=== PATIENT | male | born 1945 | race Caucasian/White ===

== ENCOUNTER 2018-07-14 16:07 | Inpatient (IN) | payer OTHER, BC ==
--- NOTE | 2018-07-14 16:34 | PDOC ---
History of Present Illness - General Chief Complaint: Weakness Stated Complaint: WEAKNESS Time Seen by Provider: 07/14/18 16:19 - History of Present Illness Initial Comments: 07/14/18 17:38 The patient is a 72 year old male with a history of HTN, HLD, DM, afib, bladder cancer who presents for evaluation of weakness. The patient reports that he was sitting in a chair when he experienced dizziness and tinnitus with generalized weakness and 1 episode of non-bilious, non-bloody vomiting. He reported that he was unsteady on his feet prompting his presentation to the ED for further evaluation. He reports that his symptoms have been intermittent since arriving to the ED and otherwise denies fevers, chills, SOB, chest pain, abdominal pain, numbness, tingling, focal weakness, or changes with urination or bowel movements. NIH Stroke Scale - Last Known Well Date/Time & Onset Date Last Known Well: 07/14/18 Time Last Known Well: 15:00 - Initial Evaluation Level of consciousness: Alert Ask patient the month and their age: Answers both correctly Ask patient to open & close eyes; make fist and let go: Obeys both correctly Best gaze (horizontal eye movement): Normal Visual field testing: No visual field loss Facial paresis (Show teeth/raise eyebrows/close eyes tight): Normal symmetrical movement Motor Function: Left Arm: Normal Motor Function: Right Arm: Normal (extends arm 90 (or 45) degrees for 10 seconds without drift Motor Function: Left Leg: Normal (extends leg 30 degrees for 5 seconds without drift) Motor Function: Right Leg: Normal (extends leg 30 degrees for 5 seconds without drift) Limb Ataxia: No ataxia Sensory(Use pinprick test arms,legs,trunk,face/side to side): Normal Best language (Describe picture, name items, read sentences): No Aphasia Dysarthria (read several words): Normal articulation Extinction and Inattention: No abnormality - Total Score NIH Stroke Scale Score: 0 Past History - Past Medical History Allergies/Adverse Reactions: Allergies Allergy/AdvReac Type Severity Reaction Status Date / Time No Known Drug Allergies Allergy Verified 07/14/18 16:28 ADHESIVE TAPE AdvReac Intermediate Uncoded 07/14/18 16:28 Home Medications: Ambulatory Orders Unobtainable 07/14/18 Anemia: No Asthma: No Cancer: Yes (BLADDER) Cardiac Disorders: Yes (HISTORY OF PALPITATIONS HAD CARDIAC ABLATION) CVA: No COPD: No CHF: No Dementia: No Diabetes: Yes (NIDDM) GI Disorders: No Disorders: Yes (KIDNEY STONES) HTN: Yes Hypercholesterolemia: Yes Liver Disease: No Seizures: No Thyroid Disease: No - Surgical History Abdominal Surgery: No Appendectomy: Yes Cardiac Surgery: Yes (QUADRUPLE BYPASS,CARDIAC ABLATION 1999) Cholecystectomy: No Lung Surgery: No Neurologic Surgery: No Orthopedic Surgery: No - Immunization History Immunization Up to Date: Yes - Suicide/Smoking/Psychosocial Hx Smoking History: Never smoked Have you smoked in the past 12 months: No Number of Cigarettes Smoked Daily: 30 If you are a former smoker, when did you quit?: 03/26/12 Information on smoking cessation initiated: No 'Breaking Loose' booklet given: 04/14/12 Hx Alcohol Use: No Drug/Substance Use Hx: No Substance Use Type: None Hx Substance Use Treatment: No Review of Systems - Review of Systems Comments:: 07/14/18 17:44 Constitutional: Weakness. No fevers, chills, fatigue, malaise HEENT: Tinnitus. No Rhinorrhea, nasal congestion, visual changes Cardiovascular: Lightheadedness. No chest pain, syncope, palpitations, Respiratory: No Cough, SOB, Hemoptysis, Gastrointestinal: Nausea, vomiting. No Abdominal pain, Constipation, Diarrhea, Melena Genitourinary: No Dysuria, Frequency, Urgency, Hesitancy, Hematuria, Flank pain Musculoskeletal: No Myalgia, arthralgia Skin: No rashes, itching, bruising, pallor Neurologic: Dizziness. No Headache, Numbness, Weakness, or Tingling Psychiatric: No Hallucinations. No SI or HI *Physical Exam - Vital Signs Last Vital Signs Temp Pulse Resp BP Pulse Ox 62 16 189/90 H 98 07/14/18 16:10 07/14/18 16:10 07/14/18 16:10 07/14/18 16:10 - Physical Exam Comments: 07/14/18 17:46 General Appearance: Nourished. No Apparent Distress HEENT: EOMI, DENNIS. Mild right gaze nystagmus on exam. Normal TMs. No Pharyngeal Erythema, Tonsillar Exudate, Tonsillar Erythema Neck: No Cervical Lymphadenopathy Respiratory/Chest: Lungs Clear, Normal Breath Sounds. No Crackles, Rales, Rhonchi, Wheezing Cardiovascular: Regular Rhythm, Regular Rate. No Murmur, Gallops, Rubs Gastrointestinal/Abdominal: Normal Bowel Sounds, Soft. No Guarding, Rebound, Tenderness Musculoskeletal: No CVA Tenderness Extremity: Normal Capillary Refill Integumentary: Normal Color, Dry, Warm Neurologic: radio communication coordinator II-XII NML intact, Fully Oriented, Alert, Normal Mood/Affect, Normal Response, Motor Strength 5/5. Normal Finger to Nose and Heel to Bern[place] ED Treatment Course - LABORATORY CBC & Chemistry Diagram: 07/14/18 18:00 07/14/18 18:00 Medical Decision Making - Medical Decision Making 07/14/18 17:48 The patient is a 72 year old male with a history of HTN, HLD, DM, afib, bladder cancer who presents for evaluation of weakness. Differential includes but is not limited to: Vertigo, Intracranial process, Dehydration, Infectious, Metabolic Derangement. Given the patient's history and physical exam, we will obtain a cbc, cmp, troponin, ekg, ua, head ct to evaluate further. We will treat with iv fluids and continue to monitor and reassess while here in the ED. 07/14/18 20:40 CBC, cmp, troponin is unremarkable. Head CT is unremarkable as read by our radiologist. UA demonstrates positive nitrites, positive leuk esterase, and elevated wbc to 400s consistent with a UTI. Given the patient's pre-syncopal episode and uti, we believe he requires observation admission for further management and monitoring. We will treat the patient with ceftriaxone. We discussed the case with the admitting team who accepted the patient for admission. *DC/Admit/Observation/Transfer Diagnosis at time of Disposition: Pre-syncope UTI (urinary tract infection) Qualifiers: Urinary tract infection type: site unspecified Hematuria presence: without hematuria Qualified Code(s): N39.0 - Urinary tract infection, site not specified - Discharge Dispostion Condition at time of disposition: Stable Decision to Admit order: Yes - Referrals Referrals: Bharat Saldaña MD [Primary Care Provider] - - Patient Instructions - Post Discharge Activity
--- NOTE | 2018-07-14 17:14 | PDOC ---
Attending Attestation - HPI HPI: 07/14/18 17:55 The patient is a 72 year old male, with a significant past medical history of HTN, HLD, DM, afib, bladder cancer, who presents to the ED complaining of weakness onset today. He notes that he was sitting in a chair when his symptoms started. He also reports dizziness, tinnitus and 1 episode of emesis, nonbloody and nonbilious. He notes that he got up on his feet and felt "unsteady", which is the main reason why he came to the ED for evaluation. He denies any urinary or bowel incontinence. The patient denies chest pain, shortness of breath, headache, fever, chills, diarrhea or constipation. Denies dysuria, frequency, urgency and hematuria. Allergies: Past surgical history: QUADRUPLE BYPASS,CARDIAC ABLATION 1999, Appendectomy Social History: No alcohol, tobacco or drug use reported - Physicial Exam PE: 07/14/18 17:55 General Appearance: Nourished. No Apparent Distress HEENT: EOMI, DENNIS. Mild right gaze nystagmus on exam. Normal TMs. No Pharyngeal Erythema, Tonsillar Exudate, Tonsillar Erythema Neck: No Cervical Lymphadenopathy Respiratory/Chest: Lungs Clear, Normal Breath Sounds. No Crackles, Rales, Rhonchi, Wheezing Cardiovascular: Regular Rhythm, Regular Rate. No Murmur, Gallops, Rubs Gastrointestinal/Abdominal: Normal Bowel Sounds, Soft. 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 Normal Finger to Nose and Heel to Bern[place] <David Phan - Last Filed: 07/14/18 18:00> - Resident Resident Name: Tucker Power - ED Attending Attestation I have performed the following: I have examined & evaluated the patient, The case was reviewed & discussed with the resident, I agree w/resident's findings & plan, Exceptions are as noted - Medical Decision Making 07/14/18 21:16 pt has UTI and antibiotics started pt admitted <Sharonda Cherry - Last Filed: 07/14/18 21:16>
[2018-07-14] MEDS ORDERED: SODIUM CHLORIDE 1,000 ML IV STA (17:49)
[2018-07-14] MEDS ORDERED: ONDANSETRON 4 MG/2 ML VIAL IVPUSH ONE (17:49)
[2018-07-14] MEDS ORDERED: MECLIZINE HCL 25 MG TABLET (FP) PO ONE (17:50)
[2018-07-14 18:11] LABS: BASO % 0.5 % (0-2.0); EOS % 0.4 % (0-4.5); HEMATOCRIT 49.6 % (35.4-49); HEMOGLOBIN 16.5 GM/dL (11.7-16.9); LYMPH % 9.8 % (8-40); MCH 28.8 pg (25.7-33.7); MCHC 33.3 g/dl (32.0-35.9); MEAN CELL VOLUME 86.3 fl (80-96); MEAN PLT VOLUME 8.4 fl (7.5-11.1); MONO % 3.2 % (3.8-10.2); NEUT % 86.1 % (42.8-82.8); PLATELET COUNT 200 K/MM3 (134-434); RBC 5.74 M/mm3 (4.00-5.60); RDW 14.5 % (11.9-15.9); WHITE BLOOD COUNT 8.5 K/mm3 (4.0-10.0)
[2018-07-14] MEDS ORDERED: ONDANSETRON 4 MG/2 ML VIAL ONE (18:34)
[2018-07-14] MEDS ORDERED: MECLIZINE HCL 12.5 MG TABLET ONE (18:34)
[2018-07-14 18:37] LABS: INR 1.13 (0.83-1.09); PROTHROMBIN TIME (PATIENT) 13.4 SEC (9.7-13.0)
[2018-07-14 18:40] LABS: ACTIVATED PTT 34.2 SECONDS (25.2-36.5)
[2018-07-14 18:41] LABS: ALBUMIN 3.6 g/dl (3.4-5.0); ALK PHOS 91 U/L (45-117); ANION GAP 6 MMOL/L (8-16); BILIRUBIN,TOTAL 0.3 mg/dL (0.2-1); BLOOD UREA NITROGEN 22 mg/dL (7-18); CALCIUM 9.1 mg/dL (8.5-10.1); CHLORIDE 106 mmol/L (98-107); CO2 28 mmol/L (21-32); CREATININE 1.1 mg/dL (0.55-1.3); GLUCOSE,RANDOM 157 mg/dL (74-106); N-TERMINAL BNP 372.7 pg/ml (5-125); POTASSIUM 4.4 mmol/L (3.5-5.1); SGOT/AST 29 U/L (15-37); SGPT/ALT 34 U/L (13-61); SODIUM 140 mmol/L (136-145); TOT PROT 7.6 g/dl (6.4-8.2)
[2018-07-14 19:21] LABS: URINE APPEARANCE CLOUDY; URINE BILIRUBIN NEGATIVE (<2.0 mg/dL); URINE COLOR YELLOW; URINE GLUCOSE (UA) NEGATIVE (NEGATIVE); URINE KETONE NEGATIVE (NEGATIVE); URINE LEUK ESTERASE 3+ (NEGATIVE); URINE NITRITE POSITIVE (NEGATIVE); URINE PROTEIN 2+ (NEGATIVE); URINE UROBILINOGEN NEGATIVE mg/dL (0.2-1.0)
[2018-07-14 19:26] LABS: EPI CELLS RARE /HPF (FEW); URINE BACTERIA FEW /hpf (NONE SEEN); URINE MUCUS RARE
[2018-07-14] MEDS ORDERED: CEFTRIAXONE 1 GM in DEXTROSE 5%-WATER - 100 ML IVPB ONE (19:34)
--- NOTE | 2018-07-14 20:41 | HP ---
Admitting History and Physical - Primary Care Physician PCP: Izaiah Cartwright - Admission History of Present Illness: 72 year old male with a history of HTN, HLD, DM, afib, bladder cancer who presents for evaluation of weakness. The patient reports that he was sitting in a chair when he experienced dizziness and tinnitus with generalized weakness and 1 episode of non-bilious, non-bloody vomiting. He reported that he was unsteady on his feet prompting his presentation to the ED for further evaluation. He reports that his symptoms have been intermittent since arriving to the ED and otherwise denies fevers, chills, SOB, chest pain, abdominal pain, numbness, tingling, focal weakness, or changes with urination or bowel movements. - Past Medical History Cardiovascular: Yes: AFIB, HTN, Hyperlipdemia Heme/Onc: Yes: Cancer (bladder) Endocrine: Yes: Diabetes Mellitus - Smoking History Smoking history: Never smoked Have you smoked in the past 12 months: No Aproximately how many cigarettes per day: 30 If you are a former smoker, when did you quit?: 03/26/12 - Alcohol/Substance Use Hx Alcohol Use: No Home Medications - Allergies Allergies/Adverse Reactions: Allergies Allergy/AdvReac Type Severity Reaction Status Date / Time No Known Drug Allergies Allergy Verified 07/14/18 16:28 ADHESIVE TAPE AdvReac Intermediate Uncoded 07/14/18 16:28 - Home Medications Home Medications: Ambulatory Orders Aspirin [ASA -] 81 mg PO DAILY 07/15/18 Physical Examination Vital Signs: Vital Signs Temperature Pulse Rate 62 07/14/18 16:10 Respiratory Rate 16 07/14/18 16:10 Blood Pressure 189/90 H 07/14/18 16:10 O2 Sat by Pulse Oximetry (%) 98 07/14/18 16:10 Constitutional: Yes: No Distress HENT: Yes: Atraumatic Neck: Yes: Supple Cardiovascular: Yes: Regular Rate and Rhythm Respiratory: Yes: CTA Bilaterally Gastrointestinal: Yes: Normal Bowel Sounds Extremities: Yes: WNL Neurological: Yes: Alert, Oriented Labs: CBC, BMP 07/14/18 18:00 07/14/18 18:00 Imaging - Results X-ray: Report Reviewed Cat Scan: Report Reviewed Problem List - Problems (1) Pre-syncope Assessment/Plan: tele monitoring fu cardiac enzyme echo cardiology consult Code(s): R55 - SYNCOPE AND COLLAPSE (2) UTI (urinary tract infection) Assessment/Plan: send ucx id consult to determine the need for abx Code(s): N39.0 - URINARY TRACT INFECTION, SITE NOT SPECIFIED Qualifiers: Urinary tract infection type: site unspecified Hematuria presence: without hematuria Qualified Code(s): N39.0 - Urinary tract infection, site not specified Assessment/Plan Laboratory Tests 07/14/18 07/14/18 07/14/18 18:00 18:00 18:00 WBC 8.5 RBC 5.74 H Hgb 16.5 Hct 49.6 H D MCV 86.3 MCH 28.8 MCHC 33.3 RDW 14.5 Plt Count 200 MPV 8.4 Absolute Neuts (auto) 7.3 Neutrophils % 86.1 H Lymphocytes % 9.8 D Monocytes % 3.2 L Eosinophils % 0.4 Basophils % 0.5 Nucleated RBC % 0 PT with INR 13.40 H INR 1.13 H PTT (Actin FS) 34.2 Sodium 140 Potassium 4.4 Chloride 106 Carbon Dioxide 28 Anion Gap 6 L BUN 22 H Creatinine 1.1 Creat Clearance w eGFR > 60 Random Glucose 157 H Calcium 9.1 Total Bilirubin 0.3 AST 29 ALT 34 Alkaline Phosphatase 91 Creatine Kinase 70 Creatine Kinase Index CK-MB (CK-2) Troponin I < 0.02 B-Natriuretic Peptide 372.7 H Total Protein 7.6 Albumin 3.6 Urine Color Urine Appearance Urine pH Ur Specific Axis Urine Protein Urine Glucose (UA) Urine Ketones Urine Blood Urine Nitrite Urine Bilirubin Urine Urobilinogen Ur Leukocyte Esterase Urine WBC (Auto) Urine RBC (Auto) Ur Epithelial Cells Urine Bacteria Urine Mucus 07/14/18 07/14/18 07/15/18 18:46 22:25 07:10 WBC 7.3 RBC 5.25 Hgb 14.6 Hct 45.0 MCV 85.8 MCH 27.9 MCHC 32.5 RDW 14.8 Plt Count 192 MPV 8.5 Absolute Neuts (auto) 5.0 Neutrophils % 68.5 D Lymphocytes % 23.3 D Monocytes % 6.4 D Eosinophils % 1.5 D Basophils % 0.3 Nucleated RBC % 0 PT with INR INR PTT (Actin FS) Sodium Potassium Chloride Carbon Dioxide Anion Gap BUN Creatinine Creat Clearance w eGFR Random Glucose Calcium Total Bilirubin AST ALT Alkaline Phosphatase Creatine Kinase 109 Creatine Kinase Index CK-MB (CK-2) Troponin I < 0.02 B-Natriuretic Peptide Total Protein Albumin Urine Color Yellow Urine Appearance Cloudy Urine pH 5.0 Ur Specific Axis 1.015 Urine Protein 2+ H Urine Glucose (UA) Negative Urine Ketones Negative Urine Blood 2+ H Urine Nitrite Positive Urine Bilirubin Negative Urine Urobilinogen Negative Ur Leukocyte Esterase 3+ H Urine WBC (Auto) 458 Urine RBC (Auto) 10 Ur Epithelial Cells Rare Urine Bacteria Few Urine Mucus Rare 07/15/18 07:10 WBC RBC Hgb Hct MCV MCH MCHC RDW Plt Count MPV Absolute Neuts (auto) Neutrophils % Lymphocytes % Monocytes % Eosinophils % Basophils % Nucleated RBC % PT with INR INR PTT (Actin FS) Sodium 140 Potassium 4.0 Chloride 106 Carbon Dioxide 26 Anion Gap 8 BUN 22 H Creatinine 1.1 Creat Clearance w eGFR > 60 Random Glucose 89 Calcium 8.9 Total Bilirubin 0.6 AST 37 ALT 33 Alkaline Phosphatase 80 Creatine Kinase 199 Creatine Kinase Index 1.5 CK-MB (CK-2) 3.0 Troponin I 0.02 B-Natriuretic Peptide Total Protein 7.0 Albumin 3.4 Urine Color Urine Appearance Urine pH Ur Specific Axis Urine Protein Urine Glucose (UA) Urine Ketones Urine Blood Urine Nitrite Urine Bilirubin Urine Urobilinogen Ur Leukocyte Esterase Urine WBC (Auto) Urine RBC (Auto) Ur Epithelial Cells Urine Bacteria Urine Mucus Active Medications Generic Name Dose Route Start Last Admin Trade Name Freq PRN Reason Stop Dose Admin Acetaminophen 650 mg 07/14/18 20:49 Tylenol - PO Q6H PRN FEVER
[2018-07-14] MEDS ORDERED: ACETAMINOPHEN 325 MG TABLET (FP) PO PRN (20:49)
[2018-07-14] MEDS ORDERED: CEFTRIAXONE 1 GM/50 ML BAG ONE ×2 (21:05→23:07)
[2018-07-15 07:29] LABS: BASO % 0.3 % (0-2.0); EOS % 1.5 % (0-4.5); HEMOGLOBIN 14.6 GM/dL (11.7-16.9); LYMPH % 23.3 % (8-40); MCH 27.9 pg (25.7-33.7); MCHC 32.5 g/dl (32.0-35.9); MEAN CELL VOLUME 85.8 fl (80-96); MEAN PLT VOLUME 8.5 fl (7.5-11.1); MONO % 6.4 % (3.8-10.2); NEUT % 68.5 % (42.8-82.8); PLATELET COUNT 192 K/MM3 (134-434); RBC 5.25 M/mm3 (4.00-5.60); RDW 14.8 % (11.9-15.9); WHITE BLOOD COUNT 7.3 K/mm3 (4.0-10.0)
[2018-07-15 08:54] LABS: ALBUMIN 3.4 g/dl (3.4-5.0); ALK PHOS 80 U/L (45-117); ANION GAP 8 MMOL/L (8-16); BILIRUBIN,TOTAL 0.6 mg/dL (0.2-1); BLOOD UREA NITROGEN 22 mg/dL (7-18); CALCIUM 8.9 mg/dL (8.5-10.1); CHLORIDE 106 mmol/L (98-107); CO2 26 mmol/L (21-32); CREATININE 1.1 mg/dL (0.55-1.3); GLUCOSE,RANDOM 89 mg/dL (74-106); SGOT/AST 37 U/L (15-37); SGPT/ALT 33 U/L (13-61); SODIUM 140 mmol/L (136-145)
--- NOTE | 2018-07-15 12:25 | CON.CARD ---
Consult Consult Specialty:: Cardiology Referred by:: Dr. Cartwright Reason for Consultation:: Dizziness - History of Present Illness Chief Complaint: dizziness, unsteady gait History of Present Illness: 72-year-old man with the history of hypertension, hyperlipidemia, diabetes type II, coronary artery disease with four-vessel CABG in 1999, arrhythmia at that time which I believe was atrial flutter versus atrial fibrillation. He underwent two ablations in 2000, has not been on anticoagulation for some time due to hematuria from Bladder cancer, has been treated at [facility] for his bladder cancer with remission, is still being treated, also peripheral artery disease with right lower extremity stents, Bradycardia when on bisoprolol with improvement after stopping it with no evidence of high degree heart block or symptomatic bradycardia on prior Holter monitors, now admitted with dizziness and unsteady gait. Pt has a history of vertigo and states these symptoms were similar but much worse. states that he developed sudden onset loud ringing in his ear and when he stood up felt fullness in his head and severe dizziness, he walked down to his buildings lobby but was very unsteady and leaning to the side. he then had the doorman call EMS. currently dizziness has resolved. still hears mild ringing in the left ear. denies syncope. no chest pain or sob or palpitations. EKG 09/11/2016 Sinus bradycardia, 47 beats per minute, intermittent junctional rhythm, APCs, septal infarct, possible lateral infract. Stress 09/11/2016 Exercise treadmill stress test, the patient performed 3 minutes 46 seconds of standard Glenn protocol, target heart rate was not achieved, test was terminated due to leg pain, no chest pain with exercise, heart rate increased from 50 to 82 beats per minute, stress ECG was nondiagnostic as target heart rate was not achieved. Stress 09/14/2016 Pharmacologic nuclear stress test likely diaphragmatic attenuation artifact, there is no evidence of vasodilator induced ischemia, LVEF 57%. Holter monitor 09/11/2016 to 09/12/2016 Sinus bradycardia, intermittent junctional bradycardia, occasional PVCs, no episodes of high degree heart block. Carotid Doppler 09/14/2016 Bilateral plaque with no evidence of significant stenosis. Echo 09/14/2016 Normal left ventricular size and function, normal right ventricular size and function, no pericardial effusion, mildly dilated ascending aorta 3.8 cm, mild mitral regurgitation, insufficient TR to measure pulmonary artery pressure. EC03/11/18 sinus bradycardia 58bpm, apcs, septal infarct. 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 Cardio/Vascular: Yes: AFIB, CAD, HTN, Hyperlipdemia Renal/: Yes: Cancer Endocrine: Yes: Diabetes Mellitus - Past Surgical History Past Surgical History: Yes: CABG - Alcohol/Substance Use Hx Alcohol Use: No - Smoking History Smoking history: Never smoked Have you smoked in the past 12 months: No Aproximately how many cigarettes per day: 30 If you are a former smoker, when did you quit?: 03/26/12 - Social History ADL: Independent History of Recent Travel: No Home Medications - Allergies Allergies/Adverse Reactions: Allergies Allergy/AdvReac Type Severity Reaction Status Date / Time No Known Drug Allergies Allergy Verified 07/14/18 16:28 ADHESIVE TAPE AdvReac Intermediate Uncoded 07/14/18 16:28 - Home Medications Home Medications: Ambulatory Orders Aspirin [ASA -] 81 mg PO DAILY 07/15/18 Family Disease History - Family Disease History Family History: Denies Review of Systems - Review of Systems Constitutional: reports: Weakness. denies: No Symptoms, Chills, Diaphoresis, Fever, Lethargy, Loss of Appetite, Malaise, Night Sweats, Unintentional Wgt. Loss, Other Eyes: denies: No Symptoms, Blind Spots, Blurred Vision, Double Vision, Eye Pain , Floaters, Photophobia, Recent Change in Vision, Other HENT: reports: Ringing in Ears. denies: No Symptoms, Difficult Swallowing, Ear Discharge, Ear Pain, Epistaxis, Gingival Bleeding, Hearing Loss, Mouth Swelling , Nasal Congestion, Ocular Prosthesis, Throat Pain, Toothache, Other Neck: denies: No Symptoms, Decreased ROM, Lumps, Pain on Movement, Stiffness, Swollen Glands, Tenderness, Other Cardiovascular: denies: No Symptoms, Chest Pain, Edema, Palpitations, Shortness of Breath, Other Respiratory: denies: No Symptoms, Cough, Exercise Intolerance, Hemoptysis, Orthopnea, PND, Snoring, SOB, SOB on Exertion, Wheezing, Other Gastrointestinal: denies: No Symptoms, Abdominal Pain, Bloating, Constipation, Diarrhea, Dysphagia, Indigestion, Melena, Nausea, Rectal Bleeding, Vomiting, Vomiting Blood, Other Genitourinary: denies: No Symptoms, Burning, Discharge, Dysuria, Flank Pain, Frequency, Hematuria, Incontinence, Lesions, Menses, Pain, Testicular Mass, Testicular Pain, Testicular Swelling, Urgency, Vaginal Bleeding, Other Breasts: denies: No Symptoms Reported, See HPI, Breast Implants, Discharge from Nipple, Lumps, Pain, Skin Changes, Other Musculoskeletal: denies: No Symptoms, Back Pain, Crepitus, Decreased ROM, Extremity Pain, Joint Pain, Joint Swelling, Muscle Pain, Muscle Cramps, Muscle Weakness, Other Integumentary: denies: No Symptoms, Blister, Bruising, Change in Color, Eczema, Erythema, Incision, Lesions, Lump, Pallor, Pruritis, Rash, Wound, Other Neurological: reports: Dizziness, Unsteady Gait. denies: No Symptoms, Change in LOC, Change in Speech, Confusion, Headache, Incoordination, Numbness, Parasthesia, Pre-Existing Deficit, Seizure, Syncope, Tremors, Weakness, Other Endocrine: denies: No Symptoms, Excessive Sweating, Flushing, Increased Hunger, Increased Thirst, Intolerance to Cold, Intolerance to Heat, Unexplained Weight Gain, Unexplained Weight Loss, Other Hematology/Lymphatic: denies: No Symptoms, Easily Bruised, Excessive Bleeding, Swollen Glands, Other Psychiatric: denies: No Symptoms, Altered Sleep Pattern, Anxiety, Depression, Hallucinations, Panic, Paranoia, Suicidal, Other - Risk Factors Known Risk Factors: Yes: Age, Diabetes Mellitus, Hypercholesterolemia, Hypertension Vital Signs: Vital Signs Temperature Pulse Rate 62 07/15/18 09:22 Respiratory Rate 16 07/15/18 09:22 Blood Pressure 125/67 07/15/18 09:22 O2 Sat by Pulse Oximetry (%) 98 07/15/18 09:22 Constitutional: Yes: Well Nourished, No Distress, Calm Eyes: Yes: WNL, Conjunctiva Clear, EOM Intact HENT: Yes: WNL, Atraumatic, Normocephalic Neck: Yes: WNL, Supple, Trachea Midline Respiratory: Yes: WNL, Regular, CTA Bilaterally. No: Rales, Rhonchi, Wheezes Gastrointestinal: Yes: WNL, Normal Bowel Sounds, Soft. No: Distention, Tenderness Renal/: Yes: WNL Cardiovascular: Yes: WNL, Regular Rate and Rhythm. No: Bradycardia, Tachycardia , Pulse Irregular, Gallop, Rub, Varicosities JVD: No Carotid Bruit: No PMI: Non-Displaced Heart Sounds: Yes: S1, S2. No: Split S2, S3, S4, Clicks, Gallop, Rub, Bruit Murmur: No: Systolic Murmur, Diastolic Murmur Musculoskeletal: Yes: WNL Extremities: Yes: WNL Edema: No Peripheral Pulses WNL: Yes Neurological: Yes: Alert, Oriented Psychiatric: Yes: Alert, Oriented - Other Data Labs, Other Data: CBC, BMP 07/15/18 07:10 07/15/18 07:10 INR, PTT INR 1.13 (0.83-1.09) H 07/14/18 18:00 Troponin, BNP 07/14/18 07/14/18 07/15/18 18:00 22:25 07:10 Troponin I < 0.02 < 0.02 0.02 B-Natriuretic Peptide 372.7 H Troponin, BNP 07/14/18 07/14/18 07/15/18 18:00 22:25 07:10 Troponin I < 0.02 < 0.02 0.02 B-Natriuretic Peptide 372.7 H ekg-sinus rebecca 57bpm, apcs, anteroseptal infarct age undetermined Echo: Report Reviewed Prior Cardiac Procedures: CABG Imaging - Results Chest X-ray: Report Reviewed, Image Reviewed EKG: Report Reviewed, Image Reviewed Other: Report Reviewed, Image Reviewed (tele-currently nsr 60-70s) Assessment/Plan 72-year-old man with the history of hypertension, hyperlipidemia, diabetes type II, coronary artery disease with four-vessel CABG in 1999, arrhythmia at that time which I believe was atrial flutter versus atrial fibrillation. He underwent two ablations in 2000, has not been on anticoagulation for some time due to hematuria from Bladder cancer, has been treated at [facility] for his bladder cancer with remission, is still being treated, also peripheral artery disease with right lower extremity stents, Bradycardia when on bisoprolol with improvement after stopping it with no evidence of high degree heart block or symptomatic bradycardia on prior Holter monitors, now admitted with dizziness and unsteady gait. Pt has a history of vertigo and states these symptoms were similar but much worse. states that he developed sudden onset loud ringing in his ear and when he stood up felt fullness in his head and severe dizziness, he walked down to his buildings lobby but was very unsteady and leaning to the side. he then had the doorman call EMS. currently dizziness has resolved. still hears mild ringing in the left ear. denies syncope. no chest pain or sob or palpitations. EKG 09/11/2016 Sinus bradycardia, 47 beats per minute, intermittent junctional rhythm, APCs, septal infarct, possible lateral infract. Stress 09/11/2016 Exercise treadmill stress test, the patient performed 3 minutes 46 seconds of standard Glenn protocol, target heart rate was not achieved, test was terminated due to leg pain, no chest pain with exercise, heart rate increased from 50 to 82 beats per minute, stress ECG was nondiagnostic as target heart rate was not achieved. Stress 09/14/2016 Pharmacologic nuclear stress test likely diaphragmatic attenuation artifact, there is no evidence of vasodilator induced ischemia, LVEF 57%. Holter monitor 09/11/2016 to 09/12/2016 Sinus bradycardia, intermittent junctional bradycardia, occasional PVCs, no episodes of high degree heart block. Carotid Doppler 09/14/2016 Bilateral plaque with no evidence of significant stenosis. Echo 09/14/2016 Normal left ventricular size and function, normal right ventricular size and function, no pericardial effusion, mildly dilated ascending aorta 3.8 cm, mild mitral regurgitation, insufficient TR to measure pulmonary artery pressure. EC03/11/18 sinus bradycardia 58bpm, apcs, septal infarct. Dizziness-uncertain etiology -possible vertigo possible TIA -[facility] Neurology evaluation -pt has known bradyarrhythmia for years that has been asymptomatic, currently no evidence of high degree heart block, HR is wnl - Holter monitor 09/2016 showed only sinus bradycardia, occasional junctional rhythm, narrow complex, no other evidence of high degree block. - Currently no absolute indication for permanent pacemaker placement, but is monitored closely as outpatient as he may need in the future -if pt remains inpatient would monitor on tele, if discharged will arrange another outpatient event monitor to evaluate further for higher degree heart block -avoid all AV lizett blockers Coronary artery disease status post CABG in 1999. - No ischemia on nuclear stress test 09/14/2016 with normal EF. - The patient should be taking aspirin 81 mg daily if no bleeding from his procedures -statin if needed for goal LDL less than 100. - Beta-cecilio was stopped as above. - Normal LV function on most recent echocardiogram. -no concerning symptoms at this time, will cont to monitor Arrhythmia History of an arrhythmia which I presumed was atrial fibrillation or atrial flutter and underwent two oblations in 2000. - Very rare palpitations 1-2x per year making holter monitor difficult to time. - Taken off of beta-cecilio as above due to bradycardia. - He has not been on full anticoagulation due to hematuria from his bladder cancer and procedures. -If indeed it was afib he had in the past he has palpitations only 1-2x per year and thus the Risk is likely greater than the Benefit of full AC at this time given his ongoing bladder treatments. Once he completes his bladder treatments if it is felt that full AC is safe would reconsider at that time. -if it was aflutter he had in the past and not afib and now s/p ablation likely risk of thromboembolism is less and would be less inclined to restart full AC - Would continue aspirin 81 mg daily for now -outpatient fup
--- NOTE | 2018-07-15 12:30 | CON.ID ---
Consult Consult Specialty:: infetious diseases Reason for Consultation:: ams ,uti - History of Present Illness Chief Complaint: confusion History of Present Illness: 72-year-old man with the history of hypertension, hyperlipidemia, diabetes type II, coronary artery disease with four-vessel CABG in 1999, arrhythmia at that time which I believe was atrial flutter versus atrial fibrillation. He underwent two ablations in 2000, has not been on anticoagulation for some time due to hematuria from Bladder cancer, has been treated at [facility] [place] his bladder cancer with remission, is still being treated, also peripheral artery disease with right lower extremity stents, Bradycardia when on bisoprolol with improvement after stopping it with no evidence of high degree heart block or symptomatic bradycardia on prior Holter monitors, now admitted with dizziness and unsteady gait. Pt has a history of vertigo and states these symptoms were similar but much worse. states that he developed sudden onset loud ringing in his ear and when he stood up felt fullness in his head and severe dizziness, he walked down to his buildings lobby but was very unsteady and leaning to the side. he then had the doorman call EMS. currently dizziness has resolved. still hears mild ringing in the left ear. denies syncope. no chest pain or sob or palpitations. - History Source History Provided By: Patient, Medical Record Limitations to Obtaining History: Clinical Condition - Past Medical History Cardio/Vascular: Yes: AFIB, HTN, Hyperlipdemia Endocrine: Yes: Diabetes Mellitus - Alcohol/Substance Use Hx Alcohol Use: No - Smoking History Smoking history: Never smoked Have you smoked in the past 12 months: No Aproximately how many cigarettes per day: 30 If you are a former smoker, when did you quit?: 03/26/12 Home Medications - Allergies Allergies/Adverse Reactions: Allergies Allergy/AdvReac Type Severity Reaction Status Date / Time No Known Drug Allergies Allergy Verified 07/14/18 16:28 ADHESIVE TAPE AdvReac Intermediate Uncoded 07/14/18 16:28 - Home Medications Home Medications: Ambulatory Orders Aspirin [ASA -] 81 mg PO DAILY 07/15/18 Review of Systems Unable to obtain ROS, reason: unable to obtain Physical Exam Vital Signs: Vital Signs Temperature Pulse Rate 62 07/15/18 09:22 Respiratory Rate 16 07/15/18 09:22 Blood Pressure 125/67 07/15/18 09:22 O2 Sat by Pulse Oximetry (%) 98 11/13/18 09:22 Constitutional: Yes: Well Nourished, Calm, Other Eyes: Yes: Conjunctiva Clear Neck: Yes: Supple, Trachea Midline Cardiovascular: Yes: Pulse Irregular Respiratory: Yes: Regular, CTA Bilaterally Gastrointestinal: Yes: Normal Bowel Sounds, Soft Renal/: Yes: Other (patient leaking urine) Musculoskeletal: Yes: WNL Extremities: Yes: WNL Neurological: Yes: Alert, Confusion Psychiatric: Yes: Other Labs: CBC, BMP 07/15/18 07:10 07/15/18 07:10 Imaging - Results Chest X-ray: Report Reviewed, Image Reviewed Cat Scan: Report Reviewed, Image Reviewed Assessment/Plan Problem List - Problems (1) Pre-syncope Code(s): R55 - SYNCOPE AND COLLAPSE (2) UTI (urinary tract infection) Code(s): N39.0 - URINARY TRACT INFECTION, SITE NOT SPECIFIED Qualifiers: Urinary tract infection type: site unspecified Hematuria presence: without hematuria Qualified Code(s): N39.0 - Urinary tract infection, site not specified r/o urinary retention patient extremely confused,talking well plan await for cx report will start patient on abx will adjust according to cx report psych evaluation rest as per the team
--- NOTE | 2018-07-15 14:42 | ECHO ---
Name: CORNELIO LAMBERT Exam:Adult Echocardiogram Study Date: 07/15/2018 09:36 AM Age: 72 yrs Reason For Study: SYNCOPE Height: 69 in Weight: 200 lb BSA: 2.1 m2 MMode/2D Measurements & Calculations IVSd: 1.1 cm Ao root diam: 3.7 cm LVIDd: 4.8 cm LA dimension: 3.8 cm LVIDs: 3.1 cm LVPWd: 0.95 cm EDV(Teich): 107.3 ml ESV(Teich): 36.6 ml Doppler Measurements & Calculations MV E max norman: 43.9 cm/sec Ao V2 max: 130.3 cm/sec MV A max norman: 59.7 cm/sec Ao max P.8 mmHg MV E/A: 0.74 LV V1 max P.1 mmHg PI end-d norman: 117.4 cm/sec LV V1 max: 73.3 cm/sec Med Peak E' Norman: 4.3 cm/sec Med E/e': 10.2 Lat Peak E' Norman: 10.1 cm/sec Lat E/e': 4.3 Procedure A two-dimensional transthoracic echocardiogram with color flow and Doppler was performed. Left Ventricle The left ventricular size, thickness and function are normal. Ejection Fraction = 55. Grade I diastol ic dysfunction, (abnormal relaxation pattern). Right Ventricle The right ventricle is normal in size and function. Atria Normal left and right atrial size and function. Mitral Valve The mitral valve is grossly normal. There is trace mitral regurgitation. Tricuspid Valve The tricuspid valve is not well visualized, but is grossly normal. There was insufficient TR detected to calculate RV systolic pressure. Aortic Valve The aortic valve is normal in structure and function. There is mild aortic valve thickening. No hemodynamically significant valvular aortic stenosis. Pulmonic Valve The pulmonic valve is not well seen, but is grossly normal. Trace to mild pulmonic valvular regurgita tion. Great Vessels Mild aortic root dilatation. Pericardium/Pleura There is no pericardial effusion. Interpretation Summary The left ventricular size, thickness and function are normal Normal left and right atrial size and function. Grade I diastolic dysfunction, (abnormal relaxation pattern). There is trace mitral regurgitation. There was insufficient TR detected to calculate RV systolic pressure. No hemodynamically significant valvular aortic stenosis. Trace to mild pulmonic valvular regurgitation. Mild aortic root dilatation. There is no pericardial effusion. MD Austin Garcia 07/15/2018 02:41 PM
--- NOTE | 2018-07-15 16:30 | EKG ---
Test Reason : Blood Pressure : / mmHG Vent. Rate : 069 BPM Atrial Rate : 069 BPM P-R Int : 000 ms QRS Dur : 124 ms QT Int : 490 ms P-R-T Axes : 000 031 074 degrees QTc Int : 525 ms SINUS RHYTHM WITH PREMATURE ATRIAL COMPLEXES ANTEROSEPTAL INFARCT (CITED ON OR BEFORE 09-APR-2012) ABNORMAL ECG WHEN COMPARED WITH ECG OF 14-JUL-2018 16:38, NO SIGNIFICANT CHANGE WAS FOUND Confirmed by MD Radha, Austin ([id number]) on 07/15/2018 4:29:35 PM Referred By: Confirmed By:Austin Garcia MD
--- NOTE | 2018-07-15 17:30 | PN ---
Progress Note, Physician - Current Medication List Current Medications: Active Medications Acetaminophen (Tylenol -) 650 mg PO Q6H PRN PRN Reason: FEVER - Objective Vital Signs: Vital Signs Temperature 98.0 F 07/15/18 16:30 Pulse Rate 56 L 07/15/18 16:30 Respiratory Rate 16 07/15/18 16:30 Blood Pressure 124/54 L 07/15/18 16:30 O2 Sat by Pulse Oximetry (%) 98 07/15/18 16:30 Constitutional: Yes: No Distress HENT: Yes: Atraumatic Neck: Yes: Supple Cardiovascular: Yes: Regular Rate and Rhythm Respiratory: Yes: CTA Bilaterally Gastrointestinal: Yes: Normal Bowel Sounds Extremities: Yes: WNL Edema: No Peripheral Pulses WNL: Yes Neurological: Yes: Alert, Oriented Labs: CBC, BMP 07/15/18 07:10 07/15/18 07:10 INR, PTT INR 1.13 (0.83-1.09) H 07/14/18 18:00 Problem List - Problems (1) Pre-syncope Assessment/Plan: tele monitoring cardiac enzyme...negative echo cardiology consult Code(s): R55 - SYNCOPE AND COLLAPSE (2) UTI (urinary tract infection) Assessment/Plan: send ucx id consult to determine the need for abx Code(s): N39.0 - URINARY TRACT INFECTION, SITE NOT SPECIFIED Qualifiers: Urinary tract infection type: site unspecified Hematuria presence: without hematuria Qualified Code(s): N39.0 - Urinary tract infection, site not specified
[2018-07-15 18:41] VITALS: BMI 34.7
[2018-07-15] MEDS ORDERED: PNEUMOC 13-VAL CONJ-DIP CRM/PF 0.5 ML DISP.SYRIN IM ONE (19:00)
--- NOTE | 2018-07-15 20:53 | HOSP ---
Subjective - Review of Symptoms Events since last encounter: Called to see patient at 9 pm. Upon arrival patient on the ground and being held down by security. Per nurse patient was trying to leve AMA. Nurse called PCP who stated patient is not competent to leave. Ordered 2 mg Ativan, 25 IV benadryl, jovanni vest restraint and 1:1 watch. Physical Examination Vital Signs: Vital Signs Temperature 98.2 F 07/15/18 18:00 Pulse Rate 59 L 07/15/18 18:00 Respiratory Rate 20 07/15/18 18:00 Blood Pressure 140/74 07/15/18 18:00 O2 Sat by Pulse Oximetry (%) 98 07/15/18 19:00 Labs: CBC, BMP 07/15/18 07:10 07/15/18 07:10 Visit type - Emergency Visit Emergency Visit: No - New Patient This patient is new to me today: Yes Date on this admission: 07/20/18 - Critical Care Critical Care patient: No
[2018-07-15] MEDS ORDERED: LORazepam 2 MG/ML SDV VIAL IVPUSH ONE (21:00)
[2018-07-15] MEDS ORDERED: LORazepam 2 MG/ML SDV VIAL ONE (21:00)
[2018-07-15] MEDS ORDERED: cefTRIAXone SODIUM 1 GM VIAL ONE (23:13)
[2018-07-15] MEDS ORDERED: DEXTROSE 5%-WATER - 50 ML IVPB ONE (23:14)
[2018-07-15] MEDS: CEFTRIAXONE 1 GM in DEXTROSE 5%-WATER - 50 ML IVPB SCH (23:23)
[2018-07-16] MEDS ORDERED: CEFTRIAXONE 1 GM in DEXTROSE 5%-WATER - 50 ML IVPB SCH (10:00)
[2018-07-16] MEDS ORDERED: DEXTROSE 5%-WATER - 50 ML IVPB ONE (10:28)
[2018-07-16] MEDS ORDERED: cefTRIAXone SODIUM 1 GM VIAL ONE (10:28)
[2018-07-16] MEDS: CEFTRIAXONE 1 GM in DEXTROSE 5%-WATER - 50 ML IVPB SCH (10:37)
--- NOTE | 2018-07-16 12:48 | EKG ---
Test Reason : Blood Pressure : / mmHG Vent. Rate : 057 BPM Atrial Rate : 057 BPM P-R Int : 172 ms QRS Dur : 124 ms QT Int : 516 ms P-R-T Axes : 010 016 076 degrees QTc Int : 502 ms SINUS BRADYCARDIA WITH PREMATURE ATRIAL COMPLEXES ANTEROSEPTAL INFARCT (CITED ON OR BEFORE 09-APR-2012) ABNORMAL ECG WHEN COMPARED WITH ECG OF 09-APR-2012 10:23, PREMATURE ATRIAL COMPLEXES ARE NOW PRESENT QRS DURATION HAS INCREASED Confirmed by REECE CLAUDIO, SELINA ([id number]) on 07/16/2018 12:47:51 PM Referred By: Confirmed By:SELINA NEWELL MD
--- NOTE | 2018-07-16 13:15 | PN ---
Progress Note, Physician History of Present Illness: patient continues to be confused events noted from this morning according tot he staff patient is dribbling urine also smelling of urine - Current Medication List Current Medications: Active Medications Acetaminophen (Tylenol -) 650 mg PO Q6H PRN PRN Reason: FEVER Ceftriaxone Sodium 1 gm/ (Dextrose) 50 mls @ 100 mls/hr IVPB DAILY NAN; Protocol Last Admin: 07/16/18 10:37 Dose: 100 mls/hr - Objective Vital Signs: Vital Signs Temperature 98.4 F 07/16/18 10:00 Pulse Rate 57 L 07/16/18 10:00 Respiratory Rate 20 07/16/18 10:00 Blood Pressure 138/76 07/16/18 10:00 O2 Sat by Pulse Oximetry (%) 96 07/15/18 21:00 Constitutional: Yes: No Distress, Calm Cardiovascular: Yes: Regular Rate and Rhythm Respiratory: Yes: Regular, CTA Bilaterally Gastrointestinal: Yes: Normal Bowel Sounds, Soft Musculoskeletal: Yes: WNL Extremities: Yes: WNL Neurological: Yes: Confusion Psychiatric: Yes: Other Labs: CBC, BMP 07/15/18 07:10 07/15/18 07:10 INR, PTT INR 1.13 (0.83-1.09) H 07/14/18 18:00 Assessment/Plan Problem List - Problems (1) Pre-syncope Code(s): R55 - SYNCOPE AND COLLAPSE (2) UTI (urinary tract infection) Code(s): N39.0 - URINARY TRACT INFECTION, SITE NOT SPECIFIED Qualifiers: Urinary tract infection type: site unspecified Hematuria presence: without hematuria Qualified Code(s): N39.0 - Urinary tract infection, site not specified r/o urinary retention plan check for urinary retention might need urology to see the patient await for identification of the bacteria rest as per the team
--- NOTE | 2018-07-16 14:46 | PN ---
Progress Note, Physician - Current Medication List Current Medications: Active Medications Acetaminophen (Tylenol -) 650 mg PO Q6H PRN PRN Reason: FEVER Ceftriaxone Sodium 1 gm/ (Dextrose) 50 mls @ 100 mls/hr IVPB DAILY NAN; Protocol Last Admin: 07/16/18 10:37 Dose: 100 mls/hr - Objective Vital Signs: Vital Signs Temperature 98.4 F 07/16/18 10:00 Pulse Rate 57 L 07/16/18 10:00 Respiratory Rate 20 07/16/18 10:00 Blood Pressure 138/76 07/16/18 10:00 O2 Sat by Pulse Oximetry (%) 96 07/15/18 21:00 Constitutional: Yes: No Distress HENT: Yes: Atraumatic Neck: Yes: Supple Cardiovascular: Yes: Regular Rate and Rhythm Respiratory: Yes: CTA Bilaterally Gastrointestinal: Yes: Normal Bowel Sounds Extremities: Yes: WNL Edema: No Peripheral Pulses WNL: Yes Neurological: Yes: Alert, Oriented Labs: CBC, BMP 07/15/18 07:10 07/15/18 07:10 INR, PTT INR 1.13 (0.83-1.09) H 07/14/18 18:00 Problem List - Problems (1) Pre-syncope Assessment/Plan: tele monitoring cardiac enzyme...negative echo cardiology consult Code(s): R55 - SYNCOPE AND COLLAPSE (2) UTI (urinary tract infection) Assessment/Plan: send ucx id consult to determine the need for abx Code(s): N39.0 - URINARY TRACT INFECTION, SITE NOT SPECIFIED Qualifiers: Urinary tract infection type: site unspecified Hematuria presence: without hematuria Qualified Code(s): N39.0 - Urinary tract infection, site not specified
--- NOTE | 2018-07-16 16:11 | PN ---
Progress Note, Physician History of Present Illness: seen and examined today. events overnight noted, pt was reportedly agitated and had to be restrained. pt remembers the event denies being confused. no further dizziness, no chest pain, sob, palpitations. - Current Medication List Current Medications: Active Medications Acetaminophen (Tylenol -) 650 mg PO Q6H PRN PRN Reason: FEVER Ceftriaxone Sodium 1 gm/ (Dextrose) 50 mls @ 100 mls/hr IVPB DAILY NAN; Protocol Last Admin: 07/16/18 10:37 Dose: 100 mls/hr - Objective Vital Signs: Vital Signs Temperature 98.2 F 07/16/18 14:15 Pulse Rate 72 07/16/18 14:15 Respiratory Rate 20 07/16/18 14:15 Blood Pressure 147/63 07/16/18 14:15 O2 Sat by Pulse Oximetry (%) 96 07/15/18 21:00 Constitutional: Yes: No Distress, Calm Eyes: Yes: Conjunctiva Clear, EOM Intact HENT: Yes: Atraumatic, Normocephalic Neck: Yes: Supple, Trachea Midline Cardiovascular: Yes: Regular Rate and Rhythm, S1, S2. No: Bradycardia, Tachycardia, Pulse Irregular, Bruit, JVD, Gallop, Murmur, Rub, S3, S4, Varicosities Respiratory: Yes: Regular, CTA Bilaterally. No: Rales, Rhonchi, SOB, Wheezes Gastrointestinal: Yes: Normal Bowel Sounds, Soft. No: Distention, Tenderness Musculoskeletal: Yes: WNL Edema: No Peripheral Pulses WNL: Yes Neurological: Yes: Alert, Oriented Psychiatric: Yes: Alert, Oriented Labs: CBC, BMP 07/15/18 07:10 07/15/18 07:10 INR, PTT INR 1.13 (0.83-1.09) H 07/14/18 18:00 - ....Imaging Chest X-ray: Report Reviewed, Image Reviewed EKG: Report Reviewed, Image Reviewed Other: Report Reviewed, Image Reviewed (tele-nsr, mild sinus rebecca 55-60bpm, occasional junctional rhythm) Assessment/Plan Dizziness-uncertain etiology -possible vertigo possible TIA, possible confusion and agitation -[facility] Neurology evaluation -no significant arrhythmias overnight -avoid all AV lizett blockers -can dc tele -outpatient fup with fl -no additional inpatient cardiac work up needed at this time Please call with any additional questions.
--- NOTE | 2018-07-16 19:23 | CON.PSY ---
Psychiatry Consult Chief Complaint: 78n yearvold male admitted with AMS probably secondary to underlying medical conditions> patient apparantly became agitated last night and attempted to leave the Hospital.Appears some what angry that nothing is being done to help him. Claims he has been here since Saturday, appears somewhat confused. Symptoms: reports: Inability to Control Temper, Aggressivity, Impulsivity, Oppositionalism - Previous Psychiatric Treatment Outpatient: None Inpatient: None - Previous Substance Abuse Treatment Outpatient: None Inpatient: None - Current Medications Current Medications: Active Medications Acetaminophen (Tylenol -) 650 mg PO Q6H PRN PRN Reason: FEVER Ceftriaxone Sodium 1 gm/ (Dextrose) 50 mls @ 100 mls/hr IVPB DAILY NAN; Protocol Last Admin: 07/16/18 10:37 Dose: 100 mls/hr Olanzapine (Zyprexa -) 2.5 mg PO HS NAN - Allergies Allergies: Allergies Allergy/AdvReac Type Severity Reaction Status Date / Time No Known Drug Allergies Allergy Verified 07/14/18 16:28 ADHESIVE TAPE AdvReac Intermediate Uncoded 07/14/18 16:28 - Current Living Status Usual Living Arrangement: Alone - Current Mental Status Evaluation Appearance: Disheveled Attitude: Guarded - Affect Affect: Expansive Appropriateness: Not Appropriate - Mood Mood: Angry - Speech/Language Expressive: Coherent - Psychomotor Activity Psychomotor Activity: Slowed - Thought Process Thought Process: Circumstantial - Thought Content Hallucinations: Absent Delusions: Absent - Self Perception Self Perception: No Impairment - Cognition Attention: Alert Orientation: Time Memory, Immediate Recall: Intact Memory, Short Term: 2/3 Memory, Remote with Promptin/3 - Concentration Serial Sevens Intact: No Simple Calculations Intact: Yes - Abstraction Proverb Interpretation: Intact Judgement: Moderately Impaired - Insight Insight: Impaired - Impulse Control Impulse Control: Moderately Impaired - Suicidal Ideation Suicidal Ideation: No - Homicidal Ideation Homicidal Ideation: No Assessment/Plan 1) Zyprexa 2.5mg po hs for aggressive behaviour.
--- NOTE | 2018-07-16 20:44 | CON.NEURO ---
Consult Consult Specialty:: NEUROLOGY-MARIA A CLAUDIO - History of Present Illness History of Present Illness: 72-year-old man with the history of hypertension, hyperlipidemia, diabetes type II, coronary artery disease with four-vessel CABG in 1999, arrhythmia at that time which I believe was atrial flutter versus atrial fibrillation. He underwent two ablations in 2000, has not been on anticoagulation for some time due to hematuria from Bladder cancer, has been treated at [facility] [place] for his bladder cancer with remission, is still being treated, also peripheral artery disease with right lower extremity stents, Bradycardia when on bisoprolol with improvement after stopping it with no evidence of high degree heart block or symptomatic bradycardia on prior Holter monitors, now admitted with dizziness and unsteady gait. Pt has a history of vertigo and states these symptoms were similar but much worse. states that he developed sudden onset loud ringing in his left ear and when he stood up felt fullness in his head and severe dizziness , with "pressurte behind left eye, he walked down to his buildings lobby but was very unsteady and leaning to first the lkeft than right side- these neurologic symptoms lasted for 5 mns.. he then had the doorman call EMS. currently dizziness has resolved. .He reports that his symptoms have been intermittent since arriving to the ED and otherwise denies fevers, chills, SOB, chest pain, abdominal pain, numbness, tingling, focal weakness, or changes with urination or bowel movements.Last nightbecame agitated and somewhat aggressive- placed on Olanzapine prn. Being rx. for UTI. denies syncope. no chest pain or sob or palpitations. 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: Vertigo Cardio/Vascular: Yes: AFIB, HTN, Hyperlipdemia Renal/: Yes: Cancer Endocrine: Yes: Diabetes Mellitus - Past Surgical History Past Surgical History: Yes: CABG - Alcohol/Substance Use Hx Alcohol Use: No - Smoking History Smoking history: Never smoked Have you smoked in the past 12 months: No Aproximately how many cigarettes per day: 30 If you are a former smoker, when did you quit?: 03/26/12 - Social History Usual Living Arrangement: Alone ADL: Independent History of Recent Travel: No Home Medications - Allergies Allergies/Adverse Reactions: Allergies Allergy/AdvReac Type Severity Reaction Status Date / Time No Known Drug Allergies Allergy Verified 07/14/18 16:28 ADHESIVE TAPE AdvReac Intermediate Uncoded 07/14/18 16:28 - Home Medications Home Medications: Ambulatory Orders Aspirin [ASA -] 81 mg PO DAILY 07/15/18 Physical Exam-Neuro Vital Signs: Vital Signs Temperature 98.0 F 07/16/18 17:00 Pulse Rate 94 H 07/16/18 17:00 Respiratory Rate 18 07/16/18 17:00 Blood Pressure 129/62 07/16/18 17:00 O2 Sat by Pulse Oximetry (%) 97 07/16/18 09:00 Labs: CBC, BMP 07/15/18 07:10 07/15/18 07:10 INR, PTT INR 1.13 (0.83-1.09) H 07/14/18 18:00 - Neuro Exam Mini Mental Exam: Long winded, tangential and overinclusive speech. Concentration is mildly impaired as is attention. He is somewhat coarse in his conversation, appears to be impatient and has qualities of someone with a coarse , frontal lobe effected personality. 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 episode of sudden loud tinnitus, vertigo, unsteadiness of gait and o/e has mild l;eft dysmetriua. He has had subcortical cerebral ischemic events in the past. He is also encephalopathic likely due to infection Need to r/o vertebrobasilar territory ischemic event, less likely possibility GCA given left retroorbital pressure type pain. Plan: MRI/MRA brain ESR/CRP Further management after above Thank you, Dionna Rodriguez MD
[2018-07-16] MEDS ORDERED: OLANZapine 5 MG TABLET PO SCH (22:00)
--- NOTE | 2018-07-17 06:55 | RAPID ---
Physical Examination Vital Signs: Vital Signs Temperature 97.9 F 07/16/18 20:30 Pulse Rate 63 07/16/18 20:30 Respiratory Rate 20 07/16/18 20:30 Blood Pressure 148/71 07/16/18 20:30 O2 Sat by Pulse Oximetry (%) 96 07/16/18 21:00 Findings/Remarks: Rapid Response called for patient because he wanted to leave AMA. Patient answered questions appropriately to be A & O x 3, but continued to say some nonsensical sentences. Discussed with nursing staff to continue discussion with Dr. Cartwright and contact psych to determine if patient is competent to leave AMA. Awaiting callback from psychiatry. He was speaking in nonsensical manner occasionally, talking in circles and telling me that he gets confused at night. He thinks he saw people selling drugs upstairs and informs staff that he noted people filming a pornographic film, specifically, and he cannot elaborate on the circumstances. Due to this he has questionable competency, especially after being started on zyprexa and seeing psych, will keep here until cleared by psych as there is underlying concern for risk of harm to self at home. Labs: CBC, BMP 07/15/18 07:10 07/15/18 07:10
[2018-07-17] MEDS ORDERED: cefTRIAXone SODIUM 1 GM VIAL ONE (09:53)
[2018-07-17] MEDS ORDERED: DEXTROSE 5%-WATER - 50 ML IVPB ONE (09:53)
[2018-07-17] MEDS ORDERED: OLANZapine 5 MG TABLET PO SCH (10:00)
[2018-07-17] MEDS: CEFTRIAXONE 1 GM in DEXTROSE 5%-WATER - 50 ML IVPB SCH (10:05)
--- NOTE | 2018-07-17 10:39 | PN ---
Progress Note (short form) - Note Progress Note: Psych follow up; Patient became angry and belligerent and attempted to leave the Hospital. Told staff that there were 2 kids in the Room and appeared very confused. Alert, oriented to name only at this time, Very angry and Hostile, does not remember where he lives or refusing to tell me. easily angered and Paranoid and thretening.. Patient is an elopement risk. Poor impulse control;. Not allowing us to speak with any one. Plan: 1:1 2) increase Zyprexa 10mg po bid. 3) Patient lacks capacity to make any decisions at this time.
--- NOTE | 2018-07-17 13:22 | PN ---
Progress Note, Physician History of Present Illness: very confused wants to walk out 1 to 1 cx now showing esbl - Current Medication List Current Medications: Active Medications Acetaminophen (Tylenol -) 650 mg PO Q6H PRN PRN Reason: FEVER Meropenem 1 gm/ Dextrose 100 mls @ 200 mls/hr IVPB Q8H-IV NAN Lorazepam (Ativan Injection -) 2 mg IM Q8H PRN PRN Reason: ACUTE AGITATION Olanzapine (Zyprexa -) 10 mg PO BID NAN - Objective Vital Signs: Vital Signs Temperature 98.4 F 07/17/18 08:47 Pulse Rate 63 07/17/18 08:47 Respiratory Rate 20 07/17/18 08:47 Blood Pressure 143/76 07/17/18 08:47 O2 Sat by Pulse Oximetry (%) 96 07/16/18 21:00 Constitutional: Yes: No Distress, Calm Cardiovascular: Yes: Regular Rate and Rhythm Respiratory: Yes: Regular, CTA Bilaterally Gastrointestinal: Yes: Normal Bowel Sounds, Soft Extremities: Yes: WNL Neurological: Yes: Alert, Confusion Psychiatric: Yes: Other Labs: CBC, BMP 07/15/18 07:10 07/15/18 07:10 INR, PTT INR 1.13 (0.83-1.09) H 07/14/18 18:00 Assessment/Plan Problem List - Problems (1) Pre-syncope Code(s): R55 - SYNCOPE AND COLLAPSE (2) UTI (urinary tract infection) Code(s): N39.0 - URINARY TRACT INFECTION, SITE NOT SPECIFIED Qualifiers: Urinary tract infection type: site unspecified Hematuria presence: without hematuria Qualified Code(s): N39.0 - Urinary tract infection, site not specified r/o urinary retention plan will change abx to meropenam esbl will need it for 2 weeks monitor confusion rest as per the team
--- NOTE | 2018-07-17 14:33 | PN ---
Progress Note, Physician History of Present Illness: previous noted - Current Medication List Current Medications: Active Medications Acetaminophen (Tylenol -) 650 mg PO Q6H PRN PRN Reason: FEVER Meropenem 1 gm/ Dextrose 100 mls @ 200 mls/hr IVPB Q8H-IV NAN Lorazepam (Ativan Injection -) 2 mg IM Q8H PRN PRN Reason: ACUTE AGITATION Olanzapine (Zyprexa -) 10 mg PO BID NAN - Objective Vital Signs: Vital Signs Temperature 98.4 F 07/17/18 08:47 Pulse Rate 63 07/17/18 08:47 Respiratory Rate 20 07/17/18 08:47 Blood Pressure 143/76 07/17/18 08:47 O2 Sat by Pulse Oximetry (%) 96 07/16/18 21:00 Constitutional: Yes: Anxious HENT: Yes: Atraumatic Neck: Yes: Supple Cardiovascular: Yes: Regular Rate and Rhythm Respiratory: Yes: CTA Bilaterally Gastrointestinal: Yes: Normal Bowel Sounds Extremities: Yes: WNL Neurological: Yes: Alert, Oriented Labs: CBC, BMP 07/15/18 07:10 07/15/18 07:10 INR, PTT INR 1.13 (0.83-1.09) H 07/14/18 18:00 Problem List - Problems (1) Pre-syncope Assessment/Plan: tele monitoring cardiac enzyme...negative echo cardiology consult Code(s): R55 - SYNCOPE AND COLLAPSE (2) UTI (urinary tract infection) Assessment/Plan: on iv abx Code(s): N39.0 - URINARY TRACT INFECTION, SITE NOT SPECIFIED Qualifiers: Urinary tract infection type: site unspecified Hematuria presence: without hematuria Qualified Code(s): N39.0 - Urinary tract infection, site not specified
[2018-07-17] MEDS ORDERED: PT OWN MED DRAWER 7, Y5N ONE ×2 (14:59→21:24)
[2018-07-17] MEDS: MEROPENEM 1 GM in DEXTROSE 5%-WATER 100 ML IVPB SCH ×2 (15:02→17:25)
--- NOTE | 2018-07-17 16:16 | PN ---
Progress Note (short form) - Note Progress Note: Events of last night noted. Awaits MRI brain, and while calm now, confused, and MRI may be difficult. UTI may be contributing to confusion. MRI to r/o brainstem ischemia. Will f/u withyou
[2018-07-17] MEDS: LORazepam 2 MG/ML SDV VIAL IM PRN (21:43)
[2018-07-17] MEDS: OLANZapine 10 MG TABLET PO SCH (21:43)
[2018-07-18] MEDS ORDERED: PT OWN MED DRAWER 7, Y5N ONE ×2 (03:03→21:16)
[2018-07-18] MEDS: MEROPENEM 1 GM in DEXTROSE 5%-WATER 100 ML IVPB SCH ×3 (03:15→17:58)
--- NOTE | 2018-07-18 09:45 | PN ---
Progress Note (short form) - Note Progress Note: stinori becomes angry aggressive and attempting to leave [address]. Many attempts usually at night. Still very disorganized. Plan;Continue with 1:1. 2) continue with [facility] psych Meds.
--- NOTE | 2018-07-18 11:37 | PN ---
Progress Note, Physician History of Present Illness: clinically stable confusion and uncooperative - Current Medication List Current Medications: Active Medications Acetaminophen (Tylenol -) 650 mg PO Q6H PRN PRN Reason: FEVER Meropenem 1 gm/ Dextrose 100 mls @ 200 mls/hr IVPB Q8H-IV NAN Last Admin: 07/18/18 03:15 Dose: 200 mls/hr Lorazepam (Ativan Injection -) 2 mg IM Q8H PRN PRN Reason: ACUTE AGITATION Last Admin: 07/17/18 21:43 Dose: 2 mg Olanzapine (Zyprexa -) 10 mg PO BID NAN Last Admin: 07/17/18 21:43 Dose: 10 mg - Objective Vital Signs: Vital Signs Temperature 97.5 F L 07/18/18 06:41 Pulse Rate 62 07/18/18 06:41 Respiratory Rate 20 07/18/18 06:41 Blood Pressure 166/89 07/18/18 06:41 O2 Sat by Pulse Oximetry (%) 94 L 07/17/18 21:00 Constitutional: Yes: No Distress, Anxious Cardiovascular: Yes: S1, S2 Respiratory: Yes: Regular, CTA Bilaterally Gastrointestinal: Yes: Normal Bowel Sounds, Soft Musculoskeletal: Yes: WNL Extremities: Yes: WNL Neurological: Yes: Alert, Other Psychiatric: Yes: Other Labs: CBC, BMP 07/15/18 07:10 07/15/18 07:10 INR, PTT INR 1.13 (0.83-1.09) H 07/14/18 18:00 Assessment/Plan Problem List - Problems (1) Pre-syncope Code(s): R55 - SYNCOPE AND COLLAPSE (2) UTI (urinary tract infection) Code(s): N39.0 - URINARY TRACT INFECTION, SITE NOT SPECIFIED Qualifiers: Urinary tract infection type: site unspecified Hematuria presence: without hematuria Qualified Code(s): N39.0 - Urinary tract infection, site not specified r/o urinary retention plan continue abx will need it for 2 weeks rest as per the team psych
[2018-07-18] MEDS: OLANZapine 10 MG TABLET PO SCH ×2 (12:40→21:27)
--- NOTE | 2018-07-18 14:40 | PN ---
Progress Note (short form) - Note Progress Note: Much calmer today and is calm and pleasant now. Little insight. He denies current dizziness. No nystagmus. Awaits MRI. Apparently held up by Questionnaire not being filled out but now is complete.
--- NOTE | 2018-07-18 18:34 | PN ---
Progress Note, Physician - Current Medication List Current Medications: Active Medications Acetaminophen (Tylenol -) 650 mg PO Q6H PRN PRN Reason: FEVER Meropenem 1 gm/ Dextrose 100 mls @ 200 mls/hr IVPB Q8H-IV NAN Last Admin: 07/18/18 17:58 Dose: 200 mls/hr Lorazepam (Ativan Injection -) 2 mg IM Q8H PRN PRN Reason: ACUTE AGITATION Last Admin: 07/17/18 21:43 Dose: 2 mg Olanzapine (Zyprexa -) 10 mg PO BID NAN Last Admin: 07/18/18 12:40 Dose: 10 mg - Objective Vital Signs: Vital Signs Temperature 97.3 F L 07/18/18 15:23 Pulse Rate 62 07/18/18 06:41 Respiratory Rate 20 07/18/18 15:23 Blood Pressure 136/69 07/18/18 15:23 O2 Sat by Pulse Oximetry (%) 94 L 07/18/18 09:00 Constitutional: Yes: No Distress HENT: Yes: Atraumatic Neck: Yes: Supple Cardiovascular: Yes: Regular Rate and Rhythm Respiratory: Yes: CTA Bilaterally Gastrointestinal: Yes: Normal Bowel Sounds Extremities: Yes: WNL Edema: No Peripheral Pulses WNL: Yes Neurological: Yes: Alert, Oriented Labs: CBC, BMP 07/15/18 07:10 07/15/18 07:10 INR, PTT INR 1.13 (0.83-1.09) H 07/14/18 18:00 Problem List - Problems (1) Pre-syncope Assessment/Plan: doing well Code(s): R55 - SYNCOPE AND COLLAPSE (2) UTI (urinary tract infection) Assessment/Plan: ucx...noted on iv abx Code(s): N39.0 - URINARY TRACT INFECTION, SITE NOT SPECIFIED Qualifiers: Urinary tract infection type: site unspecified Hematuria presence: without hematuria Qualified Code(s): N39.0 - Urinary tract infection, site not specified
[2018-07-19] MEDS: MEROPENEM 1 GM in DEXTROSE 5%-WATER 100 ML IVPB SCH ×3 (01:03→17:38)
[2018-07-19] MEDS: LORazepam 2 MG/ML SDV VIAL IM PRN ×2 (06:04→15:49)
[2018-07-19] MEDS: OLANZapine 10 MG TABLET PO SCH ×2 (10:01→22:48)
--- NOTE | 2018-07-19 11:40 | PN ---
Progress Note (short form) - Note Progress Note: Calm and pleasant now. Little insight. He denies current dizziness. No nystagmus. Awaits MRI. Will continue to f/u with you.
--- NOTE | 2018-07-19 11:59 | PN ---
Progress Note, Physician History of Present Illness: stable on 1 to 1 - Current Medication List Current Medications: Active Medications Acetaminophen (Tylenol -) 650 mg PO Q6H PRN PRN Reason: FEVER Meropenem 1 gm/ Dextrose 100 mls @ 200 mls/hr IVPB Q8H-IV NAN Last Admin: 07/19/18 10:00 Dose: 200 mls/hr Lorazepam (Ativan Injection -) 2 mg IM Q8H PRN PRN Reason: ACUTE AGITATION Last Admin: 07/19/18 06:04 Dose: 2 mg Olanzapine (Zyprexa -) 10 mg PO BID NAN Last Admin: 07/19/18 10:01 Dose: 10 mg - Objective Vital Signs: Vital Signs Temperature 97.5 F L 07/19/18 10:00 Pulse Rate 56 L 07/19/18 10:00 Respiratory Rate 20 07/19/18 10:00 Blood Pressure 128/81 07/19/18 10:00 O2 Sat by Pulse Oximetry (%) 98 07/19/18 09:00 Constitutional: Yes: Calm HENT: Yes: Atraumatic Neck: Yes: Supple Cardiovascular: Yes: Regular Rate and Rhythm Respiratory: Yes: CTA Bilaterally Gastrointestinal: Yes: Normal Bowel Sounds Extremities: Yes: WNL Edema: No Peripheral Pulses WNL: Yes Neurological: Yes: Alert, Oriented Labs: CBC, BMP 07/15/18 07:10 07/15/18 07:10 INR, PTT INR 1.13 (0.83-1.09) H 07/14/18 18:00 Problem List - Problems (1) Pre-syncope Assessment/Plan: doing well Code(s): R55 - SYNCOPE AND COLLAPSE (2) UTI (urinary tract infection) Assessment/Plan: ucx...noted on iv abx still confused but sometimes is clear in thinking Code(s): N39.0 - URINARY TRACT INFECTION, SITE NOT SPECIFIED Qualifiers: Urinary tract infection type: site unspecified Hematuria presence: without hematuria Qualified Code(s): N39.0 - Urinary tract infection, site not specified
--- NOTE | 2018-07-19 14:28 | PN ---
Progress Note, Physician History of Present Illness: continues to be confused no other issues - Current Medication List Current Medications: Active Medications Acetaminophen (Tylenol -) 650 mg PO Q6H PRN PRN Reason: FEVER Meropenem 1 gm/ Dextrose 100 mls @ 200 mls/hr IVPB Q8H-IV NAN Last Admin: 07/19/18 10:00 Dose: 200 mls/hr Lorazepam (Ativan Injection -) 2 mg IM Q8H PRN PRN Reason: ACUTE AGITATION Last Admin: 07/19/18 06:04 Dose: 2 mg Olanzapine (Zyprexa -) 10 mg PO BID NAN Last Admin: 07/19/18 10:01 Dose: 10 mg - Objective Vital Signs: Vital Signs Temperature 97.5 F L 07/19/18 10:00 Pulse Rate 56 L 07/19/18 10:00 Respiratory Rate 20 07/19/18 10:00 Blood Pressure 128/81 07/19/18 10:00 O2 Sat by Pulse Oximetry (%) 98 07/19/18 09:00 Constitutional: Yes: No Distress, Calm, Other Cardiovascular: Yes: Regular Rate and Rhythm Respiratory: Yes: Regular, CTA Bilaterally Gastrointestinal: Yes: Normal Bowel Sounds, Soft Musculoskeletal: Yes: WNL Extremities: Yes: WNL Neurological: Yes: Confusion Psychiatric: Yes: Alert, Other Labs: CBC, BMP 07/15/18 07:10 07/15/18 07:10 INR, PTT INR 1.13 (0.83-1.09) H 07/14/18 18:00 Assessment/Plan Problem List - Problems (1) Pre-syncope Code(s): R55 - SYNCOPE AND COLLAPSE (2) UTI (urinary tract infection) Code(s): N39.0 - URINARY TRACT INFECTION, SITE NOT SPECIFIED Qualifiers: Urinary tract infection type: site unspecified Hematuria presence: without hematuria Qualified Code(s): N39.0 - Urinary tract infection, site not specified r/o urinary retention plan continue current mgmt ct abx rest as per the team
[2018-07-19] MEDS ORDERED: PT OWN MED DRAWER 7, Y5N ONE ×2 (17:22→21:37)
[2018-07-20] MEDS ORDERED: PT OWN MED DRAWER 7, Y5N ONE ×5 (02:33→20:52)
[2018-07-20] MEDS: MEROPENEM 1 GM in DEXTROSE 5%-WATER 100 ML IVPB SCH ×3 (02:35→17:14)
[2018-07-20] MEDS: OLANZapine 10 MG TABLET PO SCH ×3 (10:00→21:05)
--- NOTE | 2018-07-20 11:01 | PN ---
Progress Note (short form) - Note Progress Note: Calm and pleasant but confused. Little insight. He denies current dizziness. No nystagmus. Awaits MRI. Will continue to f/u with you. Dr. Rodriguez to assume consult service tomorrow.
--- NOTE | 2018-07-20 11:45 | PN ---
Progress Note, Physician History of Present Illness: stable on 1 to 1 - Current Medication List Current Medications: Active Medications Acetaminophen (Tylenol -) 650 mg PO Q6H PRN PRN Reason: FEVER Meropenem 1 gm/ Dextrose 100 mls @ 200 mls/hr IVPB Q8H-IV NAN Last Admin: 07/20/18 10:06 Dose: 200 mls/hr Olanzapine (Zyprexa -) 10 mg PO BID NAN Last Admin: 07/20/18 10:06 Dose: 10 mg - Objective Vital Signs: Vital Signs Temperature 97.4 F L 07/19/18 14:00 Pulse Rate 73 07/20/18 06:00 Respiratory Rate 18 07/20/18 06:00 Blood Pressure 155/83 07/20/18 06:00 O2 Sat by Pulse Oximetry (%) 96 07/19/18 21:00 Constitutional: Yes: Calm HENT: Yes: Atraumatic Neck: Yes: Supple Cardiovascular: Yes: Regular Rate and Rhythm Respiratory: Yes: CTA Bilaterally Gastrointestinal: Yes: Normal Bowel Sounds Extremities: Yes: WNL Edema: No Peripheral Pulses WNL: Yes Neurological: Yes: Alert, Oriented Labs: CBC, BMP 07/15/18 07:10 07/15/18 07:10 INR, PTT INR 1.13 (0.83-1.09) H 07/14/18 18:00 Problem List - Problems (1) Pre-syncope Assessment/Plan: doing well neurology on board Code(s): R55 - SYNCOPE AND COLLAPSE (2) UTI (urinary tract infection) Assessment/Plan: ucx...noted on iv abx confused on and off Code(s): N39.0 - URINARY TRACT INFECTION, SITE NOT SPECIFIED Qualifiers: Urinary tract infection type: site unspecified Hematuria presence: without hematuria Qualified Code(s): N39.0 - Urinary tract infection, site not specified
--- NOTE | 2018-07-20 13:50 | PN ---
Progress Note, Physician History of Present Illness: continues to be confused aggressive clinically otherwise stable - Current Medication List Current Medications: Active Medications Acetaminophen (Tylenol -) 650 mg PO Q6H PRN PRN Reason: FEVER Meropenem 1 gm/ Dextrose 100 mls @ 200 mls/hr IVPB Q8H-IV NAN Last Admin: 07/20/18 10:06 Dose: 200 mls/hr Olanzapine (Zyprexa -) 10 mg PO BID NAN Last Admin: 07/20/18 10:06 Dose: 10 mg - Objective Vital Signs: Vital Signs Temperature 97.5 F L 07/20/18 10:00 Pulse Rate 64 07/20/18 10:00 Respiratory Rate 20 07/20/18 10:00 Blood Pressure 144/62 07/20/18 10:00 O2 Sat by Pulse Oximetry (%) 96 07/20/18 09:00 Constitutional: Yes: Anxious, Other Cardiovascular: Yes: Regular Rate and Rhythm Respiratory: Yes: Regular, CTA Bilaterally Gastrointestinal: Yes: Normal Bowel Sounds, Soft Extremities: Yes: WNL Neurological: Yes: Alert, Confusion, Other Labs: CBC, BMP 07/15/18 07:10 07/15/18 07:10 INR, PTT INR 1.13 (0.83-1.09) H 07/14/18 18:00 Assessment/Plan Problem List - Problems (1) Pre-syncope Code(s): R55 - SYNCOPE AND COLLAPSE (2) UTI (urinary tract infection) Code(s): N39.0 - URINARY TRACT INFECTION, SITE NOT SPECIFIED Qualifiers: Urinary tract infection type: site unspecified Hematuria presence: without hematuria Qualified Code(s): N39.0 - Urinary tract infection, site not specified r/o urinary retention plan continue abx will have to make a decision on further mgmt from psych point patient to complete abx nutrition rest as per the team
[2018-07-20] MEDS ORDERED: LORazepam 2 MG/ML SDV VIAL ONE (23:57)
[2018-07-21] MEDS: LORazepam 2 MG/ML SDV VIAL IM PRN ×2 (00:03→00:12)
[2018-07-21] MEDS: MEROPENEM 1 GM in DEXTROSE 5%-WATER 100 ML IVPB SCH ×3 (01:01→17:22)
[2018-07-21] MEDS ORDERED: PT OWN MED DRAWER 7, Y5N ONE ×7 (09:28→23:06)
[2018-07-21] MEDS: OLANZapine 10 MG TABLET PO SCH ×2 (09:38→22:47)
--- NOTE | 2018-07-21 12:21 | PN ---
Progress Note, Physician History of Present Illness: continues to be confused no other problems anxious wants to get out - Current Medication List Current Medications: Active Medications Acetaminophen (Tylenol -) 650 mg PO Q6H PRN PRN Reason: FEVER Meropenem 1 gm/ Dextrose 100 mls @ 200 mls/hr IVPB Q8H-IV NAN Last Admin: 07/21/18 09:38 Dose: 200 mls/hr Lorazepam (Ativan Injection -) 1 mg IVPUSH Q8H PRN PRN Reason: AGITATION Olanzapine (Zyprexa -) 10 mg PO BID NAN Last Admin: 07/21/18 09:38 Dose: 10 mg - Objective Vital Signs: Vital Signs Temperature 97.6 F 07/21/18 09:50 Pulse Rate 65 07/21/18 09:50 Respiratory Rate 20 07/21/18 09:50 Blood Pressure 145/84 07/21/18 09:50 O2 Sat by Pulse Oximetry (%) 96 07/21/18 09:00 Constitutional: Yes: Anxious Cardiovascular: Yes: S1, S2 Respiratory: Yes: Regular, CTA Bilaterally Gastrointestinal: Yes: Normal Bowel Sounds, Soft Neurological: Yes: Alert, Confusion, Other Psychiatric: Yes: Other Labs: CBC, BMP 07/15/18 07:10 07/15/18 07:10 INR, PTT INR 1.13 (0.83-1.09) H 07/14/18 18:00 Assessment/Plan Problem List - Problems (1) Pre-syncope Code(s): R55 - SYNCOPE AND COLLAPSE (2) UTI (urinary tract infection) Code(s): N39.0 - URINARY TRACT INFECTION, SITE NOT SPECIFIED Qualifiers: Urinary tract infection type: site unspecified Hematuria presence: without hematuria Qualified Code(s): N39.0 - Urinary tract infection, site not specified r/o urinary retention plan continue abx will have to make a decision on further mgmt from psych point patient to complete abx nutrition rest as per the team
--- NOTE | 2018-07-21 13:28 | PN ---
Progress Note (short form) - Note Progress Note: Patient has been rewsoponding to meds. No major brhavioral problems. 1) D/C 1;1 2) Constant supervision for safety.
--- NOTE | 2018-07-21 17:32 | PN ---
Progress Note, Physician History of Present Illness: stable on 1 to 1 - Current Medication List Current Medications: Active Medications Acetaminophen (Tylenol -) 650 mg PO Q6H PRN PRN Reason: FEVER Meropenem 1 gm/ Dextrose 100 mls @ 200 mls/hr IVPB Q8H-IV NAN Last Admin: 07/21/18 17:22 Dose: 200 mls/hr Lorazepam (Ativan Injection -) 1 mg IVPUSH Q8H PRN PRN Reason: AGITATION Olanzapine (Zyprexa -) 10 mg PO BID NAN Last Admin: 07/21/18 09:38 Dose: 10 mg - Objective Vital Signs: Vital Signs Temperature 98.3 F 07/21/18 17:12 Pulse Rate 59 L 07/21/18 17:12 Respiratory Rate 20 07/21/18 17:12 Blood Pressure 146/69 07/21/18 17:12 O2 Sat by Pulse Oximetry (%) 96 07/21/18 09:00 Constitutional: Yes: No Distress HENT: Yes: Atraumatic Neck: Yes: Supple Cardiovascular: Yes: Regular Rate and Rhythm Respiratory: Yes: CTA Bilaterally Gastrointestinal: Yes: Normal Bowel Sounds Extremities: Yes: WNL Neurological: Yes: Alert Labs: CBC, BMP 07/15/18 07:10 07/15/18 07:10 INR, PTT INR 1.13 (0.83-1.09) H 07/14/18 18:00 Problem List - Problems (1) Pre-syncope Code(s): R55 - SYNCOPE AND COLLAPSE (2) UTI (urinary tract infection) Assessment/Plan: on abx Code(s): N39.0 - URINARY TRACT INFECTION, SITE NOT SPECIFIED Qualifiers: Urinary tract infection type: site unspecified Hematuria presence: without hematuria Qualified Code(s): N39.0 - Urinary tract infection, site not specified Assessment/Plan spoke to his sister who came to visit her she said this is a chenge in him he was never this confuse he lives alone she talks to him twice a week and see him once a month he has no or kids he is the only brother
--- NOTE | 2018-07-21 22:08 | PN ---
Progress Note (short form) - Note Progress Note: NEUROLOGY-F/U-MARIA A CLAUDIO Pt. remains agitated at times, is confused, disoriented, inattentive, appears internally preoccupied.Being rx. for infection but encephalopathy should have been improving by now. Would obtain MRI brain-to r/o structural causes of current mental state.
[2018-07-22] MEDS ORDERED: PT OWN MED DRAWER 7, Y5N ONE ×5 (00:49→22:24)
[2018-07-22] MEDS: MEROPENEM 1 GM in DEXTROSE 5%-WATER 100 ML IVPB SCH ×3 (01:13→17:19)
[2018-07-22] MEDS: LORazepam 2 MG/ML SDV VIAL IVPUSH PRN (01:14)
[2018-07-22] MEDS: OLANZapine 10 MG TABLET PO SCH ×2 (09:58→22:19)
--- NOTE | 2018-07-22 12:00 | PN ---
Progress Note, Physician History of Present Illness: continues to be confused awake calm has 1 to 1 - Current Medication List Current Medications: Active Medications Acetaminophen (Tylenol -) 650 mg PO Q6H PRN PRN Reason: FEVER Meropenem 1 gm/ Dextrose 100 mls @ 200 mls/hr IVPB Q8H-IV NAN Last Admin: 07/22/18 09:58 Dose: 200 mls/hr Lorazepam (Ativan Injection -) 1 mg IVPUSH Q8H PRN PRN Reason: AGITATION Last Admin: 07/22/18 01:14 Dose: 1 mg Olanzapine (Zyprexa -) 10 mg PO BID NAN Last Admin: 07/22/18 09:58 Dose: 10 mg - Objective Vital Signs: Vital Signs Temperature 99.3 F 07/22/18 05:00 Pulse Rate 66 07/22/18 05:00 Respiratory Rate 20 07/22/18 05:00 Blood Pressure 145/79 07/22/18 05:00 O2 Sat by Pulse Oximetry (%) 96 07/21/18 21:00 Constitutional: Yes: No Distress, Calm Cardiovascular: Yes: S1, S2 Respiratory: Yes: Regular, CTA Bilaterally Gastrointestinal: Yes: Normal Bowel Sounds, Soft Musculoskeletal: Yes: WNL Extremities: Yes: WNL Neurological: Yes: Alert, Confusion Psychiatric: Yes: Other Labs: CBC, BMP 07/15/18 07:10 07/15/18 07:10 INR, PTT INR 1.13 (0.83-1.09) H 07/14/18 18:00 Assessment/Plan Problem List - Problems (1) Pre-syncope Code(s): R55 - SYNCOPE AND COLLAPSE (2) UTI (urinary tract infection) Code(s): N39.0 - URINARY TRACT INFECTION, SITE NOT SPECIFIED Qualifiers: Urinary tract infection type: site unspecified Hematuria presence: without hematuria Qualified Code(s): N39.0 - Urinary tract infection, site not specified r/o urinary retention plan continue current mgmt ct abx rest as per the team patient to complete 2 weeks of abx
--- NOTE | 2018-07-22 16:21 | PN ---
Progress Note, Physician - Current Medication List Current Medications: Active Medications Acetaminophen (Tylenol -) 650 mg PO Q6H PRN PRN Reason: FEVER Meropenem 1 gm/ Dextrose 100 mls @ 200 mls/hr IVPB Q8H-IV NAN Last Admin: 07/22/18 09:58 Dose: 200 mls/hr Lorazepam (Ativan Injection -) 1 mg IVPUSH Q8H PRN PRN Reason: AGITATION Last Admin: 07/22/18 01:14 Dose: 1 mg Olanzapine (Zyprexa -) 10 mg PO BID NAN Last Admin: 07/22/18 09:58 Dose: 10 mg - Objective Vital Signs: Vital Signs Temperature 98.0 F 07/22/18 15:19 Pulse Rate 84 07/22/18 15:19 Respiratory Rate 16 07/22/18 15:19 Blood Pressure 130/70 07/22/18 15:19 O2 Sat by Pulse Oximetry (%) 96 07/21/18 21:00 Constitutional: Yes: No Distress HENT: Yes: Atraumatic Neck: Yes: Supple Cardiovascular: Yes: Regular Rate and Rhythm Respiratory: Yes: CTA Bilaterally Gastrointestinal: Yes: Normal Bowel Sounds Extremities: Yes: WNL Edema: No Peripheral Pulses WNL: Yes Neurological: Yes: Alert Labs: CBC, BMP 07/15/18 07:10 07/15/18 07:10 INR, PTT INR 1.13 (0.83-1.09) H 07/14/18 18:00 Problem List - Problems (1) Pre-syncope Assessment/Plan: resolved Code(s): R55 - SYNCOPE AND COLLAPSE (2) UTI (urinary tract infection) Assessment/Plan: on abx Code(s): N39.0 - URINARY TRACT INFECTION, SITE NOT SPECIFIED Qualifiers: Urinary tract infection type: site unspecified Hematuria presence: without hematuria Qualified Code(s): N39.0 - Urinary tract infection, site not specified
[2018-07-23] MEDS: LORazepam 2 MG/ML SDV VIAL IVPUSH PRN ×2 (00:14→16:53)
[2018-07-23] MEDS: MEROPENEM 1 GM in DEXTROSE 5%-WATER 100 ML IVPB SCH ×3 (01:09→18:06)
[2018-07-23] MEDS ORDERED: PT OWN MED DRAWER 7, Y5N ONE ×3 (01:27→20:23)
[2018-07-23] MEDS: OLANZapine 10 MG TABLET PO SCH ×2 (10:03→21:08)
--- NOTE | 2018-07-23 10:30 | PN ---
Progress Note, Physician History of Present Illness: patient stable no new issues - Current Medication List Current Medications: Active Medications Acetaminophen (Tylenol -) 650 mg PO Q6H PRN PRN Reason: FEVER Meropenem 1 gm/ Dextrose 100 mls @ 200 mls/hr IVPB Q8H-IV NAN Last Admin: 07/23/18 10:03 Dose: 200 mls/hr Lorazepam (Ativan Injection -) 1 mg IVPUSH Q8H PRN PRN Reason: AGITATION Last Admin: 07/23/18 00:14 Dose: 1 mg Olanzapine (Zyprexa -) 10 mg PO BID NAN Last Admin: 07/23/18 10:03 Dose: 10 mg - Objective Vital Signs: Vital Signs Temperature 97.5 F L 07/23/18 06:00 Pulse Rate 69 07/23/18 06:00 Respiratory Rate 20 07/23/18 06:00 Blood Pressure 129/72 07/23/18 06:00 O2 Sat by Pulse Oximetry (%) 96 07/22/18 20:49 Constitutional: Yes: No Distress, Calm Neck: Yes: Supple, Trachea Midline Respiratory: Yes: Regular, CTA Bilaterally Gastrointestinal: Yes: Normal Bowel Sounds, Soft Musculoskeletal: Yes: WNL Extremities: Yes: WNL Neurological: Yes: Alert, Confusion Psychiatric: Yes: Other Labs: CBC, BMP 07/15/18 07:10 07/15/18 07:10 INR, PTT INR 1.13 (0.83-1.09) H 07/14/18 18:00 Assessment/Plan Problem List - Problems (1) Pre-syncope Code(s): R55 - SYNCOPE AND COLLAPSE (2) UTI (urinary tract infection) Code(s): N39.0 - URINARY TRACT INFECTION, SITE NOT SPECIFIED Qualifiers: Urinary tract infection type: site unspecified Hematuria presence: without hematuria Qualified Code(s): N39.0 - Urinary tract infection, site not specified r/o urinary retention plan continue current mgmt ct abx rest as per the team patient to complete 2 weeks of abx
--- NOTE | 2018-07-23 16:57 | PN ---
Progress Note, Physician - Current Medication List Current Medications: Active Medications Acetaminophen (Tylenol -) 650 mg PO Q6H PRN PRN Reason: FEVER Meropenem 1 gm/ Dextrose 100 mls @ 200 mls/hr IVPB Q8H-IV NAN Last Admin: 07/23/18 10:03 Dose: 200 mls/hr Lorazepam (Ativan Injection -) 1 mg IVPUSH Q8H PRN PRN Reason: AGITATION Last Admin: 07/23/18 16:53 Dose: 1 mg Olanzapine (Zyprexa -) 10 mg PO BID NAN Last Admin: 07/23/18 10:03 Dose: 10 mg - Objective Vital Signs: Vital Signs Temperature 98.0 F 07/23/18 15:49 Pulse Rate 80 07/23/18 15:49 Respiratory Rate 16 07/23/18 15:49 Blood Pressure 138/80 07/23/18 15:49 O2 Sat by Pulse Oximetry (%) 96 07/22/18 20:49 Constitutional: Yes: No Distress HENT: Yes: Atraumatic Neck: Yes: Supple Cardiovascular: Yes: Regular Rate and Rhythm Respiratory: Yes: CTA Bilaterally Gastrointestinal: Yes: Normal Bowel Sounds Edema: Yes Peripheral Pulses WNL: No Neurological: Yes: Alert, Oriented Labs: CBC, BMP 07/15/18 07:10 07/15/18 07:10 INR, PTT INR 1.13 (0.83-1.09) H 07/14/18 18:00 Problem List - Problems (1) Pre-syncope Code(s): R55 - SYNCOPE AND COLLAPSE (2) UTI (urinary tract infection) Assessment/Plan: send ucx id consult to determine the need for abx Code(s): N39.0 - URINARY TRACT INFECTION, SITE NOT SPECIFIED Qualifiers: Urinary tract infection type: site unspecified Hematuria presence: without hematuria Qualified Code(s): N39.0 - Urinary tract infection, site not specified
--- NOTE | 2018-07-23 17:19 | PN ---
Progress Note (short form) - Note Progress Note: Psych follow up; Patient seen for Psych , spoke to Patients sister who trerports no previous sych Illness. No nsubstance abuse erither. 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 MS: Still angry, impulsive , confused and aggressive. Very poor impulse4 control. Insightv and judgement Impaired. Plan 1) Continue with 1:1 supervision for safety. @) Continue with Zyprexa 10m g po bid for Psychosis.
[2018-07-24] MEDS: MEROPENEM 1 GM in DEXTROSE 5%-WATER 100 ML IVPB SCH ×3 (01:35→17:56)
[2018-07-24] MEDS ORDERED: PT OWN MED DRAWER 7, Y5N ONE ×2 (11:01→17:44)
[2018-07-24] MEDS: OLANZapine 10 MG TABLET PO SCH ×2 (13:26→21:13)
--- NOTE | 2018-07-24 14:03 | PN ---
Progress Note, Physician History of Present Illness: confused stable - Current Medication List Current Medications: Active Medications Acetaminophen (Tylenol -) 650 mg PO Q6H PRN PRN Reason: FEVER Meropenem 1 gm/ Dextrose 100 mls @ 200 mls/hr IVPB Q8H-IV NAN Last Admin: 07/24/18 11:13 Dose: 200 mls/hr Olanzapine (Zyprexa -) 10 mg PO BID NAN Last Admin: 07/24/18 13:26 Dose: 10 mg - Objective Vital Signs: Vital Signs Temperature 98.6 F 07/24/18 11:14 Pulse Rate 80 07/24/18 11:14 Respiratory Rate 18 07/24/18 11:14 Blood Pressure 144/70 07/24/18 11:14 O2 Sat by Pulse Oximetry (%) 96 07/23/18 21:00 Constitutional: Yes: No Distress, Calm Cardiovascular: Yes: S1, S2 Respiratory: Yes: Regular, CTA Bilaterally Gastrointestinal: Yes: Normal Bowel Sounds, Soft Musculoskeletal: Yes: WNL Extremities: Yes: WNL Labs: CBC, BMP 07/15/18 07:10 07/15/18 07:10 INR, PTT INR 1.13 (0.83-1.09) H 07/14/18 18:00 Assessment/Plan Problem List - Problems (1) Pre-syncope Code(s): R55 - SYNCOPE AND COLLAPSE (2) UTI (urinary tract infection) Code(s): N39.0 - URINARY TRACT INFECTION, SITE NOT SPECIFIED Qualifiers: Urinary tract infection type: site unspecified Hematuria presence: without hematuria Qualified Code(s): N39.0 - Urinary tract infection, site not specified r/o urinary retention plan continue current mgmt ct abx rest as per the team patient to complete another 6 days of abx
--- NOTE | 2018-07-24 16:01 | PN ---
Progress Note, Physician History of Present Illness: continued to be confuse stable - Current Medication List Current Medications: Active Medications Acetaminophen (Tylenol -) 650 mg PO Q6H PRN PRN Reason: FEVER Meropenem 1 gm/ Dextrose 100 mls @ 200 mls/hr IVPB Q8H-IV NAN Last Admin: 07/24/18 11:13 Dose: 200 mls/hr Olanzapine (Zyprexa -) 10 mg PO BID NAN Last Admin: 07/24/18 13:26 Dose: 10 mg - Objective Vital Signs: Vital Signs Temperature 98.6 F 07/24/18 15:36 Pulse Rate 78 07/24/18 15:36 Respiratory Rate 19 07/24/18 15:36 Blood Pressure 141/67 07/24/18 15:36 O2 Sat by Pulse Oximetry (%) 96 07/23/18 21:00 Constitutional: Yes: Calm HENT: Yes: Atraumatic Neck: Yes: Supple Cardiovascular: Yes: Regular Rate and Rhythm Respiratory: Yes: CTA Bilaterally Gastrointestinal: Yes: Normal Bowel Sounds Extremities: Yes: WNL Neurological: Yes: Alert Labs: CBC, BMP 07/15/18 07:10 07/15/18 07:10 INR, PTT INR 1.13 (0.83-1.09) H 07/14/18 18:00 Problem List - Problems (1) Pre-syncope Assessment/Plan: resolved Code(s): R55 - SYNCOPE AND COLLAPSE (2) UTI (urinary tract infection) Assessment/Plan: on abx cxs noted id on board Code(s): N39.0 - URINARY TRACT INFECTION, SITE NOT SPECIFIED Qualifiers: Urinary tract infection type: site unspecified Hematuria presence: without hematuria Qualified Code(s): N39.0 - Urinary tract infection, site not specified (3) Mental confusion Assessment/Plan: neuro on board all notes and reports reviewed Code(s): R41.0 - DISORIENTATION, UNSPECIFIED
[2018-07-25] MEDS: MEROPENEM 1 GM in DEXTROSE 5%-WATER 100 ML IVPB SCH ×3 (01:58→17:37)
[2018-07-25] MEDS ORDERED: PT OWN MED DRAWER 7, Y5N ONE ×4 (08:54→20:54)
[2018-07-25] MEDS: OLANZapine 10 MG TABLET PO SCH ×2 (09:10→21:21)
--- NOTE | 2018-07-25 09:16 | PN ---
Progress Note, Physician History of Present Illness: continues to be confused stable - Current Medication List Current Medications: Active Medications Acetaminophen (Tylenol -) 650 mg PO Q6H PRN PRN Reason: FEVER Meropenem 1 gm/ Dextrose 100 mls @ 200 mls/hr IVPB Q8H-IV NAN Last Admin: 07/25/18 09:09 Dose: 200 mls/hr Olanzapine (Zyprexa -) 10 mg PO BID NAN Last Admin: 07/25/18 09:10 Dose: 10 mg - Objective Vital Signs: Vital Signs Temperature 98.2 F 07/25/18 07:15 Pulse Rate 66 07/25/18 07:15 Respiratory Rate 20 07/25/18 07:15 Blood Pressure 105/58 L 07/25/18 07:15 O2 Sat by Pulse Oximetry (%) 96 07/24/18 20:30 Constitutional: Yes: Calm, Other Cardiovascular: Yes: S1, S2 Respiratory: Yes: Regular, CTA Bilaterally Gastrointestinal: Yes: Normal Bowel Sounds, Soft Musculoskeletal: Yes: WNL Extremities: Yes: WNL Neurological: Yes: Confusion Labs: CBC, BMP 07/15/18 07:10 07/15/18 07:10 INR, PTT INR 1.13 (0.83-1.09) H 07/14/18 18:00 Assessment/Plan Problem List - Problems (1) Pre-syncope Code(s): R55 - SYNCOPE AND COLLAPSE (2) UTI (urinary tract infection) Code(s): N39.0 - URINARY TRACT INFECTION, SITE NOT SPECIFIED Qualifiers: Urinary tract infection type: site unspecified Hematuria presence: without hematuria Qualified Code(s): N39.0 - Urinary tract infection, site not specified r/o urinary retention plan continue current mgmt ct abx rest as per the team complete the course
--- NOTE | 2018-07-25 19:11 | PN ---
Progress Note, Physician History of Present Illness: continued to be confuse - Current Medication List Current Medications: Active Medications Acetaminophen (Tylenol -) 650 mg PO Q6H PRN PRN Reason: FEVER Meropenem 1 gm/ Dextrose 100 mls @ 200 mls/hr IVPB Q8H-IV NAN Last Admin: 07/25/18 17:37 Dose: 200 mls/hr Olanzapine (Zyprexa -) 10 mg PO BID NAN Last Admin: 07/25/18 09:10 Dose: 10 mg - Objective Vital Signs: Vital Signs Temperature 97.2 F L 07/25/18 17:03 Pulse Rate 80 07/25/18 17:03 Respiratory Rate 18 07/25/18 17:03 Blood Pressure 161/94 07/25/18 17:03 O2 Sat by Pulse Oximetry (%) 96 07/24/18 20:30 Constitutional: Yes: No Distress HENT: Yes: Atraumatic Neck: Yes: Supple Cardiovascular: Yes: Regular Rate and Rhythm Respiratory: Yes: CTA Bilaterally Gastrointestinal: Yes: Normal Bowel Sounds Extremities: Yes: WNL Edema: No Neurological: Yes: Alert, Oriented Labs: CBC, BMP 07/15/18 07:10 07/15/18 07:10 INR, PTT INR 1.13 (0.83-1.09) H 07/14/18 18:00 Problem List - Problems (1) Pre-syncope Assessment/Plan: resolved Code(s): R55 - SYNCOPE AND COLLAPSE (2) UTI (urinary tract infection) Assessment/Plan: on abx cxs noted Code(s): N39.0 - URINARY TRACT INFECTION, SITE NOT SPECIFIED Qualifiers: Urinary tract infection type: site unspecified Hematuria presence: without hematuria Qualified Code(s): N39.0 - Urinary tract infection, site not specified (3) Mental confusion Code(s): R41.0 - DISORIENTATION, UNSPECIFIED
[2018-07-26] MEDS: MEROPENEM 1 GM in DEXTROSE 5%-WATER 100 ML IVPB SCH ×3 (02:00→18:10)
--- NOTE | 2018-07-26 07:57 | PN ---
Progress Note, Physician History of Present Illness: this AM, confused, though follows commands, MRI BRAIN REVIEWED IMPRESSION: A 0.4 cm acute periventricular white matter infarct is seen abutting the lateral border of the occipital/temporal segment of the left lateral ventricle. Chronic left basal ganglia infarct. Chronic right posterior frontal subcortical white matter infarct. Mild to moderate periventricular and subcortical chronic microvascular ischemic changes. - Current Medication List Current Medications: Active Medications Acetaminophen (Tylenol -) 650 mg PO Q6H PRN PRN Reason: FEVER Meropenem 1 gm/ Dextrose 100 mls @ 200 mls/hr IVPB Q8H-IV NAN Last Admin: 07/26/18 02:00 Dose: 200 mls/hr Olanzapine (Zyprexa -) 10 mg PO BID NAN Last Admin: 07/25/18 21:21 Dose: 10 mg - Objective Vital Signs: Vital Signs Temperature 99.7 F H 07/26/18 05:31 Pulse Rate 76 07/26/18 05:31 Respiratory Rate 20 07/26/18 05:31 Blood Pressure 154/86 07/26/18 05:31 O2 Sat by Pulse Oximetry (%) 94 L 07/25/18 21:00 Labs: CBC, BMP 07/15/18 07:10 07/15/18 07:10 INR, PTT INR 1.13 (0.83-1.09) H 07/14/18 18:00 Problem List - Problems (1) Encephalopathy Code(s): G93.40 - ENCEPHALOPATHY, UNSPECIFIED (2) CVA (cerebral vascular accident) Code(s): I63.9 - CEREBRAL INFARCTION, UNSPECIFIED (3) UTI (urinary tract infection) Code(s): N39.0 - URINARY TRACT INFECTION, SITE NOT SPECIFIED Qualifiers: Urinary tract infection type: site unspecified Hematuria presence: without hematuria Qualified Code(s): N39.0 - Urinary tract infection, site not specified Assessment/Plan confused delirium --this is likely form UTI, very tiny infract on MRI-would not explain MS ASA, statin, holter and ECHO ( ensure not septic emboli) ABX for UTI/ID FU check TSH, B12 DR PAEZ
[2018-07-26 08:22] LABS: BASO % 0.4 % (0-2.0); EOS % 0.2 % (0-4.5); HEMATOCRIT 51.3 % (35.4-49); HEMOGLOBIN 16.6 GM/dL (11.7-16.9); LYMPH % 12.4 % (8-40); MCH 28.1 pg (25.7-33.7); MCHC 32.4 g/dl (32.0-35.9); MEAN CELL VOLUME 86.5 fl (80-96); MEAN PLT VOLUME 9.7 fl (7.5-11.1); MONO % 9.4 % (3.8-10.2); NEUT % 77.6 % (42.8-82.8); PLATELET COUNT 159 K/MM3 (134-434); RBC 5.93 M/mm3 (4.00-5.60); RDW 14.3 % (11.9-15.9); WHITE BLOOD COUNT 8.4 K/mm3 (4.0-10.0)
[2018-07-26] MEDS ORDERED: PT OWN MED DRAWER 7, Y5N ONE ×2 (08:54→10:25)
[2018-07-26 09:11] LABS: ALBUMIN 3.4 g/dl (3.4-5.0); ALK PHOS 84 U/L (45-117); ANION GAP 11 MMOL/L (8-16); BILIRUBIN,TOTAL 0.7 mg/dL (0.2-1); BLOOD UREA NITROGEN 46 mg/dL (7-18); CALCIUM 9.2 mg/dL (8.5-10.1); CHLORIDE 108 mmol/L (98-107); CO2 24 mmol/L (21-32); CREATININE 1.2 mg/dL (0.55-1.3); GLUCOSE,RANDOM 107 mg/dL (74-106); SGOT/AST 32 U/L (15-37); SGPT/ALT 32 U/L (13-61); SODIUM 143 mmol/L (136-145); TOT PROT 7.5 g/dl (6.4-8.2)
[2018-07-26] MEDS: OLANZapine 10 MG TABLET PO SCH ×2 (10:26→22:04)
--- NOTE | 2018-07-26 15:40 | PN ---
Progress Note, Physician History of Present Illness: Pt is alert, responding appropriately. Denies having urinary complaints. Has no other specific complaints. Tmax 100.2F, currently afebrile. - Current Medication List Current Medications: Active Medications Acetaminophen (Tylenol -) 650 mg PO Q6H PRN PRN Reason: FEVER Meropenem 1 gm/ Dextrose 100 mls @ 200 mls/hr IVPB Q8H-IV NAN Last Admin: 07/26/18 10:23 Dose: 200 mls/hr Olanzapine (Zyprexa -) 10 mg PO BID NAN Last Admin: 07/26/18 10:26 Dose: 10 mg - Objective Vital Signs: Vital Signs Temperature 98.3 F 07/26/18 15:29 Pulse Rate 81 07/26/18 15:29 Respiratory Rate 18 07/26/18 15:29 Blood Pressure 141/77 07/26/18 15:29 O2 Sat by Pulse Oximetry (%) 94 L 07/25/18 21:00 Constitutional: Yes: No Distress, Calm Cardiovascular: Yes: Regular Rate and Rhythm Respiratory: Yes: CTA Bilaterally Gastrointestinal: Yes: Normal Bowel Sounds, Soft, Abdomen, Obese Genitourinary: Yes: WNL Neurological: Yes: Alert Labs: CBC, BMP 07/26/18 06:15 07/26/18 06:15 INR, PTT INR 1.13 (0.83-1.09) H 07/14/18 18:00 Problem List - Problems (1) Pre-syncope Code(s): R55 - SYNCOPE AND COLLAPSE (2) UTI (urinary tract infection) Code(s): N39.0 - URINARY TRACT INFECTION, SITE NOT SPECIFIED Qualifiers: Urinary tract infection type: site unspecified Hematuria presence: without hematuria Qualified Code(s): N39.0 - Urinary tract infection, site not specified Assessment/Plan ESBL + E. coli UTI Presyncope DM CAD HLD HTN -- Pt with low grade fever last night, monitor temps for now -- cont. Meropenem x 4 more days -- appears stable at this time
--- NOTE | 2018-07-26 16:30 | PN ---
Progress Note, Physician History of Present Illness: continued to be confuse - Current Medication List Current Medications: Active Medications Acetaminophen (Tylenol -) 650 mg PO Q6H PRN PRN Reason: FEVER Meropenem 1 gm/ Dextrose 100 mls @ 200 mls/hr IVPB Q8H-IV NAN Last Admin: 07/26/18 10:23 Dose: 200 mls/hr Olanzapine (Zyprexa -) 10 mg PO BID NAN Last Admin: 07/26/18 10:26 Dose: 10 mg - Objective Vital Signs: Vital Signs Temperature 98.3 F 07/26/18 15:29 Pulse Rate 81 07/26/18 15:29 Respiratory Rate 18 07/26/18 15:29 Blood Pressure 141/77 07/26/18 15:29 O2 Sat by Pulse Oximetry (%) 94 L 07/25/18 21:00 Constitutional: Yes: No Distress HENT: Yes: Atraumatic Neck: Yes: Supple Respiratory: Yes: CTA Bilaterally Gastrointestinal: Yes: Normal Bowel Sounds Extremities: Yes: WNL Edema: No Peripheral Pulses WNL: Yes Neurological: Yes: Alert, Oriented Labs: CBC, BMP 07/26/18 06:15 07/26/18 06:15 INR, PTT INR 1.13 (0.83-1.09) H 07/14/18 18:00 Problem List - Problems (1) Pre-syncope Code(s): R55 - SYNCOPE AND COLLAPSE (2) UTI (urinary tract infection) Assessment/Plan: on abx cxs noted id to determine how many more days of abx Code(s): N39.0 - URINARY TRACT INFECTION, SITE NOT SPECIFIED Qualifiers: Urinary tract infection type: site unspecified Hematuria presence: without hematuria Qualified Code(s): N39.0 - Urinary tract infection, site not specified (3) Mental confusion Code(s): R41.0 - DISORIENTATION, UNSPECIFIED
[2018-07-27] MEDS: MEROPENEM 1 GM in DEXTROSE 5%-WATER 100 ML IVPB SCH ×3 (01:37→17:58)
[2018-07-27] MEDS: OLANZapine 10 MG TABLET PO SCH ×2 (09:06→21:18)
--- NOTE | 2018-07-27 11:49 | PN ---
Progress Note, Physician History of Present Illness: patient stable confused - Current Medication List Current Medications: Active Medications Acetaminophen (Tylenol -) 650 mg PO Q6H PRN PRN Reason: FEVER Meropenem 1 gm/ Dextrose 100 mls @ 200 mls/hr IVPB Q8H-IV NAN Last Admin: 07/27/18 09:09 Dose: 200 mls/hr Olanzapine (Zyprexa -) 10 mg PO BID NAN Last Admin: 07/27/18 09:06 Dose: 10 mg - Objective Vital Signs: Vital Signs Temperature 97.8 F 07/27/18 06:00 Pulse Rate 66 07/27/18 06:00 Respiratory Rate 20 07/27/18 06:00 Blood Pressure 152/92 07/27/18 06:00 O2 Sat by Pulse Oximetry (%) 94 L 07/25/18 21:00 Constitutional: Yes: No Distress, Calm Cardiovascular: Yes: Regular Rate and Rhythm Respiratory: Yes: Regular, CTA Bilaterally Gastrointestinal: Yes: Normal Bowel Sounds, Soft Musculoskeletal: Yes: WNL Extremities: Yes: WNL Neurological: Yes: Alert, Confusion Psychiatric: Yes: Alert Labs: CBC, BMP 07/26/18 06:15 07/26/18 06:15 INR, PTT INR 1.13 (0.83-1.09) H 07/14/18 18:00 Assessment/Plan Problem List - Problems (1) Pre-syncope Code(s): R55 - SYNCOPE AND COLLAPSE (2) UTI (urinary tract infection) Code(s): N39.0 - URINARY TRACT INFECTION, SITE NOT SPECIFIED Qualifiers: Urinary tract infection type: site unspecified Hematuria presence: without hematuria Qualified Code(s): N39.0 - Urinary tract infection, site not specified r/o urinary retention plan continue current mgmt ct abx rest as per the team complete the course
[2018-07-27] MEDS ORDERED: PT OWN MED DRAWER 7, Y5N ONE (17:55)
--- NOTE | 2018-07-27 19:56 | PN ---
Progress Note, Physician History of Present Illness: continued to be confuse stable - Current Medication List Current Medications: Active Medications Acetaminophen (Tylenol -) 650 mg PO Q6H PRN PRN Reason: FEVER Meropenem 1 gm/ Dextrose 100 mls @ 200 mls/hr IVPB Q8H-IV NAN Last Admin: 07/27/18 17:58 Dose: 200 mls/hr Olanzapine (Zyprexa -) 10 mg PO BID NAN Last Admin: 07/27/18 09:06 Dose: 10 mg - Objective Vital Signs: Vital Signs Temperature 98.6 F 07/27/18 14:48 Pulse Rate 67 07/27/18 14:48 Respiratory Rate 18 07/27/18 14:48 Blood Pressure 140/78 07/27/18 14:48 O2 Sat by Pulse Oximetry (%) 94 L 07/25/18 21:00 Constitutional: Yes: No Distress HENT: Yes: Atraumatic Neck: Yes: Supple Cardiovascular: Yes: Regular Rate and Rhythm Respiratory: Yes: CTA Bilaterally Gastrointestinal: Yes: Normal Bowel Sounds Extremities: Yes: WNL Edema: No Peripheral Pulses WNL: Yes Neurological: Yes: Alert Labs: CBC, BMP 07/26/18 06:15 07/26/18 06:15 INR, PTT INR 1.13 (0.83-1.09) H 07/14/18 18:00 Problem List - Problems (1) Pre-syncope Code(s): R55 - SYNCOPE AND COLLAPSE (2) UTI (urinary tract infection) Assessment/Plan: on abx cxs noted id on board need to know how long to be on abx dc planning Code(s): N39.0 - URINARY TRACT INFECTION, SITE NOT SPECIFIED Qualifiers: Urinary tract infection type: site unspecified Hematuria presence: without hematuria Qualified Code(s): N39.0 - Urinary tract infection, site not specified (3) Mental confusion Assessment/Plan: neuro on board all notes and reports reviewed Code(s): R41.0 - DISORIENTATION, UNSPECIFIED
[2018-07-27] MEDS ORDERED: NYSTATIN 100,000 UNIT/GM TOPICAL CREAM 15 GM TUBE TP SCH (20:00)
[2018-07-27] MEDS: NYSTATIN 100,000 UNIT/GM TOPICAL CREAM 15 GM TUBE TP SCH (21:50)
[2018-07-28] MEDS: MEROPENEM 1 GM in DEXTROSE 5%-WATER 100 ML IVPB SCH ×3 (01:47→17:20)
--- NOTE | 2018-07-28 08:59 | PN ---
Progress Note, Physician History of Present Illness: patient calm no gross events over night stable remaining afebrile - Current Medication List Current Medications: Active Medications Acetaminophen (Tylenol -) 650 mg PO Q6H PRN PRN Reason: FEVER Meropenem 1 gm/ Dextrose 100 mls @ 200 mls/hr IVPB Q8H-IV NAN Last Admin: 07/28/18 01:47 Dose: 200 mls/hr Nystatin (Mycostatin Cream -) 1 applic TP BID [facility] Last Admin: 07/27/18 21:50 Dose: 1 applic Olanzapine (Zyprexa -) 10 mg PO BID [facility] Last Admin: 07/27/18 21:18 Dose: 10 mg - Objective Vital Signs: Vital Signs Temperature 97.7 F 07/28/18 06:00 Pulse Rate 67 07/28/18 06:00 Respiratory Rate 20 07/28/18 06:00 Blood Pressure 156/74 07/28/18 06:00 O2 Sat by Pulse Oximetry (%) 94 L 07/25/18 21:00 Constitutional: Yes: No Distress, Calm Cardiovascular: Yes: S1, S2 Gastrointestinal: Yes: Normal Bowel Sounds, Soft Musculoskeletal: Yes: WNL Extremities: Yes: WNL Neurological: Yes: Alert, Other Psychiatric: Yes: Other Labs: CBC, BMP 07/26/18 06:15 07/26/18 06:15 INR, PTT INR 1.13 (0.83-1.09) H 07/14/18 18:00 Assessment/Plan Problem List - Problems (1) Pre-syncope Code(s): R55 - SYNCOPE AND COLLAPSE (2) UTI (urinary tract infection) Code(s): N39.0 - URINARY TRACT INFECTION, SITE NOT SPECIFIED Qualifiers: Urinary tract infection type: site unspecified Hematuria presence: without hematuria Qualified Code(s): N39.0 - Urinary tract infection, site not specified r/o urinary retention patient extremely confused,talking well plan continue abx 2 more days of abx rest as per the team neuro and psych
[2018-07-28] MEDS ORDERED: PT OWN MED DRAWER 7, Y5N ONE ×2 (11:25→17:08)
[2018-07-28] MEDS: OLANZapine 10 MG TABLET PO SCH ×2 (11:33→22:51)
[2018-07-28] MEDS: NYSTATIN 100,000 UNIT/GM TOPICAL CREAM 15 GM TUBE TP SCH ×2 (11:49→22:51)
--- NOTE | 2018-07-28 18:46 | PN ---
Progress Note, Physician History of Present Illness: continued to be confuse stable - Current Medication List Current Medications: Active Medications Acetaminophen (Tylenol -) 650 mg PO Q6H PRN PRN Reason: FEVER Meropenem 1 gm/ Dextrose 100 mls @ 200 mls/hr IVPB Q8H-IV NAN Last Admin: 07/28/18 17:20 Dose: 200 mls/hr Nystatin (Mycostatin Cream -) 1 applic TP BID NAN Last Admin: 07/28/18 11:49 Dose: 1 applic Olanzapine (Zyprexa -) 10 mg PO BID [facility] Last Admin: 07/28/18 11:33 Dose: 10 mg - Objective Vital Signs: Vital Signs Temperature 97.5 F L 07/28/18 16:30 Pulse Rate 72 07/28/18 16:30 Respiratory Rate 18 07/28/18 16:30 Blood Pressure 148/94 07/28/18 16:30 O2 Sat by Pulse Oximetry (%) 94 L 07/25/18 21:00 Constitutional: Yes: No Distress HENT: Yes: Atraumatic Neck: Yes: Supple Cardiovascular: Yes: Regular Rate and Rhythm Respiratory: Yes: Rhonchi Gastrointestinal: Yes: Normal Bowel Sounds Extremities: Yes: WNL Edema: No Peripheral Pulses WNL: Yes Neurological: Yes: Alert, Oriented Labs: CBC, BMP 07/26/18 06:15 07/26/18 06:15 INR, PTT INR 1.13 (0.83-1.09) H 07/14/18 18:00 Problem List - Problems (1) Pre-syncope Assessment/Plan: resolved Code(s): R55 - SYNCOPE AND COLLAPSE (2) UTI (urinary tract infection) Assessment/Plan: on abx cxs noted id on board 2 more days of abx dc planning Code(s): N39.0 - URINARY TRACT INFECTION, SITE NOT SPECIFIED Qualifiers: Urinary tract infection type: site unspecified Hematuria presence: without hematuria Qualified Code(s): N39.0 - Urinary tract infection, site not specified (3) Mental confusion Assessment/Plan: neuro on board all notes and reports reviewed Code(s): R41.0 - DISORIENTATION, UNSPECIFIED
[2018-07-28] MEDS: ATORVASTATIN CA 10 MG TABLET (FP) PO SCH (22:51)
[2018-07-29] MEDS ORDERED: PT OWN MED DRAWER 7, Y5N ONE ×3 (01:46→21:58)
[2018-07-29] MEDS: MEROPENEM 1 GM in DEXTROSE 5%-WATER 100 ML IVPB SCH ×3 (02:12→18:16)
[2018-07-29] MEDS: OLANZapine 10 MG TABLET PO SCH ×2 (11:00→22:09)
[2018-07-29] MEDS: NYSTATIN 100,000 UNIT/GM TOPICAL CREAM 15 GM TUBE TP SCH (11:01)
--- NOTE | 2018-07-29 11:35 | PN ---
Progress Note, Physician History of Present Illness: patient still continues to be confused no other issues - Current Medication List Current Medications: Active Medications Acetaminophen (Tylenol -) 650 mg PO Q6H PRN PRN Reason: FEVER Atorvastatin Calcium (Lipitor -) 10 mg PO HS [facility] Last Admin: 07/28/18 22:51 Dose: 10 mg Meropenem 1 gm/ Dextrose 100 mls @ 200 mls/hr IVPB Q8H-IV NAN Last Admin: 07/29/18 11:01 Dose: 200 mls/hr Olanzapine (Zyprexa -) 10 mg PO BID [facility] Last Admin: 07/29/18 11:00 Dose: 10 mg - Objective Vital Signs: Vital Signs Temperature 97.7 F 07/29/18 07:13 Pulse Rate 72 07/29/18 07:13 Respiratory Rate 20 07/29/18 07:13 Blood Pressure 142/85 07/29/18 07:13 O2 Sat by Pulse Oximetry (%) 93 L 07/28/18 21:00 Constitutional: Yes: No Distress, Calm Cardiovascular: Yes: Regular Rate and Rhythm Respiratory: Yes: Regular, CTA Bilaterally Gastrointestinal: Yes: Normal Bowel Sounds, Soft Musculoskeletal: Yes: WNL Extremities: Yes: WNL Neurological: Yes: Alert, Confusion Psychiatric: Yes: Other Labs: CBC, BMP 07/26/18 06:15 07/26/18 06:15 INR, PTT INR 1.13 (0.83-1.09) H 07/14/18 18:00 Assessment/Plan Problem List - Problems (1) Pre-syncope Code(s): R55 - SYNCOPE AND COLLAPSE (2) UTI (urinary tract infection) Code(s): N39.0 - URINARY TRACT INFECTION, SITE NOT SPECIFIED Qualifiers: Urinary tract infection type: site unspecified Hematuria presence: without hematuria Qualified Code(s): N39.0 - Urinary tract infection, site not specified r/o urinary retention patient extremely confused,talking well plan continue abx 2 more days of abx rest as per the team neuro and psych
--- NOTE | 2018-07-29 11:55 | PN ---
Progress Note (short form) - Note Progress Note: Psych follow up; Patient still mconfused and unable to do anything on his own. PLan: TRansfer vto SNF for REhab.
[2018-07-29] MEDS ORDERED: NYSTATIN 100,000 UNIT/GM TOPICAL CREAM 15 GM TUBE TP PRN (12:05)
[2018-07-29] MEDS ORDERED: NYSTATIN POWDER 100,000 UNITS/GM - 15 GM TOPICAL POWDER TP PRN (12:07)
--- NOTE | 2018-07-29 17:58 | PN ---
Progress Note, Physician History of Present Illness: continued to be confuse stable - Current Medication List Current Medications: Active Medications Acetaminophen (Tylenol -) 650 mg PO Q6H PRN PRN Reason: FEVER Atorvastatin Calcium (Lipitor -) 10 mg PO HS [facility] Last Admin: 07/28/18 22:51 Dose: 10 mg Meropenem 1 gm/ Dextrose 100 mls @ 200 mls/hr IVPB Q8H-IV NAN Last Admin: 07/29/18 11:01 Dose: 200 mls/hr Nystatin (Nystop Powder -) 1 applic TP Q12H PRN PRN Reason: PERINEAL AREA Olanzapine (Zyprexa -) 10 mg PO BID NAN Last Admin: 07/29/18 11:00 Dose: 10 mg - Objective Vital Signs: Vital Signs Temperature 97.9 F 07/29/18 15:02 Pulse Rate 77 07/29/18 15:02 Respiratory Rate 18 07/29/18 15:02 Blood Pressure 156/79 07/29/18 15:02 O2 Sat by Pulse Oximetry (%) 93 L 07/29/18 09:00 Constitutional: Yes: No Distress HENT: Yes: Atraumatic Neck: Yes: Supple Cardiovascular: Yes: Regular Rate and Rhythm Respiratory: Yes: CTA Bilaterally Gastrointestinal: Yes: Normal Bowel Sounds Extremities: Yes: WNL Edema: No Peripheral Pulses WNL: Yes Neurological: Yes: Alert, Oriented Labs: CBC, BMP 07/26/18 06:15 07/26/18 06:15 INR, PTT INR 1.13 (0.83-1.09) H 07/14/18 18:00 Problem List - Problems (1) Pre-syncope Assessment/Plan: resolved Code(s): R55 - SYNCOPE AND COLLAPSE (2) UTI (urinary tract infection) Assessment/Plan: on abx cxs noted id on board 1 more days of abx...TOMORROW dc planning Code(s): N39.0 - URINARY TRACT INFECTION, SITE NOT SPECIFIED Qualifiers: Urinary tract infection type: site unspecified Hematuria presence: without hematuria Qualified Code(s): N39.0 - Urinary tract infection, site not specified (3) Mental confusion Assessment/Plan: neuro on board all notes and reports reviewed could be due to new stroke vs infection Code(s): R41.0 - DISORIENTATION, UNSPECIFIED
[2018-07-29] MEDS: ATORVASTATIN CA 10 MG TABLET (FP) PO SCH (22:09)
[2018-07-30] MEDS ORDERED: PT OWN MED DRAWER 7, Y5N ONE ×3 (01:20→22:07)
[2018-07-30] MEDS: MEROPENEM 1 GM in DEXTROSE 5%-WATER 100 ML IVPB SCH ×2 (01:42→10:23)
[2018-07-30 08:16] LABS: BASO % 0.6 % (0-2.0); EOS % 3.4 % (0-4.5); HEMOGLOBIN 16.2 GM/dL (11.7-16.9); LYMPH % 21.5 % (8-40); MCH 28.1 pg (25.7-33.7); MCHC 32.4 g/dl (32.0-35.9); MEAN CELL VOLUME 86.9 fl (80-96); MEAN PLT VOLUME 9.5 fl (7.5-11.1); MONO % 6.9 % (3.8-10.2); NEUT % 67.6 % (42.8-82.8); PLATELET COUNT 160 K/MM3 (134-434); RBC 5.75 M/mm3 (4.00-5.60); RDW 14.2 % (11.9-15.9); WHITE BLOOD COUNT 7.2 K/mm3 (4.0-10.0)
[2018-07-30 08:45] LABS: ALBUMIN 3.1 g/dl (3.4-5.0); ALK PHOS 87 U/L (45-117); ANION GAP 7 MMOL/L (8-16); BILIRUBIN,TOTAL 0.7 mg/dL (0.2-1); BLOOD UREA NITROGEN 52 mg/dL (7-18); CALCIUM 9.2 mg/dL (8.5-10.1); CHLORIDE 118 mmol/L (98-107); CO2 27 mmol/L (21-32); CREATININE 1.2 mg/dL (0.55-1.3); GLUCOSE,RANDOM 101 mg/dL (74-106); SGOT/AST 32 U/L (15-37); SGPT/ALT 36 U/L (13-61); SODIUM 151 mmol/L (136-145); TOT PROT 7.4 g/dl (6.4-8.2)
[2018-07-30] MEDS: OLANZapine 10 MG TABLET PO SCH ×2 (10:23→22:15)
--- NOTE | 2018-07-30 11:17 | PN ---
Progress Note (short form) - Note Progress Note: being treated for UTI, prolonged delirium, NA 151, elevated BUN TSH and b12 NL MRI BRAIN REVIEWED IMPRESSION: A 0.4 cm acute periventricular white matter infarct is seen abutting the lateral border of the occipital/temporal segment of the left lateral ventricle. Chronic left basal ganglia infarct. Chronic right posterior frontal subcortical white matter infarct. Mild to moderate periventricular and subcortical chronic microvascular ischemic changes. ECHO WNL - Current Medication List Current Medications: Active Medications Acetaminophen (Tylenol -) 650 mg PO Q6H PRN PRN Reason: FEVER Meropenem 1 gm/ Dextrose 100 mls @ 200 mls/hr IVPB Q8H-IV NAN Last Admin: 07/26/18 02:00 Dose: 200 mls/hr Olanzapine (Zyprexa -) 10 mg PO BID NAN Last Admin: 07/25/18 21:21 Dose: 10 mg - Objective Vital Signs: Vital Signs Temperature 97.3 F L 07/30/18 06:46 Pulse Rate 65 07/30/18 06:46 Respiratory Rate 20 07/30/18 06:46 Blood Pressure 143/92 07/30/18 06:46 O2 Sat by Pulse Oximetry (%) 93 L 07/29/18 21:00 Labs: CBCD WBC 7.2 K/mm3 (4.0-10.0) 07/30/18 06:30 RBC 5.75 M/mm3 (4.00-5.60) H 07/30/18 06:30 Hgb 16.2 GM/dL (11.7-16.9) 07/30/18 06:30 Hct 50.0 % (35.4-49) H 07/30/18 06:30 MCV 86.9 fl (80-96) 07/30/18 06:30 MCHC 32.4 g/dl (32.0-35.9) 07/30/18 06:30 RDW 14.2 % (11.9-15.9) 07/30/18 06:30 Plt Count 160 K/MM3 (134-434) 07/30/18 06:30 MPV 9.5 fl (7.5-11.1) 07/30/18 06:30 CMP Sodium 151 mmol/L (136-145) H 07/30/18 06:30 Potassium 4.0 mmol/L (3.5-5.1) 07/30/18 06:30 Chloride 118 mmol/L (98-107) H 07/30/18 06:30 Carbon Dioxide 27 mmol/L (21-32) 07/30/18 06:30 Anion Gap 7 MMOL/L (8-16) L 07/30/18 06:30 BUN 52 mg/dL (7-18) H 07/30/18 06:30 Creatinine 1.2 mg/dL (0.55-1.3) 07/30/18 06:30 Creat Clearance w eGFR 59.35 (>60) 07/30/18 06:30 Calcium 9.2 mg/dL (8.5-10.1) 07/30/18 06:30 Total Bilirubin 0.7 mg/dL (0.2-1) 07/30/18 06:30 AST 32 U/L (15-37) 07/30/18 06:30 ALT 36 U/L (13-61) 07/30/18 06:30 Alkaline Phosphatase 87 U/L (45-117) 07/30/18 06:30 Total Protein 7.4 g/dl (6.4-8.2) 07/30/18 06:30 Albumin 3.1 g/dl (3.4-5.0) L 07/30/18 06:30 Problem List - Problems (1) Encephalopathy Code(s): G93.40 - ENCEPHALOPATHY, UNSPECIFIED (2) CVA (cerebral vascular accident) Code(s): I63.9 - CEREBRAL INFARCTION, UNSPECIFIED (3) UTI (urinary tract infection) Code(s): N39.0 - URINARY TRACT INFECTION, SITE NOT SPECIFIED Qualifiers: Urinary tract infection type: site unspecified Hematuria presence: without hematuria Qualified Code(s): N39.0 - Urinary tract infection, site not specified Assessment/Plan prolonged delirium --this is likely form UTI, very tiny infract on MRI-would not explain MS ASA, statin elevated BUN and NA-dehydrated ?, fluids would hold off transfer , spoke to PMD left message with family to better assess baseline , ? prior stroke deficits DR PAEZ Problem List - Problems (1) Encephalopathy Code(s): G93.40 - ENCEPHALOPATHY, UNSPECIFIED (2) CVA (cerebral vascular accident) Code(s): I63.9 - CEREBRAL INFARCTION, UNSPECIFIED (3) UTI (urinary tract infection) Code(s): N39.0 - URINARY TRACT INFECTION, SITE NOT SPECIFIED Qualifiers: Urinary tract infection type: site unspecified Hematuria presence: without hematuria Qualified Code(s): N39.0 - Urinary tract infection, site not specified
--- NOTE | 2018-07-30 11:41 | PN ---
Progress Note, Physician History of Present Illness: confused,stable calm no evens overnight - Current Medication List Current Medications: Active Medications Acetaminophen (Tylenol -) 650 mg PO Q6H PRN PRN Reason: FEVER Aspirin (Asa -) 81 mg PO DAILY [facility] Atorvastatin Calcium (Lipitor -) 10 mg PO HS [facility] Last Admin: 07/29/18 22:09 Dose: 10 mg Nystatin (Nystop Powder -) 1 applic TP Q12H PRN PRN Reason: PERINEAL AREA Last Admin: 07/29/18 18:16 Dose: 1 applic Olanzapine (Zyprexa -) 10 mg PO BID [facility] Last Admin: 07/30/18 10:23 Dose: 10 mg - Objective Vital Signs: Vital Signs Temperature 97.3 F L 07/30/18 06:46 Pulse Rate 65 07/30/18 06:46 Respiratory Rate 20 07/30/18 06:46 Blood Pressure 143/92 07/30/18 06:46 O2 Sat by Pulse Oximetry (%) 93 L 07/29/18 21:00 Constitutional: Yes: No Distress, Calm Cardiovascular: Yes: S1, S2 Respiratory: Yes: Regular, CTA Bilaterally Gastrointestinal: Yes: Normal Bowel Sounds, Soft Musculoskeletal: Yes: WNL Extremities: Yes: WNL Neurological: Yes: Alert, Confusion Psychiatric: Yes: Other Labs: CBC, BMP 07/30/18 06:30 07/30/18 06:30 INR, PTT INR 1.13 (0.83-1.09) H 07/14/18 18:00 Assessment/Plan Problem List - Problems (1) Pre-syncope Code(s): R55 - SYNCOPE AND COLLAPSE (2) UTI (urinary tract infection) Code(s): N39.0 - URINARY TRACT INFECTION, SITE NOT SPECIFIED Qualifiers: Urinary tract infection type: site unspecified Hematuria presence: without hematuria Qualified Code(s): N39.0 - Urinary tract infection, site not specified r/o urinary retention patient extremely confused,talking well plan continue abx last day of abx will stop after that rest as per the team
[2018-07-30] MEDS ORDERED: SODIUM CHLORIDE 1,000 ML IV SCH (11:45)
[2018-07-30] MEDS: ASPIRIN 81 MG CHEWABLE TABLETS PO SCH (12:25)
--- NOTE | 2018-07-30 13:23 | CONSULT ---
Consult Consult Specialty:: Nephrology Reason for Consultation:: hypernatremia - History of Present Illness Chief Complaint: initially presented for evaluation of weakness History of Present Illness: Pt is a 72 year old male with pmhx of htn, hld, dm, a-fib, bladder cancer and delerium. He initially presented for weakness. He has had a prolonged hospital stay. He is confused and unable to give history. He was treated for a UTI. I was called to evaluate him for hypernatremia and azotemia today. He denies shortness of breath but is a poor historian. 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 Cardio/Vascular: Yes: AFIB, HTN, Hyperlipdemia Renal/: Yes: Cancer Endocrine: Yes: Diabetes Mellitus - Past Surgical History Past Surgical History: Yes: CABG - Alcohol/Substance Use Hx Alcohol Use: No - Smoking History Smoking history: Never smoked Have you smoked in the past 12 months: No Aproximately how many cigarettes per day: 30 If you are a former smoker, when did you quit?: 03/26/12 - Social History Usual Living Arrangement: Alone ADL: Independent History of Recent Travel: No Home Medications - Allergies Allergies/Adverse Reactions: Allergies Allergy/AdvReac Type Severity Reaction Status Date / Time No Known Drug Allergies Allergy Verified 07/14/18 16:28 ADHESIVE TAPE AdvReac Intermediate Uncoded 07/14/18 16:28 - Home Medications Home Medications: Ambulatory Orders Aspirin [ASA -] 81 mg PO DAILY 07/15/18 Atorvastatin Ca [Lipitor] 10 mg PO HS #30 tablet 07/29/18 Nystatin Cream [Mycostatin Cream -] 1 applic TP Q12H PRN applic 07/29/18 Olanzapine [ZyPREXA -] 10 mg PO BID #60 tablet 07/29/18 Family Disease History - Family Disease History Family History: Unable to Obtain Review of Systems Unable to obtain ROS, reason: pt has delerium Findings/Remarks: unable to obtain as he is not answering questions Physical Exam Vital Signs: Vital Signs Temperature 97.3 F L 07/30/18 06:46 Pulse Rate 65 07/30/18 06:46 Respiratory Rate 20 07/30/18 06:46 Blood Pressure 143/92 07/30/18 06:46 O2 Sat by Pulse Oximetry (%) 93 L 07/29/18 21:00 Constitutional: Yes: Calm Eyes: Yes: Conjunctiva Clear HENT: Yes: Atraumatic Cardiovascular: Yes: S1, S2 Respiratory: Yes: CTA Bilaterally Gastrointestinal: Yes: Soft Renal/: Yes: Incontinence Musculoskeletal: Yes: WNL Edema: No Neurological: Yes: Confusion Labs: CBC, BMP 07/30/18 06:30 07/30/18 06:30 Laboratory Tests 07/14/18 07/14/18 07/15/18 18:00 18:00 07:10 Hgb 16.5 14.6 Sodium 140 BUN Creatinine 07/15/18 07/26/18 07/30/18 07:10 06:15 06:30 Hgb 16.2 Sodium 140 143 BUN 22 H 46 H Creatinine 1.1 1.2 07/30/18 06:30 Hgb Sodium 151 H BUN 52 H Creatinine 1.2 Problem List - Problems (1) Hypernatremia Code(s): E87.0 - HYPEROSMOLALITY AND HYPERNATREMIA (2) Azotemia Code(s): R79.89 - OTHER SPECIFIED ABNORMAL FINDINGS OF BLOOD CHEMISTRY (3) Mental confusion Code(s): R41.0 - DISORIENTATION, UNSPECIFIED (4) UTI (urinary tract infection) Code(s): N39.0 - URINARY TRACT INFECTION, SITE NOT SPECIFIED Qualifiers: Urinary tract infection type: site unspecified Hematuria presence: without hematuria Qualified Code(s): N39.0 - Urinary tract infection, site not specified Assessment/Plan Current Medications Generic Name Dose Route Start Last Admin Trade Name Freq PRN Reason Stop Dose Admin Acetaminophen 650 mg 07/14/18 20:49 Tylenol - PO Q6H PRN FEVER Aspirin 81 mg 07/30/18 11:45 07/30/18 12:25 Asa - PO 81 mg DAILY NAN Administration Atorvastatin Calcium 10 mg 07/28/18 22:00 07/29/18 22:09 Lipitor - PO 10 mg HS NAN Administration Sodium Chloride 1,000 mls @ 100 mls/hr 07/30/18 11:45 07/30/18 12:24 Normal Saline - IV 100 mls/hr ASDIR NAN Administration Nystatin 1 applic 07/29/18 12:07 07/29/18 18:16 Nystop Powder - TP 1 applic Q12H PRN Administration PERINEAL AREA Olanzapine 10 mg 07/17/18 22:00 07/30/18 10:23 Zyprexa - PO 10 mg BID NAN Administration Impression 1. hypernatremia 2. azotemia 3. UTI 4. delerium 5. HTN 6. DM 7. HLD 8. a-fib 9. bladder cancer Plan - pt has a total free water deficit of about 4.1 liters - bun has also been rising - stop ns and change to 1/2 ns - repeat labs in am - check renal ultrasound - encourage PO water intake, will ask nurse to give him a pitcher - will follow Dr Sampson
[2018-07-30] MEDS: SODIUM CHLORIDE 0.45% 1,000 ML IV SCH (14:49)
--- NOTE | 2018-07-30 16:01 | PN ---
Progress Note, Physician History of Present Illness: continued to be confuse stable - Current Medication List Current Medications: Active Medications Acetaminophen (Tylenol -) 650 mg PO Q6H PRN PRN Reason: FEVER Aspirin (Asa -) 81 mg PO DAILY [facility] Last Admin: 07/30/18 12:25 Dose: 81 mg Atorvastatin Calcium (Lipitor -) 10 mg PO HS [facility] Last Admin: 07/29/18 22:09 Dose: 10 mg Sodium Chloride (1/2 Normal Saline) 1,000 mls @ 100 mls/hr IV ASDIR [facility] Last Admin: 07/30/18 14:49 Dose: 100 mls/hr Nystatin (Nystop Powder -) 1 applic TP Q12H PRN PRN Reason: PERINEAL AREA Last Admin: 07/29/18 18:16 Dose: 1 applic Olanzapine (Zyprexa -) 10 mg PO BID [facility] Last Admin: 07/30/18 10:23 Dose: 10 mg - Objective Vital Signs: Vital Signs Temperature 97.4 F L 07/30/18 15:31 Pulse Rate 79 07/30/18 15:31 Respiratory Rate 20 07/30/18 15:31 Blood Pressure 143/86 07/30/18 15:31 O2 Sat by Pulse Oximetry (%) 94 L 07/30/18 09:00 Constitutional: Yes: No Distress HENT: Yes: Atraumatic Neck: Yes: Supple Cardiovascular: Yes: Regular Rate and Rhythm Respiratory: Yes: CTA Bilaterally Gastrointestinal: Yes: Normal Bowel Sounds Extremities: Yes: WNL Edema: No Peripheral Pulses WNL: Yes Neurological: Yes: Alert, Oriented Labs: CBC, BMP 07/30/18 06:30 07/30/18 06:30 INR, PTT INR 1.13 (0.83-1.09) H 07/14/18 18:00 Problem List - Problems (1) Pre-syncope Assessment/Plan: resolved Code(s): R55 - SYNCOPE AND COLLAPSE (2) UTI (urinary tract infection) Assessment/Plan: completed abx Code(s): N39.0 - URINARY TRACT INFECTION, SITE NOT SPECIFIED Qualifiers: Urinary tract infection type: site unspecified Hematuria presence: without hematuria Qualified Code(s): N39.0 - Urinary tract infection, site not specified (3) Mental confusion Assessment/Plan: neuro on board all notes and reports reviewed could be due to new stroke vs infection mri ? Code(s): R41.0 - DISORIENTATION, UNSPECIFIED (4) CVA (cerebral vascular accident) Assessment/Plan: as per mri Code(s): I63.9 - CEREBRAL INFARCTION, UNSPECIFIED (5) Hypernatremia Assessment/Plan: mild will hydrate...1/2 NS renal on board fu labs Code(s): E87.0 - HYPEROSMOLALITY AND HYPERNATREMIA
[2018-07-30] MEDS: ATORVASTATIN CA 10 MG TABLET (FP) PO SCH (22:15)
[2018-07-30 23:12] LABS: URINE APPEARANCE CLEAR; URINE BILIRUBIN NEGATIVE (<2.0 mg/dL); URINE COLOR YELLOW; URINE GLUCOSE (UA) NEGATIVE (NEGATIVE); URINE KETONE NEGATIVE (NEGATIVE); URINE LEUK ESTERASE NEGATIVE (NEGATIVE); URINE NITRITE NEGATIVE (NEGATIVE); URINE PROTEIN 2+ (NEGATIVE)
[2018-07-30 23:18] LABS: EPI CELLS RARE /HPF (FEW); URINE MUCUS RARE
[2018-07-31 08:01] LABS: ALBUMIN 3.1 g/dl (3.4-5.0); ALK PHOS 89 U/L (45-117); ANION GAP 7 MMOL/L (8-16); BILIRUBIN,TOTAL 0.8 mg/dL (0.2-1); BLOOD UREA NITROGEN 43 mg/dL (7-18); CALCIUM 9.3 mg/dL (8.5-10.1); CHLORIDE 115 mmol/L (98-107); CO2 27 mmol/L (21-32); GLUCOSE,RANDOM 95 mg/dL (74-106); POTASSIUM 4.3 mmol/L (3.5-5.1); SGOT/AST 49 U/L (15-37); SGPT/ALT 52 U/L (13-61); SODIUM 148 mmol/L (136-145); TOT PROT 7.2 g/dl (6.4-8.2)
[2018-07-31] MEDS ORDERED: LORazepam 2 MG/ML SDV VIAL IVPUSH ONE (11:00)
[2018-07-31] MEDS ORDERED: PT OWN MED DRAWER 7, Y5N ONE (11:06)
[2018-07-31] MEDS: ASPIRIN 81 MG CHEWABLE TABLETS PO SCH (11:10)
[2018-07-31] MEDS: OLANZapine 10 MG TABLET PO SCH ×2 (11:10→21:25)
[2018-07-31] MEDS: SODIUM CHLORIDE 0.45% 1,000 ML IV SCH ×3 (11:11→23:09)
--- NOTE | 2018-07-31 12:04 | PN ---
Progress Note, Physician History of Present Illness: patient still confused getting mri - Current Medication List Current Medications: Active Medications Acetaminophen (Tylenol -) 650 mg PO Q6H PRN PRN Reason: FEVER Aspirin (Asa -) 81 mg PO DAILY [facility] Last Admin: 07/31/18 11:10 Dose: 81 mg Atorvastatin Calcium (Lipitor -) 10 mg PO HS [facility] Last Admin: 07/30/18 22:15 Dose: 10 mg Sodium Chloride (1/2 Normal Saline) 1,000 mls @ 100 mls/hr IV ASDIR [facility] Last Admin: 07/31/18 11:11 Dose: 100 mls/hr Nystatin (Nystop Powder -) 1 applic TP Q12H PRN PRN Reason: PERINEAL AREA Last Admin: 07/29/18 18:16 Dose: 1 applic Olanzapine (Zyprexa -) 10 mg PO BID [facility] Last Admin: 07/31/18 11:10 Dose: 10 mg - Objective Vital Signs: Vital Signs Temperature 98.2 F 07/31/18 06:10 Pulse Rate 60 07/31/18 06:10 Respiratory Rate 20 07/31/18 06:10 Blood Pressure 160/79 07/31/18 06:10 O2 Sat by Pulse Oximetry (%) 94 L 07/30/18 21:00 Constitutional: Yes: Calm, Anxious Cardiovascular: Yes: Regular Rate and Rhythm Respiratory: Yes: Regular, CTA Bilaterally Gastrointestinal: Yes: Normal Bowel Sounds, Soft Musculoskeletal: Yes: WNL Extremities: Yes: WNL Neurological: Yes: Alert, Other Psychiatric: Yes: Other Labs: CBC, BMP 07/30/18 06:30 07/31/18 06:00 INR, PTT INR 1.13 (0.83-1.09) H 07/14/18 18:00 Assessment/Plan Problem List - Problems (1) Pre-syncope Code(s): R55 - SYNCOPE AND COLLAPSE (2) UTI (urinary tract infection) Code(s): N39.0 - URINARY TRACT INFECTION, SITE NOT SPECIFIED Qualifiers: Urinary tract infection type: site unspecified Hematuria presence: without hematuria Qualified Code(s): N39.0 - Urinary tract infection, site not specified r/o urinary retention patient extremely confused,talking well plan off of abx await for mri results monitor confusion rest as per the team
[2018-07-31] MEDS ORDERED: MINERAL OIL/PET HY-PHL TOPICAL OINTMENT 454 GM JAR TP PRN (12:29)
[2018-07-31] MEDS: MINERAL OIL 30 ML UNIT-DOSE CUP PO PRN (14:18)
--- NOTE | 2018-07-31 16:39 | PN ---
Progress Note (short form) - Note Progress Note: being treated for UTI, prolonged delirium, sedated bc of recent scan attempted bedside LP unsuccesful spoke to sister yesterday, apx one month ago, was functioning well , though his home was inordinately messy she noted word findings issues over last couple months but didnt think much of it no hx of ETIH , drugs repeat MRI BRAIN REVIEWED IMPRESSION: A 0.4 cm acute periventricular white matter infarct is seen abutting the lateral border of the occipital/temporal segment of the left lateral ventricle. Chronic left basal ganglia infarct. Chronic right posterior frontal subcortical white matter infarct. Mild to moderate periventricular and subcortical chronic microvascular ischemic changes. ECHO WNL - Current Medication List Current Medications: Active Medications Acetaminophen (Tylenol -) 650 mg PO Q6H PRN PRN Reason: FEVER Meropenem 1 gm/ Dextrose 100 mls @ 200 mls/hr IVPB Q8H-IV NAN Last Admin: 07/26/18 02:00 Dose: 200 mls/hr Olanzapine (Zyprexa -) 10 mg PO BID NAN Last Admin: 07/25/18 21:21 Dose: 10 mg - Objective Vital Signs: Vital Signs Temperature 97.5 F L 07/31/18 15:20 Pulse Rate 66 07/31/18 15:20 Respiratory Rate 20 07/31/18 15:20 Blood Pressure 131/78 07/31/18 15:20 O2 Sat by Pulse Oximetry (%) 94 L 07/31/18 09:00 Labs: CBCD WBC 7.2 K/mm3 (4.0-10.0) 07/30/18 06:30 RBC 5.75 M/mm3 (4.00-5.60) H 07/30/18 06:30 Hgb 16.2 GM/dL (11.7-16.9) 07/30/18 06:30 Hct 50.0 % (35.4-49) H 07/30/18 06:30 MCV 86.9 fl (80-96) 07/30/18 06:30 MCHC 32.4 g/dl (32.0-35.9) 07/30/18 06:30 RDW 14.2 % (11.9-15.9) 07/30/18 06:30 Plt Count 160 K/MM3 (134-434) 07/30/18 06:30 MPV 9.5 fl (7.5-11.1) 07/30/18 06:30 CMP Sodium 148 mmol/L (136-145) H 07/31/18 06:00 Potassium 4.3 mmol/L (3.5-5.1) 07/31/18 06:00 Chloride 115 mmol/L (98-107) H 07/31/18 06:00 Carbon Dioxide 27 mmol/L (21-32) 07/31/18 06:00 Anion Gap 7 MMOL/L (8-16) L 07/31/18 06:00 BUN 43 mg/dL (7-18) H 07/31/18 06:00 Creatinine 1.0 mg/dL (0.55-1.3) 07/31/18 06:00 Creat Clearance w eGFR > 60 (>60) 07/31/18 06:00 Calcium 9.3 mg/dL (8.5-10.1) 07/31/18 06:00 Total Bilirubin 0.8 mg/dL (0.2-1) 07/31/18 06:00 AST 49 U/L (15-37) H 07/31/18 06:00 ALT 52 U/L (13-61) 07/31/18 06:00 Alkaline Phosphatase 89 U/L (45-117) 07/31/18 06:00 Total Protein 7.2 g/dl (6.4-8.2) 07/31/18 06:00 Albumin 3.1 g/dl (3.4-5.0) L 07/31/18 06:00 Problem List - Problems (1) Encephalopathy Code(s): G93.40 - ENCEPHALOPATHY, UNSPECIFIED (2) CVA (cerebral vascular accident) Code(s): I63.9 - CEREBRAL INFARCTION, UNSPECIFIED (3) UTI (urinary tract infection) Code(s): N39.0 - URINARY TRACT INFECTION, SITE NOT SPECIFIED Qualifiers: Urinary tract infection type: site unspecified Hematuria presence: without hematuria Qualified Code(s): N39.0 - Urinary tract infection, site not specified Assessment/Plan prolonged delirium --this is likely form UTI, very tiny infract on MRI-would not explain MS ASA, statin repeat MRI , no new stroke, atrophy elevated BUN and NA-dehydrated , fluids less likely encephalitis, LP was attempted --unable will see if can get fluoroguided in AM if no change in MS by AM DR PAEZ Problem List - Problems (1) Encephalopathy Code(s): G93.40 - ENCEPHALOPATHY, UNSPECIFIED (2) CVA (cerebral vascular accident) Code(s): I63.9 - CEREBRAL INFARCTION, UNSPECIFIED (3) UTI (urinary tract infection) Code(s): N39.0 - URINARY TRACT INFECTION, SITE NOT SPECIFIED Qualifiers: Urinary tract infection type: site unspecified Hematuria presence: without hematuria Qualified Code(s): N39.0 - Urinary tract infection, site not specified
[2018-07-31] MEDS ORDERED: LIDOCAINE HCL 1%, 10 MG/ML (20ML VIAL) ONE (17:23)
--- NOTE | 2018-07-31 17:24 | PN ---
Progress Note, Physician History of Present Illness: Pt seen and examined at bedside. No great change in clinical status. - Current Medication List Current Medications: Active Medications Acetaminophen (Tylenol -) 650 mg PO Q6H PRN PRN Reason: FEVER Aspirin (Asa -) 81 mg PO DAILY [facility] Last Admin: 07/31/18 11:10 Dose: 81 mg Atorvastatin Calcium (Lipitor -) 10 mg PO HS [facility] Last Admin: 07/30/18 22:15 Dose: 10 mg Emollient Ointment (Aquaphor -) 1 applic TP BID PRN PRN Reason: DRY SKIN Last Admin: 07/31/18 14:18 Dose: 1 applic Sodium Chloride (1/2 Normal Saline) 1,000 mls @ 100 mls/hr IV ASDIR [facility] Last Admin: 07/31/18 11:11 Dose: 100 mls/hr Mineral Oil (Mineral Oil -) 30 ml PO TID PRN PRN Reason: DRYNESS Last Admin: 07/31/18 14:18 Dose: 30 ml Nystatin (Nystop Powder -) 1 applic TP Q12H PRN PRN Reason: PERINEAL AREA Last Admin: 07/29/18 18:16 Dose: 1 applic Olanzapine (Zyprexa -) 10 mg PO BID [facility] Last Admin: 07/31/18 11:10 Dose: 10 mg - Objective Vital Signs: Vital Signs Temperature 97.5 F L 07/31/18 15:20 Pulse Rate 66 07/31/18 15:20 Respiratory Rate 20 07/31/18 15:20 Blood Pressure 131/78 07/31/18 15:20 O2 Sat by Pulse Oximetry (%) 94 L 07/31/18 09:00 Constitutional: Yes: Calm Eyes: Yes: Conjunctiva Clear HENT: Yes: Atraumatic Neck: Yes: Supple Cardiovascular: Yes: S1, S2 Respiratory: Yes: CTA Bilaterally Gastrointestinal: Yes: Soft Musculoskeletal: Yes: Muscle Weakness Edema: No Neurological: Yes: Confusion Labs: CBC, BMP 07/30/18 06:30 07/31/18 06:00 INR, PTT INR 1.13 (0.83-1.09) H 07/14/18 18:00 Problem List - Problems (1) Hypernatremia Code(s): E87.0 - HYPEROSMOLALITY AND HYPERNATREMIA (2) Azotemia Code(s): R79.89 - OTHER SPECIFIED ABNORMAL FINDINGS OF BLOOD CHEMISTRY (3) Mental confusion Code(s): R41.0 - DISORIENTATION, UNSPECIFIED (4) UTI (urinary tract infection) Code(s): N39.0 - URINARY TRACT INFECTION, SITE NOT SPECIFIED Qualifiers: Urinary tract infection type: site unspecified Hematuria presence: without hematuria Qualified Code(s): N39.0 - Urinary tract infection, site not specified Assessment/Plan Current Medications Generic Name Dose Route Start Last Admin Trade Name Freq PRN Reason Stop Dose Admin Acetaminophen 650 mg 07/14/18 20:49 Tylenol - PO Q6H PRN FEVER Aspirin 81 mg 07/30/18 11:45 07/31/18 11:10 Asa - PO 81 mg DAILY NAN Administration Atorvastatin Calcium 10 mg 07/28/18 22:00 07/30/18 22:15 Lipitor - PO 10 mg HS NAN Administration Emollient Ointment 1 applic 07/31/18 12:29 07/31/18 14:18 Aquaphor - TP 1 applic BID PRN Administration DRY SKIN Sodium Chloride 1,000 mls @ 100 mls/hr 07/30/18 13:30 07/31/18 11:11 1/2 Normal Saline IV 100 mls/hr ASDIR NAN Administration Mineral Oil 30 ml 07/31/18 12:30 07/31/18 14:18 Mineral Oil - PO 30 ml TID PRN Administration DRYNESS Nystatin 1 applic 07/29/18 12:07 07/29/18 18:16 Nystop Powder - TP 1 applic Q12H PRN Administration PERINEAL AREA Olanzapine 10 mg 07/17/18 22:00 07/31/18 11:10 Zyprexa - PO 10 mg BID NAN Administration Impression 1. hypernatremia 2. azotemia 3. UTI 4. delerium 5. HTN 6. DM 7. HLD 8. a-fib 9. bladder cancer 10. right renal cyst Plan - cont with hypotonic fluids - sodium is improving - encourage free water intake - repeat labs in am - renal ultrasound reviewed - will follow Dr Sampson
[2018-07-31] MEDS ORDERED: LIDOCAINE HCL 1%, 10 MG/ML (20ML VIAL) NR ONE (17:25)
--- NOTE | 2018-07-31 19:06 | PN ---
Progress Note, Physician History of Present Illness: continued to be confuse stable - Current Medication List Current Medications: Active Medications Acetaminophen (Tylenol -) 650 mg PO Q6H PRN PRN Reason: FEVER Atorvastatin Calcium (Lipitor -) 10 mg PO HS [facility] Last Admin: 07/30/18 22:15 Dose: 10 mg Emollient Ointment (Aquaphor -) 1 applic TP BID PRN PRN Reason: DRY SKIN Last Admin: 07/31/18 14:18 Dose: 1 applic Sodium Chloride (1/2 Normal Saline) 1,000 mls @ 100 mls/hr IV ASDIR [facility] Last Admin: 07/31/18 11:11 Dose: 100 mls/hr Mineral Oil (Mineral Oil -) 30 ml PO TID PRN PRN Reason: DRYNESS Last Admin: 07/31/18 14:18 Dose: 30 ml Nystatin (Nystop Powder -) 1 applic TP Q12H PRN PRN Reason: PERINEAL AREA Last Admin: 07/29/18 18:16 Dose: 1 applic Olanzapine (Zyprexa -) 10 mg PO BID [facility] Last Admin: 07/31/18 11:10 Dose: 10 mg - Objective Vital Signs: Vital Signs Temperature 97.5 F L 07/31/18 15:20 Pulse Rate 66 07/31/18 15:20 Respiratory Rate 20 07/31/18 15:20 Blood Pressure 131/78 07/31/18 15:20 O2 Sat by Pulse Oximetry (%) 94 L 07/31/18 09:00 Constitutional: Yes: Calm HENT: Yes: Atraumatic Neck: Yes: Supple Cardiovascular: Yes: Regular Rate and Rhythm Respiratory: Yes: CTA Bilaterally Gastrointestinal: Yes: Normal Bowel Sounds Extremities: Yes: WNL Edema: No Peripheral Pulses WNL: Yes Neurological: Yes: Alert, Oriented Labs: CBC, BMP 07/30/18 06:30 07/31/18 06:00 INR, PTT INR 1.13 (0.83-1.09) H 07/14/18 18:00 Problem List - Problems (1) Pre-syncope Assessment/Plan: resolved Code(s): R55 - SYNCOPE AND COLLAPSE (2) UTI (urinary tract infection) Assessment/Plan: completed abx Code(s): N39.0 - URINARY TRACT INFECTION, SITE NOT SPECIFIED Qualifiers: Urinary tract infection type: site unspecified Hematuria presence: without hematuria Qualified Code(s): N39.0 - Urinary tract infection, site not specified (3) Mental confusion Assessment/Plan: neuro on board all notes and reports reviewed could be due to new stroke vs infection Code(s): R41.0 - DISORIENTATION, UNSPECIFIED (4) CVA (cerebral vascular accident) Code(s): I63.9 - CEREBRAL INFARCTION, UNSPECIFIED (5) Hypernatremia Code(s): E87.0 - HYPEROSMOLALITY AND HYPERNATREMIA
[2018-07-31] MEDS: ATORVASTATIN CA 10 MG TABLET (FP) PO SCH (21:25)
[2018-08-01 08:55] LABS: ANION GAP 8 MMOL/L (8-16); BLOOD UREA NITROGEN 36 mg/dL (7-18); CALCIUM 8.7 mg/dL (8.5-10.1); CHLORIDE 116 mmol/L (98-107); CO2 23 mmol/L (21-32); CREATININE 0.9 mg/dL (0.55-1.3); GLUCOSE,RANDOM 77 mg/dL (74-106); SODIUM 147 mmol/L (136-145)
[2018-08-01] MEDS ORDERED: PT OWN MED DRAWER 7, Y5N ONE (10:09)
[2018-08-01] MEDS: OLANZapine 10 MG TABLET PO SCH ×2 (10:38→21:26)
[2018-08-01] MEDS ORDERED: LORazepam 2 MG/ML SDV VIAL ONE (11:05)
--- NOTE | 2018-08-01 11:40 | PN ---
Progress Note, Physician History of Present Illness: confusion continues otherwise stable lp failed - Current Medication List Current Medications: Active Medications Acetaminophen (Tylenol -) 650 mg PO Q6H PRN PRN Reason: FEVER Atorvastatin Calcium (Lipitor -) 10 mg PO HS [facility] Last Admin: 07/31/18 21:25 Dose: 10 mg Emollient Ointment (Aquaphor -) 1 applic TP BID PRN PRN Reason: DRY SKIN Last Admin: 07/31/18 14:18 Dose: 1 applic Sodium Chloride (1/2 Normal Saline) 1,000 mls @ 100 mls/hr IV ASDIR NAN Last Admin: 07/31/18 23:09 Dose: 100 mls/hr Mineral Oil (Mineral Oil -) 30 ml PO TID PRN PRN Reason: DRYNESS Last Admin: 07/31/18 14:18 Dose: 30 ml Nystatin (Nystop Powder -) 1 applic TP Q12H PRN PRN Reason: PERINEAL AREA Last Admin: 07/29/18 18:16 Dose: 1 applic Olanzapine (Zyprexa -) 10 mg PO BID [facility] Last Admin: 08/01/18 10:38 Dose: 10 mg - Objective Vital Signs: Vital Signs Temperature 97.4 F L 08/01/18 07:28 Pulse Rate 72 08/01/18 07:28 Respiratory Rate 18 08/01/18 07:28 Blood Pressure 158/83 08/01/18 07:28 O2 Sat by Pulse Oximetry (%) 95 07/31/18 21:00 Constitutional: Yes: Anxious, Other (confused) Cardiovascular: Yes: Regular Rate and Rhythm Respiratory: Yes: Regular, CTA Bilaterally Musculoskeletal: Yes: WNL Extremities: Yes: WNL Neurological: Yes: Confusion, Other Labs: CBC, BMP 07/30/18 06:30 08/01/18 07:10 INR, PTT INR 1.13 (0.83-1.09) H 07/14/18 18:00 Assessment/Plan Problem List - Problems (1) Pre-syncope Code(s): R55 - SYNCOPE AND COLLAPSE (2) UTI (urinary tract infection) Code(s): N39.0 - URINARY TRACT INFECTION, SITE NOT SPECIFIED Qualifiers: Urinary tract infection type: site unspecified Hematuria presence: without hematuria Qualified Code(s): N39.0 - Urinary tract infection, site not specified r/o urinary retention patient extremely confused,talking well plan off of abx as per neurology monitor confusion rest as per the team
[2018-08-01] MEDS ORDERED: LORazepam 2 MG/ML SDV VIAL IVPUSH ONE (12:15)
--- NOTE | 2018-08-01 16:13 | PN ---
Progress Note, Physician History of Present Illness: Pt seen and examined at bedside. He has poor PO intake. He is tolerating fluids. He remains confused. - Current Medication List Current Medications: Active Medications Acetaminophen (Tylenol -) 650 mg PO Q6H PRN PRN Reason: FEVER Atorvastatin Calcium (Lipitor -) 10 mg PO HS [facility] Last Admin: 07/31/18 21:25 Dose: 10 mg Emollient Ointment (Aquaphor -) 1 applic TP BID PRN PRN Reason: DRY SKIN Last Admin: 07/31/18 14:18 Dose: 1 applic Sodium Chloride (1/2 Normal Saline) 1,000 mls @ 100 mls/hr IV ASDIR NAN Last Admin: 07/31/18 23:09 Dose: 100 mls/hr Mineral Oil (Mineral Oil -) 30 ml PO TID PRN PRN Reason: DRYNESS Last Admin: 07/31/18 14:18 Dose: 30 ml Nystatin (Nystop Powder -) 1 applic TP Q12H PRN PRN Reason: PERINEAL AREA Last Admin: 07/29/18 18:16 Dose: 1 applic Olanzapine (Zyprexa -) 10 mg PO BID [facility] Last Admin: 08/01/18 10:38 Dose: 10 mg - Objective Vital Signs: Vital Signs Temperature 98.5 F 08/01/18 15:32 Pulse Rate 82 08/01/18 15:32 Respiratory Rate 18 08/01/18 15:32 Blood Pressure 138/74 08/01/18 15:32 O2 Sat by Pulse Oximetry (%) 96 08/01/18 09:00 Constitutional: Yes: Calm Eyes: Yes: Conjunctiva Clear HENT: Yes: Atraumatic Neck: Yes: Supple Cardiovascular: Yes: S1, S2 Respiratory: Yes: CTA Bilaterally Gastrointestinal: Yes: Normal Bowel Sounds, Soft Genitourinary: Yes: Incontinence Edema: No Neurological: Yes: Confusion Labs: CBC, BMP 07/30/18 06:30 08/01/18 07:10 INR, PTT INR 1.13 (0.83-1.09) H 07/14/18 18:00 Problem List - Problems (1) Hypernatremia Code(s): E87.0 - HYPEROSMOLALITY AND HYPERNATREMIA (2) Azotemia Code(s): R79.89 - OTHER SPECIFIED ABNORMAL FINDINGS OF BLOOD CHEMISTRY (3) Mental confusion Code(s): R41.0 - DISORIENTATION, UNSPECIFIED (4) UTI (urinary tract infection) Code(s): N39.0 - URINARY TRACT INFECTION, SITE NOT SPECIFIED Qualifiers: Urinary tract infection type: site unspecified Hematuria presence: without hematuria Qualified Code(s): N39.0 - Urinary tract infection, site not specified Assessment/Plan Current Medications Generic Name Dose Route Start Last Admin Trade Name Freq PRN Reason Stop Dose Admin Acetaminophen 650 mg 07/14/18 20:49 Tylenol - PO Q6H PRN FEVER Atorvastatin Calcium 10 mg 07/28/18 22:00 07/31/18 21:25 Lipitor - PO 10 mg HS NAN Administration Emollient Ointment 1 applic 07/31/18 12:29 07/31/18 14:18 Aquaphor - TP 1 applic BID PRN Administration DRY SKIN Sodium Chloride 1,000 mls @ 100 mls/hr 07/30/18 13:30 07/31/18 23:09 1/2 Normal Saline IV 100 mls/hr ASDIR NAN Administration Mineral Oil 30 ml 07/31/18 12:30 07/31/18 14:18 Mineral Oil - PO 30 ml TID PRN Administration DRYNESS Nystatin 1 applic 07/29/18 12:07 07/29/18 18:16 Nystop Powder - TP 1 applic Q12H PRN Administration PERINEAL AREA Olanzapine 10 mg 07/17/18 22:00 08/01/18 10:38 Zyprexa - PO 10 mg BID NAN Administration Impression 1. hypernatremia 2. azotemia 3. UTI 4. delerium 5. HTN 6. DM 7. HLD 8. a-fib 9. bladder cancer 10. right renal cyst Plan - cont fluids - sodium is improving - encourage free water intake - monitor labs - will follow Dr Sampson
--- NOTE | 2018-08-01 16:58 | PN ---
Progress Note (short form) - Note Progress Note: NEUROLOGY-F/U-MARIA A CLAUDIO Pt. remains agitated at times, is confused, disoriented, inattentive, appears internally preoccupied.Being rx. for infection but encephalopathy should have been improving by now. MRI brain reviewed Remains confused For l/p today to look for abn. 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
[2018-08-01] MEDS: SODIUM CHLORIDE 0.45% 1,000 ML IV SCH (17:58)
--- NOTE | 2018-08-01 18:43 | PN ---
Progress Note, Physician History of Present Illness: continued to be confuse stable - Current Medication List Current Medications: Active Medications Acetaminophen (Tylenol -) 650 mg PO Q6H PRN PRN Reason: FEVER Atorvastatin Calcium (Lipitor -) 10 mg PO HS [facility] Last Admin: 07/31/18 21:25 Dose: 10 mg Emollient Ointment (Aquaphor -) 1 applic TP BID PRN PRN Reason: DRY SKIN Last Admin: 07/31/18 14:18 Dose: 1 applic Sodium Chloride (1/2 Normal Saline) 1,000 mls @ 100 mls/hr IV ASDIR [facility] Last Admin: 08/01/18 17:58 Dose: 100 mls/hr Mineral Oil (Mineral Oil -) 30 ml PO TID PRN PRN Reason: DRYNESS Last Admin: 07/31/18 14:18 Dose: 30 ml Nystatin (Nystop Powder -) 1 applic TP Q12H PRN PRN Reason: PERINEAL AREA Last Admin: 07/29/18 18:16 Dose: 1 applic Olanzapine (Zyprexa -) 10 mg PO BID [facility] Last Admin: 08/01/18 10:38 Dose: 10 mg - Objective Vital Signs: Vital Signs Temperature 98.5 F 08/01/18 15:32 Pulse Rate 82 08/01/18 15:32 Respiratory Rate 18 08/01/18 15:32 Blood Pressure 138/74 08/01/18 15:32 O2 Sat by Pulse Oximetry (%) 96 08/01/18 09:00 Constitutional: Yes: No Distress HENT: Yes: Atraumatic Neck: Yes: Supple Cardiovascular: Yes: Regular Rate and Rhythm Respiratory: Yes: CTA Bilaterally Gastrointestinal: Yes: Normal Bowel Sounds Extremities: Yes: WNL Neurological: Yes: Alert, Oriented Labs: CBC, BMP 07/30/18 06:30 08/01/18 07:10 INR, PTT INR 1.13 (0.83-1.09) H 07/14/18 18:00 Problem List - Problems (1) Pre-syncope Assessment/Plan: resolved Code(s): R55 - SYNCOPE AND COLLAPSE (2) UTI (urinary tract infection) Assessment/Plan: completed abx Code(s): N39.0 - URINARY TRACT INFECTION, SITE NOT SPECIFIED Qualifiers: Urinary tract infection type: site unspecified Hematuria presence: without hematuria Qualified Code(s): N39.0 - Urinary tract infection, site not specified (3) Mental confusion Assessment/Plan: tried to do LP Code(s): R41.0 - DISORIENTATION, UNSPECIFIED (4) CVA (cerebral vascular accident) Assessment/Plan: as per mri Code(s): I63.9 - CEREBRAL INFARCTION, UNSPECIFIED (5) Hypernatremia Assessment/Plan: mild will hydrate...1/2 NS renal on board fu labs Code(s): E87.0 - HYPEROSMOLALITY AND HYPERNATREMIA
[2018-08-01] MEDS: ATORVASTATIN CA 10 MG TABLET (FP) PO SCH (21:26)
[2018-08-02] MEDS: SODIUM CHLORIDE 0.45% 1,000 ML IV SCH (05:35)
[2018-08-02] MEDS ORDERED: PT OWN MED DRAWER 7, Y5N ONE ×2 (10:07→20:36)
[2018-08-02] MEDS: MINERAL OIL 30 ML UNIT-DOSE CUP PO PRN (10:12)
[2018-08-02] MEDS: OLANZapine 10 MG TABLET PO SCH ×2 (10:12→21:49)
--- NOTE | 2018-08-02 14:53 | PN ---
Progress Note (short form) - Note Progress Note: Calm and pleasant but confused. Little insight. inattentive. S/P LP under fluoroscopic guidance yesterday. Results are pending. Will f/u.
--- NOTE | 2018-08-02 17:43 | PN ---
Progress Note, Physician History of Present Illness: No new complaints - Current Medication List Current Medications: Active Medications Acetaminophen (Tylenol -) 650 mg PO Q6H PRN PRN Reason: FEVER Atorvastatin Calcium (Lipitor -) 10 mg PO HS [facility] Last Admin: 08/01/18 21:26 Dose: 10 mg Emollient Ointment (Aquaphor -) 1 applic TP BID PRN PRN Reason: DRY SKIN Last Admin: 07/31/18 14:18 Dose: 1 applic Sodium Chloride (1/2 Normal Saline) 1,000 mls @ 100 mls/hr IV ASDIR [facility] Last Admin: 08/02/18 05:35 Dose: 100 mls/hr Mineral Oil (Mineral Oil -) 30 ml PO TID PRN PRN Reason: DRYNESS Last Admin: 08/02/18 10:12 Dose: 30 ml Nystatin (Nystop Powder -) 1 applic TP Q12H PRN PRN Reason: PERINEAL AREA Last Admin: 07/29/18 18:16 Dose: 1 applic Olanzapine (Zyprexa -) 10 mg PO BID [facility] Last Admin: 08/02/18 10:12 Dose: 10 mg - Objective Vital Signs: Vital Signs Temperature 97.9 F 08/02/18 16:20 Pulse Rate 77 08/02/18 16:20 Respiratory Rate 20 08/02/18 16:20 Blood Pressure 154/72 08/02/18 16:20 O2 Sat by Pulse Oximetry (%) 96 08/02/18 09:00 Neck: Yes: WNL, Supple Cardiovascular: Yes: WNL, Regular Rate and Rhythm Respiratory: Yes: WNL, Regular, CTA Bilaterally Gastrointestinal: Yes: WNL, Normal Bowel Sounds, Soft Labs: CBC, BMP 07/30/18 06:30 08/01/18 07:10 INR, PTT INR 1.13 (0.83-1.09) H 07/14/18 18:00 Problem List - Problems (1) Hypernatremia Assessment/Plan: Na+ improving As per renal Code(s): E87.0 - HYPEROSMOLALITY AND HYPERNATREMIA (2) Mental confusion Assessment/Plan: S/P LP on ?Results pending ?Results are not in computer As per neuro/ID Code(s): R41.0 - DISORIENTATION, UNSPECIFIED (3) UTI (urinary tract infection) Assessment/Plan: Pt is off antibxs Code(s): N39.0 - URINARY TRACT INFECTION, SITE NOT SPECIFIED Qualifiers: Urinary tract infection type: site unspecified Hematuria presence: without hematuria Qualified Code(s): N39.0 - Urinary tract infection, site not specified
--- NOTE | 2018-08-02 18:46 | PN ---
Progress Note (short form) - Note Progress Note: Problems 1. hypernatremia 2. azotemia 3. UTI 4. delerium 5. HTN 6. DM 7. HLD 8. a-fib 9. bladder cancer 10. right renal cyst Current Medications Acetaminophen (Tylenol -) 650 mg PO Q6H PRN PRN Reason: FEVER Atorvastatin Calcium (Lipitor -) 10 mg PO HS [facility] Last Admin: 08/01/18 21:26 Dose: 10 mg Emollient Ointment (Aquaphor -) 1 applic TP BID PRN PRN Reason: DRY SKIN Last Admin: 07/31/18 14:18 Dose: 1 applic Sodium Chloride (1/2 Normal Saline) 1,000 mls @ 100 mls/hr IV ASDIR [facility] Last Admin: 08/02/18 05:35 Dose: 100 mls/hr Mineral Oil (Mineral Oil -) 30 ml PO TID PRN PRN Reason: DRYNESS Last Admin: 08/02/18 10:12 Dose: 30 ml Nystatin (Nystop Powder -) 1 applic TP Q12H PRN PRN Reason: PERINEAL AREA Last Admin: 07/29/18 18:16 Dose: 1 applic Olanzapine (Zyprexa -) 10 mg PO BID [facility] Last Admin: 08/02/18 10:12 Dose: 10 mg Last Vital Signs Temp Pulse Resp BP Pulse Ox 97.9 F 77 20 154/72 96 08/02/18 16:20 08/02/18 16:20 08/02/18 16:20 08/02/18 16:20 08/02/18 09:00 CBC, BMP 07/30/18 06:30 08/01/18 07:10 IMP- Prerenal azotemia Hypernatremia Hemoconcentration Plan - cont fluids - sodium is improving - encourage free water intake - monitor labs - will follow
[2018-08-02] MEDS: ATORVASTATIN CA 10 MG TABLET (FP) PO SCH (21:49)
[2018-08-03] MEDS: SODIUM CHLORIDE 0.45% 1,000 ML IV SCH (05:39)
[2018-08-03] MEDS: OLANZapine 10 MG TABLET PO SCH ×2 (09:47→23:09)
--- NOTE | 2018-08-03 12:32 | PN ---
Progress Note, Physician - Current Medication List Current Medications: Active Medications Acetaminophen (Tylenol -) 650 mg PO Q6H PRN PRN Reason: FEVER Atorvastatin Calcium (Lipitor -) 10 mg PO HS [facility] Last Admin: 08/02/18 21:49 Dose: 10 mg Emollient Ointment (Aquaphor -) 1 applic TP BID PRN PRN Reason: DRY SKIN Last Admin: 07/31/18 14:18 Dose: 1 applic Sodium Chloride (1/2 Normal Saline) 1,000 mls @ 100 mls/hr IV ASDIR [facility] Last Admin: 08/03/18 05:39 Dose: 100 mls/hr Mineral Oil (Mineral Oil -) 30 ml PO TID PRN PRN Reason: DRYNESS Last Admin: 08/02/18 10:12 Dose: 30 ml Nystatin (Nystop Powder -) 1 applic TP Q12H PRN PRN Reason: PERINEAL AREA Last Admin: 07/29/18 18:16 Dose: 1 applic Olanzapine (Zyprexa -) 10 mg PO BID [facility] Last Admin: 08/03/18 09:47 Dose: 10 mg - Objective Vital Signs: Vital Signs Temperature 98.3 F 08/03/18 10:00 Pulse Rate 78 08/03/18 10:00 Respiratory Rate 18 08/03/18 10:00 Blood Pressure 153/79 08/03/18 10:00 O2 Sat by Pulse Oximetry (%) 92 L 08/03/18 09:00 Labs: CBC, BMP 07/30/18 06:30 08/01/18 07:10 INR, PTT INR 1.13 (0.83-1.09) H 07/14/18 18:00
--- NOTE | 2018-08-03 12:54 | PN ---
Progress Note (short form) - Note Progress Note: Calm and pleasant but confused. Little insight. inattentive. S/P LP under fluoroscopic guidance Saturday. Results still not in computer. I spoke to the lab and they never received it. I called radiology and they told me that the area was lockedup until Saturday and that there wasn't anything they could do, but gave me Dr. Vela's number from [facility]. I left a message for him on voice mail, but as of now haven't heard back.
--- NOTE | 2018-08-03 14:49 | PN ---
Progress Note (short form) - Note Progress Note: Addendum to my earlier note: I received a call from from the nurse on 8W. Apparently there was not enough csf obtained from even the lp under flouroscopic guidance to send off for analysis, hence the lack of data.
--- NOTE | 2018-08-03 20:12 | PN ---
Progress Note, Physician History of Present Illness: No new complaints - Current Medication List Current Medications: Active Medications Acetaminophen (Tylenol -) 650 mg PO Q6H PRN PRN Reason: FEVER Atorvastatin Calcium (Lipitor -) 10 mg PO HS [facility] Last Admin: 08/02/18 21:49 Dose: 10 mg Emollient Ointment (Aquaphor -) 1 applic TP BID PRN PRN Reason: DRY SKIN Last Admin: 07/31/18 14:18 Dose: 1 applic Sodium Chloride (1/2 Normal Saline) 1,000 mls @ 100 mls/hr IV ASDIR [facility] Last Admin: 08/03/18 05:39 Dose: 100 mls/hr Mineral Oil (Mineral Oil -) 30 ml PO TID PRN PRN Reason: DRYNESS Last Admin: 08/02/18 10:12 Dose: 30 ml Nystatin (Nystop Powder -) 1 applic TP Q12H PRN PRN Reason: PERINEAL AREA Last Admin: 07/29/18 18:16 Dose: 1 applic Olanzapine (Zyprexa -) 10 mg PO BID [facility] Last Admin: 08/03/18 09:47 Dose: 10 mg - Objective Vital Signs: Vital Signs Temperature 97.4 F L 08/03/18 16:20 Pulse Rate 80 08/03/18 16:20 Respiratory Rate 18 08/03/18 16:20 Blood Pressure 152/74 08/03/18 16:20 O2 Sat by Pulse Oximetry (%) 92 L 08/03/18 09:00 Neck: Yes: WNL, Supple Cardiovascular: Yes: WNL, Regular Rate and Rhythm Respiratory: Yes: WNL, Regular, CTA Bilaterally Gastrointestinal: Yes: WNL, Normal Bowel Sounds, Soft Labs: CBC, BMP 07/30/18 06:30 08/01/18 07:10 INR, PTT INR 1.13 (0.83-1.09) H 07/14/18 18:00 Problem List - Problems (1) Mental confusion Assessment/Plan: S/P LP on ?Results pending ?Results are not in computer As per neuro/ID Code(s): R41.0 - DISORIENTATION, UNSPECIFIED (2) Hypernatremia Assessment/Plan: Na+ improving As per renal Code(s): E87.0 - HYPEROSMOLALITY AND HYPERNATREMIA (3) UTI (urinary tract infection) Assessment/Plan: Pt is off antibxs Code(s): N39.0 - URINARY TRACT INFECTION, SITE NOT SPECIFIED Qualifiers: Urinary tract infection type: site unspecified Hematuria presence: without hematuria Qualified Code(s): N39.0 - Urinary tract infection, site not specified
--- NOTE | 2018-08-03 21:12 | PN ---
Progress Note (short form) - Note Progress Note: Problems 1. hypernatremia 2. azotemia 3. UTI 4. delerium 5. HTN 6. DM 7. HLD 8. a-fib 9. bladder cancer 10. right renal cyst Current Medications Acetaminophen (Tylenol -) 650 mg PO Q6H PRN PRN Reason: FEVER Atorvastatin Calcium (Lipitor -) 10 mg PO HS [facility] Last Admin: 08/02/18 21:49 Dose: 10 mg Emollient Ointment (Aquaphor -) 1 applic TP BID PRN PRN Reason: DRY SKIN Last Admin: 07/31/18 14:18 Dose: 1 applic Sodium Chloride (1/2 Normal Saline) 1,000 mls @ 100 mls/hr IV ASDIR [facility] Last Admin: 08/03/18 05:39 Dose: 100 mls/hr Mineral Oil (Mineral Oil -) 30 ml PO TID PRN PRN Reason: DRYNESS Last Admin: 08/02/18 10:12 Dose: 30 ml Nystatin (Nystop Powder -) 1 applic TP Q12H PRN PRN Reason: PERINEAL AREA Last Admin: 07/29/18 18:16 Dose: 1 applic Olanzapine (Zyprexa -) 10 mg PO BID [facility] Last Admin: 08/03/18 09:47 Dose: 10 mg Last Vital Signs Temp Pulse Resp BP Pulse Ox 97.4 F L 80 18 152/74 92 L 08/03/18 16:20 08/03/18 16:20 08/03/18 16:20 08/03/18 16:20 08/03/18 09:00 in nad lungs clear heart reg abd soft IMP- Prerenal azotemia Hypernatremia Hemoconcentration Plan- cmp in am - cont fluids - sodium is improving - encourage free water intake - monitor labs - will follow
[2018-08-03] MEDS: ATORVASTATIN CA 10 MG TABLET (FP) PO SCH (23:10)
[2018-08-04 07:25] LABS: ALBUMIN 2.9 g/dl (3.4-5.0); ALK PHOS 85 U/L (45-117); ANION GAP 10 MMOL/L (8-16); BILIRUBIN,TOTAL 1.1 mg/dL (0.2-1); BLOOD UREA NITROGEN 17 mg/dL (7-18); CALCIUM 8.9 mg/dL (8.5-10.1); CHLORIDE 106 mmol/L (98-107); CO2 23 mmol/L (21-32); CREATININE 0.7 mg/dL (0.55-1.3); GLUCOSE,RANDOM 72 mg/dL (74-106); POTASSIUM 3.7 mmol/L (3.5-5.1); SGOT/AST 43 U/L (15-37); SGPT/ALT 44 U/L (13-61); SODIUM 139 mmol/L (136-145); TOT PROT 7.1 g/dl (6.4-8.2)
[2018-08-04] MEDS: OLANZapine 10 MG TABLET PO SCH ×2 (10:01→22:34)
--- NOTE | 2018-08-04 11:11 | PN ---
Progress Note, Physician History of Present Illness: continues to be confused no new events - Current Medication List Current Medications: Active Medications Acetaminophen (Tylenol -) 650 mg PO Q6H PRN PRN Reason: FEVER Atorvastatin Calcium (Lipitor -) 10 mg PO HS [facility] Last Admin: 08/03/18 23:10 Dose: 10 mg Emollient Ointment (Aquaphor -) 1 applic TP BID PRN PRN Reason: DRY SKIN Last Admin: 07/31/18 14:18 Dose: 1 applic Sodium Chloride (1/2 Normal Saline) 1,000 mls @ 100 mls/hr IV ASDIR [facility] Last Admin: 08/03/18 05:39 Dose: 100 mls/hr Mineral Oil (Mineral Oil -) 30 ml PO TID PRN PRN Reason: DRYNESS Last Admin: 08/02/18 10:12 Dose: 30 ml Nystatin (Nystop Powder -) 1 applic TP Q12H PRN PRN Reason: PERINEAL AREA Last Admin: 07/29/18 18:16 Dose: 1 applic Olanzapine (Zyprexa -) 10 mg PO BID [facility] Last Admin: 08/04/18 10:01 Dose: 10 mg - Objective Vital Signs: Vital Signs Temperature 97.8 F 08/04/18 06:00 Pulse Rate 74 08/04/18 06:00 Respiratory Rate 18 08/04/18 06:00 Blood Pressure 133/86 08/04/18 06:00 O2 Sat by Pulse Oximetry (%) 92 L 08/03/18 21:00 Constitutional: Yes: No Distress, Calm Cardiovascular: Yes: S1, S2 Respiratory: Yes: Regular, CTA Bilaterally Gastrointestinal: Yes: Normal Bowel Sounds, Soft Musculoskeletal: Yes: WNL Extremities: Yes: WNL Neurological: Yes: Alert, Confusion Psychiatric: Yes: Other Labs: CBC, BMP 07/30/18 06:30 08/04/18 06:00 INR, PTT INR 1.13 (0.83-1.09) H 07/14/18 18:00 Assessment/Plan Problem List - Problems (1) Pre-syncope Code(s): R55 - SYNCOPE AND COLLAPSE (2) UTI (urinary tract infection) Code(s): N39.0 - URINARY TRACT INFECTION, SITE NOT SPECIFIED Qualifiers: Urinary tract infection type: site unspecified Hematuria presence: without hematuria Qualified Code(s): N39.0 - Urinary tract infection, site not specified r/o urinary retention patient extremely confused,talking well plan off of abx as per neurology monitor confusion rest as per the team
--- NOTE | 2018-08-04 13:42 | PN ---
Progress Note, Physician History of Present Illness: Pt seen and examined at bedside. He is awake and appears comfortable. He remains confused. - Current Medication List Current Medications: Active Medications Acetaminophen (Tylenol -) 650 mg PO Q6H PRN PRN Reason: FEVER Atorvastatin Calcium (Lipitor -) 10 mg PO HS [facility] Last Admin: 08/03/18 23:10 Dose: 10 mg Emollient Ointment (Aquaphor -) 1 applic TP BID PRN PRN Reason: DRY SKIN Last Admin: 07/31/18 14:18 Dose: 1 applic Sodium Chloride (1/2 Normal Saline) 1,000 mls @ 100 mls/hr IV ASDIR [facility] Last Admin: 08/03/18 05:39 Dose: 100 mls/hr Mineral Oil (Mineral Oil -) 30 ml PO TID PRN PRN Reason: DRYNESS Last Admin: 08/02/18 10:12 Dose: 30 ml Nystatin (Nystop Powder -) 1 applic TP Q12H PRN PRN Reason: PERINEAL AREA Last Admin: 07/29/18 18:16 Dose: 1 applic Olanzapine (Zyprexa -) 10 mg PO BID [facility] Last Admin: 08/04/18 10:01 Dose: 10 mg - Objective Vital Signs: Vital Signs Temperature 98.2 F 08/04/18 10:00 Pulse Rate 77 08/04/18 10:00 Respiratory Rate 18 08/04/18 10:00 Blood Pressure 150/90 08/04/18 10:00 O2 Sat by Pulse Oximetry (%) 92 L 08/03/18 21:00 Constitutional: Yes: Calm Eyes: Yes: Conjunctiva Clear HENT: Yes: Atraumatic Neck: Yes: Supple Cardiovascular: Yes: S1, S2 Respiratory: Yes: CTA Bilaterally Gastrointestinal: Yes: Normal Bowel Sounds, Soft Genitourinary: Yes: WNL Musculoskeletal: Yes: WNL Edema: No Neurological: Yes: Confusion Labs: CBC, BMP 07/30/18 06:30 08/04/18 06:00 INR, PTT INR 1.13 (0.83-1.09) H 07/14/18 18:00 Problem List - Problems (1) Hypernatremia Code(s): E87.0 - HYPEROSMOLALITY AND HYPERNATREMIA (2) Azotemia Code(s): R79.89 - OTHER SPECIFIED ABNORMAL FINDINGS OF BLOOD CHEMISTRY (3) Mental confusion Code(s): R41.0 - DISORIENTATION, UNSPECIFIED (4) UTI (urinary tract infection) Code(s): N39.0 - URINARY TRACT INFECTION, SITE NOT SPECIFIED Qualifiers: Urinary tract infection type: site unspecified Hematuria presence: without hematuria Qualified Code(s): N39.0 - Urinary tract infection, site not specified Assessment/Plan Current Medications Generic Name Dose Route Start Last Admin Trade Name Freq PRN Reason Stop Dose Admin Acetaminophen 650 mg 07/14/18 20:49 Tylenol - PO Q6H PRN FEVER Atorvastatin Calcium 10 mg 07/28/18 22:00 08/03/18 23:10 Lipitor - PO 10 mg HS NAN Administration Emollient Ointment 1 applic 07/31/18 12:29 07/31/18 14:18 Aquaphor - TP 1 applic BID PRN Administration DRY SKIN Sodium Chloride 1,000 mls @ 100 mls/hr 07/30/18 13:30 08/03/18 05:39 1/2 Normal Saline IV 100 mls/hr ASDIR NAN Administration Mineral Oil 30 ml 07/31/18 12:30 08/02/18 10:12 Mineral Oil - PO 30 ml TID PRN Administration DRYNESS Nystatin 1 applic 07/29/18 12:07 07/29/18 18:16 Nystop Powder - TP 1 applic Q12H PRN Administration PERINEAL AREA Olanzapine 10 mg 07/17/18 22:00 08/04/18 10:01 Zyprexa - PO 10 mg BID NAN Administration Impression 1. hypernatremia 2. azotemia 3. UTI 4. delerium 5. HTN 6. DM 7. HLD 8. a-fib 9. bladder cancer 10. right renal cyst Plan - sodium is improving - renal function is improving - can decrease fluids to 75 cc - encourage free water intake - monitor labs - will follow Dr Sampson
--- NOTE | 2018-08-04 14:29 | PN ---
Progress Note, Physician History of Present Illness: awake and can converse, though still confused tap x 2 attempted--unsuccessful electrolytes improved unclear if he has a prior fronto temporal dementia as family states he was having wording finding issues in the past well - Current Medication List Current Medications: Active Medications Acetaminophen (Tylenol -) 650 mg PO Q6H PRN PRN Reason: FEVER Atorvastatin Calcium (Lipitor -) 10 mg PO HS [facility] Last Admin: 08/03/18 23:10 Dose: 10 mg Emollient Ointment (Aquaphor -) 1 applic TP BID PRN PRN Reason: DRY SKIN Last Admin: 07/31/18 14:18 Dose: 1 applic Sodium Chloride (1/2 Normal Saline) 1,000 mls @ 100 mls/hr IV ASDIR [facility] Last Admin: 08/03/18 05:39 Dose: 100 mls/hr Mineral Oil (Mineral Oil -) 30 ml PO TID PRN PRN Reason: DRYNESS Last Admin: 08/02/18 10:12 Dose: 30 ml Nystatin (Nystop Powder -) 1 applic TP Q12H PRN PRN Reason: PERINEAL AREA Last Admin: 07/29/18 18:16 Dose: 1 applic Olanzapine (Zyprexa -) 10 mg PO BID [facility] Last Admin: 08/04/18 10:01 Dose: 10 mg - Objective Vital Signs: Vital Signs Temperature 98.2 F 08/04/18 10:00 Pulse Rate 77 08/04/18 10:00 Respiratory Rate 18 08/04/18 10:00 Blood Pressure 150/90 08/04/18 10:00 O2 Sat by Pulse Oximetry (%) 92 L 08/03/18 21:00 Labs: CBC, BMP 07/30/18 06:30 08/04/18 06:00 INR, PTT INR 1.13 (0.83-1.09) H 07/14/18 18:00 Problem List - Problems (1) Encephalopathy Code(s): G93.40 - ENCEPHALOPATHY, UNSPECIFIED (2) CVA (cerebral vascular accident) Code(s): I63.9 - CEREBRAL INFARCTION, UNSPECIFIED (3) UTI (urinary tract infection) Code(s): N39.0 - URINARY TRACT INFECTION, SITE NOT SPECIFIED Qualifiers: Urinary tract infection type: site unspecified Hematuria presence: without hematuria Qualified Code(s): N39.0 - Urinary tract infection, site not specified Assessment/Plan prolonged delirium --UTI/hyponatremia , very tiny infract on MRI-would not explain MS ASA, statin repeat MRI , no new stroke, atrophy less likely encephalitis, LP was attempted x 2 --unable , this is less likely to be issue he may have an underlying fronto-temopral dementia as well , though will continue to assess this as outpt [facility] PSYCH neuro cleared for rehab and expect MS to improve with time DR PAEZ
--- NOTE | 2018-08-04 17:12 | PN ---
Progress Note, Physician History of Present Illness: continued to be confuse stable - Current Medication List Current Medications: Active Medications Acetaminophen (Tylenol -) 650 mg PO Q6H PRN PRN Reason: FEVER Atorvastatin Calcium (Lipitor -) 10 mg PO HS [facility] Last Admin: 08/03/18 23:10 Dose: 10 mg Emollient Ointment (Aquaphor -) 1 applic TP BID PRN PRN Reason: DRY SKIN Last Admin: 07/31/18 14:18 Dose: 1 applic Sodium Chloride (1/2 Normal Saline) 1,000 mls @ 100 mls/hr IV ASDIR [facility] Last Admin: 08/03/18 05:39 Dose: 100 mls/hr Mineral Oil (Mineral Oil -) 30 ml PO TID PRN PRN Reason: DRYNESS Last Admin: 08/02/18 10:12 Dose: 30 ml Nystatin (Nystop Powder -) 1 applic TP Q12H PRN PRN Reason: PERINEAL AREA Last Admin: 07/29/18 18:16 Dose: 1 applic Olanzapine (Zyprexa -) 10 mg PO BID [facility] Last Admin: 08/04/18 10:01 Dose: 10 mg - Objective Vital Signs: Vital Signs Temperature 97.5 F L 08/04/18 17:02 Pulse Rate 71 08/04/18 17:02 Respiratory Rate 20 08/04/18 17:02 Blood Pressure 159/101 H 08/04/18 17:02 O2 Sat by Pulse Oximetry (%) 92 L 08/03/18 21:00 Constitutional: Yes: No Distress HENT: Yes: Atraumatic Neck: Yes: Supple Cardiovascular: Yes: Regular Rate and Rhythm Respiratory: Yes: CTA Bilaterally Gastrointestinal: Yes: Normal Bowel Sounds Extremities: Yes: WNL Edema: No Neurological: Yes: Alert, Oriented Labs: CBC, BMP 07/30/18 06:30 08/04/18 06:00 INR, PTT INR 1.13 (0.83-1.09) H 07/14/18 18:00 Problem List - Problems (1) Pre-syncope Assessment/Plan: resolved Code(s): R55 - SYNCOPE AND COLLAPSE (2) UTI (urinary tract infection) Assessment/Plan: completed abx Code(s): N39.0 - URINARY TRACT INFECTION, SITE NOT SPECIFIED Qualifiers: Urinary tract infection type: site unspecified Hematuria presence: without hematuria Qualified Code(s): N39.0 - Urinary tract infection, site not specified (3) Mental confusion Assessment/Plan: still confused neuro cleared him to be dc fu neuro as out patient Code(s): R41.0 - DISORIENTATION, UNSPECIFIED (4) CVA (cerebral vascular accident) Assessment/Plan: as per mri Code(s): I63.9 - CEREBRAL INFARCTION, UNSPECIFIED (5) Hypernatremia Assessment/Plan: resolved Code(s): E87.0 - HYPEROSMOLALITY AND HYPERNATREMIA
[2018-08-04 19:42] LABS: BASO % 0.6 % (0-2.0); EOS % 2.1 % (0-4.5); HEMATOCRIT 45.9 % (35.4-49); HEMOGLOBIN 15.8 GM/dL (11.7-16.9); LYMPH % 18.5 % (8-40); MCH 28.9 pg (25.7-33.7); MCHC 34.5 g/dl (32.0-35.9); MEAN CELL VOLUME 83.8 fl (80-96); MEAN PLT VOLUME 10.1 fl (7.5-11.1); MONO % 6.5 % (3.8-10.2); NEUT % 72.3 % (42.8-82.8); PLATELET COUNT 161 K/MM3 (134-434); RBC 5.48 M/mm3 (4.00-5.60); RDW 13.7 % (11.9-15.9); WHITE BLOOD COUNT 7.9 K/mm3 (4.0-10.0)
[2018-08-04 20:29] LABS: ALK PHOS 83 U/L (45-117); ANION GAP 13 MMOL/L (8-16); BILIRUBIN,TOTAL 0.9 mg/dL (0.2-1); BLOOD UREA NITROGEN 19 mg/dL (7-18); CALCIUM 8.8 mg/dL (8.5-10.1); CHLORIDE 107 mmol/L (98-107); CO2 22 mmol/L (21-32); CREATININE 0.7 mg/dL (0.55-1.3); GLUCOSE,RANDOM 64 mg/dL (74-106); SGOT/AST 41 U/L (15-37); SGPT/ALT 44 U/L (13-61); SODIUM 142 mmol/L (136-145); TOT PROT 7.1 g/dl (6.4-8.2)
[2018-08-04] MEDS: ATORVASTATIN CA 10 MG TABLET (FP) PO SCH (22:34)
--- NOTE | 2018-08-04 22:54 | DS ---
Physical Examination Vital Signs: Vital Signs Temperature 98.1 F 08/04/18 22:00 Pulse Rate 69 08/04/18 22:00 Respiratory Rate 20 08/04/18 22:00 Blood Pressure 155/86 08/04/18 22:00 O2 Sat by Pulse Oximetry (%) 96 08/04/18 21:00 Labs: CBC, BMP 08/04/18 19:00 08/04/18 19:00 Discharge Summary Reason For Visit: URINARY TRACT INFECTION,PRE SYNCOPE Current Active Problems Azotemia (Acute) CVA (cerebral vascular accident) (Acute) Encephalopathy (Acute) Hypernatremia (Acute) Mental confusion (Acute) Pre-syncope (Acute) UTI (urinary tract infection) (Acute) Condition: Stable - Instructions Referrals: Bharat Saldaña MD [Primary Care Provider] - - Home Medications Comprehensive Discharge Medication List: Ambulatory Orders Aspirin [ASA -] 81 mg PO DAILY 07/15/18 Atorvastatin Ca [Lipitor] 10 mg PO HS #30 tablet 07/29/18 Nystatin Cream [Mycostatin Cream -] 1 applic TP Q12H PRN applic 07/29/18 Olanzapine [ZyPREXA -] 10 mg PO BID #60 tablet 07/29/18 dc snf
[2018-08-05] MEDS: SODIUM CHLORIDE 0.45% 1,000 ML IV SCH (03:30)
[2018-08-05 07:26] LABS: BASO % 0.3 % (0-2.0); EOS % 2.2 % (0-4.5); HEMATOCRIT 54.5 % (35.4-49); HEMOGLOBIN 17.4 GM/dL (11.7-16.9); LYMPH % 27.2 % (8-40); MCH 27.5 pg (25.7-33.7); MCHC 31.9 g/dl (32.0-35.9); MEAN CELL VOLUME 86.4 fl (80-96); MEAN PLT VOLUME 9.4 fl (7.5-11.1); MONO % 5.4 % (3.8-10.2); NEUT % 64.9 % (42.8-82.8); PLATELET COUNT 152 K/MM3 (134-434); RDW 14.1 % (11.9-15.9); WHITE BLOOD COUNT 7.1 K/mm3 (4.0-10.0)
[2018-08-05 09:06] LABS: ALBUMIN 3.2 g/dl (3.4-5.0); ALK PHOS 92 U/L (45-117); ANION GAP 13 MMOL/L (8-16); BLOOD UREA NITROGEN 19 mg/dL (7-18); CALCIUM 9.1 mg/dL (8.5-10.1); CHLORIDE 106 mmol/L (98-107); CO2 20 mmol/L (21-32); CREATININE 0.7 mg/dL (0.55-1.3); GLUCOSE,RANDOM 67 mg/dL (74-106); POTASSIUM 4.3 mmol/L (3.5-5.1); SGOT/AST 53 U/L (15-37); SGPT/ALT 54 U/L (13-61); SODIUM 139 mmol/L (136-145); TOT PROT 7.8 g/dl (6.4-8.2)
[2018-08-05] MEDS: OLANZapine 10 MG TABLET PO SCH (10:58)
--- NOTE | 2018-08-05 12:27 | PN ---
Progress Note, Physician - Current Medication List Current Medications: Active Medications Acetaminophen (Tylenol -) 650 mg PO Q6H PRN PRN Reason: FEVER Atorvastatin Calcium (Lipitor -) 10 mg PO HS [facility] Last Admin: 08/04/18 22:34 Dose: 10 mg Emollient Ointment (Aquaphor -) 1 applic TP BID PRN PRN Reason: DRY SKIN Last Admin: 07/31/18 14:18 Dose: 1 applic Sodium Chloride (1/2 Normal Saline) 1,000 mls @ 100 mls/hr IV ASDIR [facility] Last Admin: 08/05/18 03:30 Dose: 100 mls/hr Mineral Oil (Mineral Oil -) 30 ml PO TID PRN PRN Reason: DRYNESS Last Admin: 08/02/18 10:12 Dose: 30 ml Nystatin (Nystop Powder -) 1 applic TP Q12H PRN PRN Reason: PERINEAL AREA Last Admin: 07/29/18 18:16 Dose: 1 applic Olanzapine (Zyprexa -) 10 mg PO BID [facility] Last Admin: 08/05/18 10:58 Dose: 10 mg - Objective Vital Signs: Vital Signs Temperature 98.2 F 08/05/18 10:00 Pulse Rate 71 08/05/18 10:00 Respiratory Rate 18 08/05/18 10:00 Blood Pressure 158/79 08/05/18 10:00 O2 Sat by Pulse Oximetry (%) 96 08/04/18 21:00 Labs: CBC, BMP 08/05/18 06:15 08/05/18 06:10 INR, PTT INR 1.13 (0.83-1.09) H 07/14/18 18:00
--- NOTE | 2018-08-05 13:54 | PN ---
Progress Note, Physician History of Present Illness: Pt seen and examined at bedside. He is awake however is confused. - Current Medication List Current Medications: Active Medications Acetaminophen (Tylenol -) 650 mg PO Q6H PRN PRN Reason: FEVER Atorvastatin Calcium (Lipitor -) 10 mg PO HS [facility] Last Admin: 08/04/18 22:34 Dose: 10 mg Emollient Ointment (Aquaphor -) 1 applic TP BID PRN PRN Reason: DRY SKIN Last Admin: 07/31/18 14:18 Dose: 1 applic Sodium Chloride (1/2 Normal Saline) 1,000 mls @ 100 mls/hr IV [facility]IR [facility] Last Admin: 08/05/18 03:30 Dose: 100 mls/hr Mineral Oil (Mineral Oil -) 30 ml PO TID PRN PRN Reason: DRYNESS Last Admin: 08/02/18 10:12 Dose: 30 ml Nystatin (Nystop Powder -) 1 applic TP Q12H PRN PRN Reason: PERINEAL AREA Last Admin: 07/29/18 18:16 Dose: 1 applic Olanzapine (Zyprexa -) 10 mg PO BID [facility] Last Admin: 08/05/18 10:58 Dose: 10 mg - Objective Vital Signs: Vital Signs Temperature 98.2 F 08/05/18 10:00 Pulse Rate 71 08/05/18 10:00 Respiratory Rate 18 08/05/18 10:00 Blood Pressure 158/79 08/05/18 10:00 O2 Sat by Pulse Oximetry (%) 96 08/04/18 21:00 Constitutional: Yes: Calm Eyes: Yes: Conjunctiva Clear HENT: Yes: Atraumatic Neck: Yes: Supple Cardiovascular: Yes: S1, S2 Respiratory: Yes: CTA Bilaterally Gastrointestinal: Yes: Soft Genitourinary: Yes: WNL Musculoskeletal: Yes: WNL Edema: No Neurological: Yes: Confusion Labs: CBC, BMP 08/05/18 06:15 08/05/18 06:10 INR, PTT INR 1.13 (0.83-1.09) H 07/14/18 18:00 Problem List - Problems (1) Hypernatremia Code(s): E87.0 - HYPEROSMOLALITY AND HYPERNATREMIA (2) Azotemia Code(s): R79.89 - OTHER SPECIFIED ABNORMAL FINDINGS OF BLOOD CHEMISTRY (3) Mental confusion Code(s): R41.0 - DISORIENTATION, UNSPECIFIED (4) UTI (urinary tract infection) Code(s): N39.0 - URINARY TRACT INFECTION, SITE NOT SPECIFIED Qualifiers: Urinary tract infection type: site unspecified Hematuria presence: without hematuria Qualified Code(s): N39.0 - Urinary tract infection, site not specified Assessment/Plan Current Medications Generic Name Dose Route Start Last Admin Trade Name Freq PRN Reason Stop Dose Admin Acetaminophen 650 mg 07/14/18 20:49 Tylenol - PO Q6H PRN FEVER Atorvastatin Calcium 10 mg 07/28/18 22:00 08/04/18 22:34 Lipitor - PO 10 mg HS NAN Administration Emollient Ointment 1 applic 07/31/18 12:29 07/31/18 14:18 Aquaphor - TP 1 applic BID PRN Administration DRY SKIN Sodium Chloride 1,000 mls @ 100 mls/hr 07/30/18 13:30 08/05/18 03:30 1/2 Normal Saline IV 100 mls/hr ASDIR NAN Administration Mineral Oil 30 ml 07/31/18 12:30 08/02/18 10:12 Mineral Oil - PO 30 ml TID PRN Administration DRYNESS Nystatin 1 applic 07/29/18 12:07 07/29/18 18:16 Nystop Powder - TP 1 applic Q12H PRN Administration PERINEAL AREA Olanzapine 10 mg 07/17/18 22:00 08/05/18 10:58 Zyprexa - PO 10 mg BID NAN Administration Impression 1. hypernatremia 2. azotemia 3. UTI 4. delerium 5. HTN 6. DM 7. HLD 8. a-fib 9. bladder cancer 10. right renal cyst Plan - pt has been off of fluids - volume status is stable - sodium is stable - azotemia is improved - encourage PO and fluid intake to avoid dehydration - will follow prn Dr Sampson
--- NOTE | 2018-08-05 15:13 | DS ---
Physical Examination Vital Signs: Vital Signs Temperature 98.2 F 08/05/18 10:00 Pulse Rate 71 08/05/18 10:00 Respiratory Rate 18 08/05/18 10:00 Blood Pressure 158/79 08/05/18 10:00 O2 Sat by Pulse Oximetry (%) 96 08/04/18 21:00 Constitutional: Yes: Calm HENT: Yes: Atraumatic Neck: Yes: Supple Cardiovascular: Yes: Regular Rate and Rhythm Respiratory: Yes: CTA Bilaterally Gastrointestinal: Yes: Normal Bowel Sounds Extremities: Yes: WNL Edema: No Peripheral Pulses WNL: Yes Neurological: Yes: Alert Labs: CBC, BMP 08/05/18 06:15 08/05/18 06:10 Discharge Summary Reason For Visit: URINARY TRACT INFECTION,PRE SYNCOPE Current Active Problems Azotemia (Acute) CVA (cerebral vascular accident) (Acute) Encephalopathy (Acute) Hypernatremia (Acute) Mental confusion (Acute) Pre-syncope (Acute) UTI (urinary tract infection) (Acute) Condition: Stable - Instructions Referrals: Bharat Saldaña MD [Primary Care Provider] - Disposition: [facility] - Home Medications Comprehensive Discharge Medication List: Ambulatory Orders Aspirin [ASA -] 81 mg PO DAILY 07/15/18 Atorvastatin Ca [Lipitor] 10 mg PO HS #30 tablet 07/29/18 Nystatin Cream [Mycostatin Cream -] 1 applic TP Q12H PRN applic 07/29/18 Olanzapine [ZyPREXA -] 10 mg PO BID #60 tablet 07/29/18 dc snf
[2018-08-05 15:18] VITALS: BP 110/70; PULSE 84; TEMP 98.6
== END 2018-08-05 16:35 | DRG 65 ==
LOC: JER 16:07 → JERBED 20:29 → OBSVTOIN 20:48 → J4W 07-15 18:00 → J8W 07-21 15:35
PROVIDERS: ADMIT Internal Medicine; ATTEND Internal Medicine
PROC: 009U3ZX Drainage of Spinal Canal, Percutaneous Approach, Diagnostic (ICD-10-PCS; principal; 2018-08-01)
DX: I63.9 Cerebral infarction, unspecified (principal); N39.0 Urinary tract infection, site not specified; G93.40 Encephalopathy, unspecified; E87.0 Hyperosmolality and hypernatremia; E87.1 Hypo-osmolality and hyponatremia; I48.91 Unspecified atrial fibrillation; I10 Essential (primary) hypertension; E11.9 Type 2 diabetes mellitus without complications; C67.9 Malignant neoplasm of bladder, unspecified; G31.09 Other frontotemporal neurocognitive disorder; R55 Syncope and collapse; E78.5 Hyperlipidemia, unspecified; N28.1 Cyst of kidney, acquired; Z16.12 Extended spectrum beta lactamase (ESBL) resistance; B96.20 Unspecified Escherichia coli [E. coli] as the cause of diseases classified elsewhere; I25.10 Atherosclerotic heart disease of native coronary artery without angina pectoris; Z95.1 Presence of aortocoronary bypass graft
CPT/HCPCS: 36415; 62272; 70450-TC; 70551-TC; 71045-TC-FY; 76000-TC-FY; 76098-TC-FY; 76775-TC; 77002-TC-FY; 80048; 80053; 81003; 81015; 82436; 82550; 82553; 82570; 82607; 82962; 83880; 84133; 84300; 84443; 84484; 85025; 85610; 85651; 85730; 87040; 87086; 87186; 87899; 93005; 93010; 93306-TC; 97116-GP; 97162-GP; 99285-25; G0378; J7030

== ENCOUNTER 2018-08-05 18:49 | Observation (INO) | payer OTHER, BC ==
[2018-08-05 19:07] VITALS: BMI 29.9
--- NOTE | 2018-08-05 19:16 | PDOC ---
History of Present Illness - General Chief Complaint: Altered Mental Status Stated Complaint: FALL Time Seen by Provider: 08/05/18 19:16 - History of Present Illness Initial Comments: 08/05/18 19:24 Mr. Rios is a 72 yo male w/ pmh of HTN, HLD, DM, afib, bladder cancer, CVA , confusion at baseline who presents for evaluation of unwitnessed fall in [place] earlier today. Patient had been transferred to [facility] today for care however was noted to have fallen in between rounds. Past History - Past Medical History Allergies/Adverse Reactions: Allergies Allergy/AdvReac Type Severity Reaction Status Date / Time No Known Drug Allergies Allergy Verified 08/05/18 19:05 ADHESIVE TAPE AdvReac Intermediate Uncoded 08/05/18 19:05 Home Medications: Ambulatory Orders Aspirin [ASA -] 81 mg PO DAILY 07/15/18 Atorvastatin Ca [Lipitor] 10 mg PO HS #30 tablet 07/29/18 Nystatin Cream [Mycostatin Cream -] 1 applic TP Q12H PRN applic 07/29/18 Olanzapine [ZyPREXA -] 10 mg PO BID #60 tablet 07/29/18 Anemia: No Cancer: Yes (BLADDER 2015) Cardiac Disorders: Yes (HISTORY OF PALPITATIONS HAD CARDIAC ABLATION) COPD: No Diabetes: Yes (NIDDM) Disorders: Yes (KIDNEY STONES) HTN: Yes Hypercholesterolemia: Yes - Surgical History Appendectomy: Yes Cardiac Surgery: Yes (QUADRUPLE BYPASS,CARDIAC ABLATION 1999) - Immunization History Immunization Up to Date: Yes - Suicide/Smoking/Psychosocial Hx Smoking History: Unknown if ever smoked Have you smoked in the past 12 months: No Number of Cigarettes Smoked Daily: 30 If you are a former smoker, when did you quit?: 03/26/12 Information on smoking cessation initiated: No 'Breaking Loose' booklet given: 07/15/18 Hx Alcohol Use: No Drug/Substance Use Hx: No Substance Use Type: None Hx Substance Use Treatment: No Review of Systems - Review of Systems Comments:: 08/05/18 19:32 Unable to obtain further. *Physical Exam - Vital Signs Last Vital Signs Temp Pulse Resp BP Pulse Ox 97.9 F 71 20 156/79 96 08/05/18 19:05 08/05/18 19:05 08/05/18 19:05 08/05/18 19:05 08/05/18 19:05 - Physical Exam Comments: 08/05/18 21:11 GENERAL: +Patient confused. Clear speech however not coherent. Oriented to self only. Awake, alert, in no acute distress HEAD: No signs of trauma, normocephalic, atraumatic EYES: PERRLA, EOMI, sclera anicteric, conjunctiva clear ENT: Auricles normal inspection, hearing grossly normal, nares patent, oropharynx clear without exudates. Moist mucosa NECK: Normal ROM, supple, no lymphadenopathy, JVD, or masses LUNGS: No distress, speaks full sentences, clear to auscultation bilaterally HEART: Regular rate and rhythm, normal S1 and S2, no murmurs, rubs or gallops, peripheral pulses normal and equal bilaterally. ABDOMEN: Soft, nontender, normoactive bowel sounds. No guarding, no rebound. No masses EXTREMITIES: Normal inspection, Normal range of motion, no edema. No clubbing or cyanosis. NEUROLOGICAL: +Unable to assess further. SKIN: Warm, Dry, normal turgor, no rashes or lesions noted. Moderate Sedation - Procedure Monitoring Vital Signs: Procedure Monitoring Vital Signs Temperature 97.9 F 08/05/18 19:05 Pulse Rate 71 08/05/18 19:05 Respiratory Rate 20 08/05/18 19:05 Blood Pressure 156/79 08/05/18 19:05 O2 Sat by Pulse Oximetry (%) 96 08/05/18 19:05 ED Treatment Course - LABORATORY CBC & Chemistry Diagram: 08/05/18 20:20 08/05/18 20:20 Medical Decision Making - Medical Decision Making 08/06/18 00:44 Mr. Rios is a 72 yo male w/ pmh as described who presents s/p fall earlier today from [place]. [place] unable to provide further history when called as patient was only there for a short time. Patient noted to be extremely altered. 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 Patient was discharged this AM after several unsuccessful LP attempts to NH. Unable to find cause of patient's AMS. Patient head / C-spine CT's negative, labs as below. Unable to evaluate patient mental status change so will admit for obs and repeat evaluation by care team. Laboratory Results - last 24 hr 08/05/18 08/05/18 08/05/18 20:13 20:20 20:20 WBC 10.1 H RBC 5.71 H Hgb 16.4 Hct 47.8 MCV 83.8 MCH 28.8 MCHC 34.4 RDW 13.9 Plt Count 213 D MPV 9.6 Absolute Neuts (auto) 8.1 H Neutrophils % 80.6 D Lymphocytes % 12.2 D Monocytes % 5.0 Eosinophils % 1.6 Basophils % 0.6 Nucleated RBC % 1 H PT with INR 17.00 H INR 1.44 H PTT (Actin FS) 31.0 Sodium Potassium Chloride Carbon Dioxide Anion Gap BUN Creatinine Creat Clearance w eGFR Random Glucose Calcium Total Bilirubin AST ALT Alkaline Phosphatase Total Protein Albumin Urine Color Yellow Urine Appearance Clear Urine pH 5.0 Ur Specific [place] 1.016 Urine Protein 2+ H Urine Glucose (UA) Negative Urine Ketones 1+ H Urine Blood 1+ H Urine Nitrite Negative Urine Bilirubin Negative Urine Urobilinogen Negative Ur Leukocyte Esterase Negative Urine WBC (Auto) 1 Urine RBC (Auto) <1 Urine Bacteria Rare Urine Mucus Rare Urine Yeast Rare Blood Type Antibody Screen 08/05/18 08/05/18 20:20 20:20 WBC RBC Hgb Hct MCV MCH MCHC RDW Plt Count MPV Absolute Neuts (auto) Neutrophils % Lymphocytes % Monocytes % Eosinophils % Basophils % Nucleated RBC % PT with INR INR PTT (Actin FS) Sodium 140 Potassium 4.3 Chloride 106 Carbon Dioxide 20 L Anion Gap 14 BUN 18 Creatinine 0.6 Creat Clearance w eGFR > 60 Random Glucose 71 L Calcium 9.0 Total Bilirubin 1.0 AST 49 H ALT 47 Alkaline Phosphatase 86 Total Protein 7.6 Albumin 3.2 L Urine Color Urine Appearance Urine pH Ur Specific [place] Urine Protein Urine Glucose (UA) Urine Ketones Urine Blood Urine Nitrite Urine Bilirubin Urine Urobilinogen Ur Leukocyte Esterase Urine WBC (Auto) Urine RBC (Auto) Urine Bacteria Urine Mucus Urine Yeast Blood Type A POSITIVE Antibody Screen Negative *DC/Admit/Observation/Transfer Diagnosis at time of Disposition: Fall Qualifiers: Encounter type: initial encounter Qualified Code(s): W19.XXXA - Unspecified fall, initial encounter Altered mental status Qualifiers: Altered mental status type: unspecified Qualified Code(s): R41.82 - Altered mental status, unspecified - Discharge Dispostion Decision to Admit order: Yes - Referrals Referrals: Cosme Phan MD [Primary Care Provider] - - Patient Instructions - Post Discharge Activity
--- NOTE | 2018-08-05 19:26 | PDOC ---
Attending Attestation - Resident Resident Name: Austen Toledo - ED Attending Attestation I have performed the following: I have examined & evaluated the patient, The case was reviewed & discussed with the resident, I agree w/resident's findings & plan, Exceptions are as noted - HPI HPI: 08/05/18 19:33 Mr Rios is a 72 yo M h/o hypertension, hyperlipidemia, diabetes type II, coronary artery disease with four-vessel CABG in 1999, arrhythmia ( aflutter vs. afib s/p ablations x 2), h/o bladder cancer, PAD s/p stending who presents to the ER from [facility] s/p fall Pt was discharged from this facility earlier today He arrived at [facility] and fell and was sent back to the ER This patient is confused (per [facility] report) Per chart review, pt had prolonged delirium for which Neuro work up included MRI which demonstrated - resolving sub acute periventricular infarct, LP which was attempted but unsuccessful. Fluoroscopic LP performed 08/01 and there was not enough fluid to send for analysis (limbic encephalitis had been on the differential) The patient per chart review was apparently independent as of 1 month ago and was not previously noted to have dementia Pt was cleared by Neuro and discharged to home 08/05/18 19:45 08/05/18 19:49 08/05/18 19:52 08/05/18 19:53 - Physicial Exam PE: 08/06/18 01:45 Pt is awake and alert Confused Moving all extremities Regular No murmurs No abd tenderness No cellulitis - Medical Decision Making 08/05/18 19:57 Will do: Labs CT EKG Admit 08/06/18 01:47 EKG - SR rate of 76 bpm, intervals abn - pr:122ms, QRS:124ms, QTc: 506ms, no st elevations, (+) PVC 08/06/18 01:48 Laboratory Tests 08/05/18 08/05/18 08/05/18 20:20 20:20 20:20 WBC 10.1 H Hgb 16.4 Hct 47.8 Plt Count 213 D INR 1.44 H BUN 18 Creatinine 0.6 Creatine Kinase Troponin I 08/06/18 01:04 WBC Hgb Hct Plt Count INR BUN Creatinine Creatine Kinase 133 Troponin I 0.05
[2018-08-05 20:19] LABS: URINE APPEARANCE CLEAR; URINE BILIRUBIN NEGATIVE (<2.0 mg/dL); URINE COLOR YELLOW; URINE GLUCOSE (UA) NEGATIVE (NEGATIVE); URINE KETONE 1+ (NEGATIVE); URINE LEUK ESTERASE NEGATIVE (NEGATIVE); URINE NITRITE NEGATIVE (NEGATIVE); URINE PROTEIN 2+ (NEGATIVE); URINE UROBILINOGEN NEGATIVE mg/dL (0.2-1.0)
[2018-08-05 20:22] LABS: URINE BACTERIA RARE /hpf (NONE SEEN); URINE MUCUS RARE; YEAST RARE
[2018-08-05 20:31] LABS: BASO % 0.6 % (0-2.0); EOS % 1.6 % (0-4.5); HEMATOCRIT 47.8 % (35.4-49); HEMOGLOBIN 16.4 GM/dL (11.7-16.9); LYMPH % 12.2 % (8-40); MCH 28.8 pg (25.7-33.7); MCHC 34.4 g/dl (32.0-35.9); MEAN CELL VOLUME 83.8 fl (80-96); MEAN PLT VOLUME 9.6 fl (7.5-11.1); NEUT % 80.6 % (42.8-82.8); PLATELET COUNT 213 K/MM3 (134-434); RBC 5.71 M/mm3 (4.00-5.60); RDW 13.9 % (11.9-15.9); WHITE BLOOD COUNT 10.1 K/mm3 (4.0-10.0)
[2018-08-05 20:55] LABS: INR 1.44 (0.83-1.09)
[2018-08-05 21:08] LABS: ALBUMIN 3.2 g/dl (3.4-5.0); ALK PHOS 86 U/L (45-117); ANION GAP 14 MMOL/L (8-16); BLOOD UREA NITROGEN 18 mg/dL (7-18); CHLORIDE 106 mmol/L (98-107); CO2 20 mmol/L (21-32); CREATININE 0.6 mg/dL (0.55-1.3); GLUCOSE,RANDOM 71 mg/dL (74-106); SGPT/ALT 47 U/L (13-61); SODIUM 140 mmol/L (136-145); TOT PROT 7.6 g/dl (6.4-8.2)
[2018-08-05 21:09] LABS: POTASSIUM 4.3 mmol/L (3.5-5.1); SGOT/AST 49 U/L (15-37)
--- NOTE | 2018-08-06 01:03 | PN ---
Teaching Attending Note Name of Resident: Parminder Morales ATTENDING PHYSICIAN STATEMENT I saw and evaluated the patient. I reviewed the resident's note and discussed the case with the resident. I agree with the resident's findings and plan as documented. SUBJECTIVE: Patient is a 72 year old man with history of hypertension, hyperlipidemia, diabetes type II, coronary artery disease with four-vessel CABG in 1999, arrhythmia (aflutter vs. afib s/p ablations x 2), h/o bladder cancer, PAD s/p stenting who presents to the ER from [facility] s/p fall. He was discharged from this facility earlier today. He arrived at [facility] and fell and was sent back to the ER. This patient is confused at baseline - as per [facility] report. He had prolonged delirium for which Neuro work up included MRI which demonstrated - resolving sub acute periventricular infarct. Fluoroscopic LP performed 08/01 and there was not enough fluid to send for analysis (limbic encephalitis had been on the differential). The patient per chart review was apparently independent as of 1 month ago and was not previously noted to have dementia. OBJECTIVE: Alert but confused Vital Signs Period Temp Pulse Resp BP Sys/Street Pulse Ox Last 24 Hr 97.9 F 71 20 156/79 96 HEENT: No Jaundice, eye redness or discharge, PERRLA, EOMI. Normocephalic, atraumatic. External ears are normal and hearing is grossly intact. No nasal discharge. Neck: Supple, nontender. No palpable adenopathy or thyromegaly. No JVD Chest: Good effort. Clear to auscultation and percussion. Heart: Irregular. No S3, rub or murmur Abdomen: Not distended, soft, nontender and no HSM. No rebound or guarding. Normoactive bowel sounds. Ext: Peripheral pulses intact. No leg edema. Skin: Warm and dry. No petechiae, rash or ecchymosis. Neuro: Alert. Oriented to person. Confused. Moves all limbs. Unable to follow precise commands. Gait not tested for safety reasons. Home Medications Medication Instructions Recorded Aspirin [ASA -] 81 mg PO DAILY 07/15/18 Atorvastatin Ca [Lipitor] 10 mg PO HS #30 tablet 07/29/18 Nystatin Cream [Mycostatin Cream -] 1 applic TP Q12H PRN applic 07/29/18 Olanzapine [ZyPREXA -] 10 mg PO BID #60 tablet 07/29/18 Abnormal Lab Results 08/05/18 08/05/18 08/05/18 20:13 20:20 20:20 WBC 10.1 H RBC 5.71 H Absolute Neuts (auto) 8.1 H Nucleated RBC % 1 H PT with INR 17.00 H INR 1.44 H Carbon Dioxide Random Glucose AST Albumin Urine Protein 2+ H Urine Ketones 1+ H Urine Blood 1+ H 08/05/18 20:20 WBC RBC Absolute Neuts (auto) Nucleated RBC % PT with INR INR Carbon Dioxide 20 L Random Glucose 71 L AST 49 H Albumin 3.2 L Urine Protein Urine Ketones Urine Blood ASSESSMENT AND PLAN: 1. Fall - Cause unclear. Circumstances surrounding the fall are unclear. Will get more information from the NH. Head and Neck CT do not show any acute pathology or fracture. No limb or hip tenderness to suggest fracture. Based on records, his mental status is not significantly different from what it was when he was discharged earlier today. Will monitor on telemetry, do neurochecks, implement fall precautions and reconsult neurology. 2. DM - Implement sliding scale insulin regimen. Provide comprehensive diabetes care with patient teaching and counseling about the importance of euglycemia, eye care and foot care. 3. DVT prophylaxis - Lovenox 40 mg SQ q 24 hours. 4. Advance directives - Full code
--- NOTE | 2018-08-06 01:27 | HP ---
CHIEF COMPLAINT: AMS, Fall PCP: Sylvester HISTORY OF PRESENT ILLNESS: 72 yo male with PMH HTN, HLD, NIDDM, CAD s/p 4 vessel CABG 1999, A-fib/flutter s /p 2 ablations, History of bladder cancer, PAD s/p stent admitted from [facility] following a fall with altered mentation. Of note he was discharged earlier today following full neurological evaluation for his change in mental status as prior to his recent admission he was normal and self sufficient at baseline with no history of dimentia. He was cleared by neuro without an official diagnosis with plans for further outpatient follow up and hopefully mental status improvement with time. He was noted to have a fall and was sent back to the ED for evaluation. ED providers requested overnight observation with neuro eval and clearance as it is unclear if he is at the mental status baseline he was discharged at earlier today. He currently denies any symptoms or complaints at this time. He answers questions somewhat appropriately though regularly gets distracted and at one point looked at the tv and asked "who is that lady?" ER course was notable for: (1) CT head and Cervical spine negative for acute pathology, fracture, or bleeding (2) (3) Recent Travel: none PAST MEDICAL HISTORY: HTN, HLD, NIDDM, CAD s/p 4 vessel CABG 1999, A-fib/flutter s/p 2 ablations, History of bladder cancer, PAD s/p stent PAST SURGICAL HISTORY: CABG, peripheral stenting, cardiac ablations Social History: Smoking: unknown Alcohol: unknown Drugs: unknown Family History: Allergies No Known Drug Allergies Allergy (Verified 08/05/18 19:05) ADHESIVE TAPE Adverse Reaction (Intermediate, Uncoded 08/05/18 19:05) RASH - IF LEFT ON SKIN FOR LONG PERIODS OF TIME (3-4 DAYS) HOME MEDICATIONS: Home Medications Medication Instructions Recorded Aspirin [ASA -] 81 mg PO DAILY 07/15/18 Atorvastatin Ca [Lipitor] 10 mg PO HS #30 tablet 07/29/18 Nystatin Cream [Mycostatin Cream -] 1 applic TP Q12H PRN applic 07/29/18 Olanzapine [ZyPREXA -] 10 mg PO BID #60 tablet 07/29/18 REVIEW OF SYSTEMS Unable to obtain PHYSICAL EXAMINATION Vital Signs - 24 hr 08/05/18 19:05 Temperature 97.9 F Pulse Rate 71 Respiratory 20 Rate Blood Pressure 156/79 O2 Sat by Pulse 96 Oximetry (%) GENERAL: Alert but fully disoriented, no acute distress, laying on stretcher with gown pulled up and genitals exposed HEAD: Normocephalic, atraumatic. EYES: PERRL, no scleral icterus EARS, NOSE, THROAT: oropharynx clear without exudates. Moist mucous membranes. NECK: supple without lymphadenopathy LUNGS: CTA b/l, no crackles or wheezes HEART: Regular rate and rhythm, normal S1 and S2 without murmur ABDOMEN: Soft, nontender to palpation, normoactive bowel sounds MUSCULOSKELETAL: No bony deformities or tenderness. EXTREMITIES: No peripheral edema. NEUROLOGICAL: Cranial nerves II-XII grossly intact. No gross neurological deficits though unable to cooperate with full neurological evaluation Laboratory Results - last 24 hr 08/05/18 08/05/18 08/05/18 20:13 20:20 20:20 WBC 10.1 H RBC 5.71 H Hgb 16.4 Hct 47.8 MCV 83.8 MCH 28.8 MCHC 34.4 RDW 13.9 Plt Count 213 D MPV 9.6 Absolute Neuts (auto) 8.1 H Neutrophils % 80.6 D Lymphocytes % 12.2 D Monocytes % 5.0 Eosinophils % 1.6 Basophils % 0.6 Nucleated RBC % 1 H PT with INR 17.00 H INR 1.44 H PTT (Actin FS) 31.0 Sodium Potassium Chloride Carbon Dioxide Anion Gap BUN Creatinine Creat Clearance w eGFR Random Glucose Calcium Total Bilirubin AST ALT Alkaline Phosphatase Total Protein Albumin Urine Color Yellow Urine Appearance Clear Urine pH 5.0 Ur Specific [place] 1.016 Urine Protein 2+ H Urine Glucose (UA) Negative Urine Ketones 1+ H Urine Blood 1+ H Urine Nitrite Negative Urine Bilirubin Negative Urine Urobilinogen Negative Ur Leukocyte Esterase Negative Urine WBC (Auto) 1 Urine RBC (Auto) <1 Urine Bacteria Rare Urine Mucus Rare Urine Yeast Rare Blood Type Antibody Screen 08/05/18 08/05/18 20:20 20:20 WBC RBC Hgb Hct MCV MCH MCHC RDW Plt Count MPV Absolute Neuts (auto) Neutrophils % Lymphocytes % Monocytes % Eosinophils % Basophils % Nucleated RBC % PT with INR INR PTT (Actin FS) Sodium 140 Potassium 4.3 Chloride 106 Carbon Dioxide 20 L Anion Gap 14 BUN 18 Creatinine 0.6 Creat Clearance w eGFR > 60 Random Glucose 71 L Calcium 9.0 Total Bilirubin 1.0 AST 49 H ALT 47 Alkaline Phosphatase 86 Total Protein 7.6 Albumin 3.2 L Urine Color Urine Appearance Urine pH Ur Specific [place] Urine Protein Urine Glucose (UA) Urine Ketones Urine Blood Urine Nitrite Urine Bilirubin Urine Urobilinogen Ur Leukocyte Esterase Urine WBC (Auto) Urine RBC (Auto) Urine Bacteria Urine Mucus Urine Yeast Blood Type A POSITIVE Antibody Screen Negative ASSESSMENT/PLAN: 72 yo male with PMH HTN, HLD, NIDDM, CAD s/p 4 vessel CABG 1999, A-fib/flutter s /p 2 ablations, History of bladder cancer, PAD s/p stent admitted from [facility] following a fall with altered mentation Fall Evaluation -Pt with no signs of trauma on exam -CT head and Cervical spine noted without bleed or fracture -Fall risk precautions Altered Mental Status and Confusion -Baseline unknown at this time, though per chart review pt seems similar to AM prior to d/c -Neurological evaluation for d/c optimization back to [facility] -Full neurological workup reviewed from prior admission without a d/c diagnosis HLD -Lipitor 10 mg PO HS NIDDM -BGMs ACHS -Insulin sliding scale if coverage is required DVT Prophylaxis -Lovenox 40 mg SQ Daily FEN -Fluids: none -Electrolytes: No electrolyte abnormalities, BMP in AM -Nutrition: Na controlled diabetic diet Disposition Observation Visit type - Emergency Visit Emergency Visit: Yes ED Registration Date: 08/06/18 Care time: The patient presented to the Emergency Department on the above date and was hospitalized for further evaluation of their emergent condition. - New Patient This patient is new to me today: Yes Date on this admission: 08/06/18 - Critical Care Critical Care patient: No
[2018-08-06] MEDS ORDERED: NYSTATIN 100,000 UNIT/GM TOPICAL CREAM 15 GM TUBE TP PRN (01:31)
[2018-08-06] MEDS: INSULIN SLIDING SCALE (NOVOLOG) 1 VIAL SQ SCH ×2 (06:00→11:35)
[2018-08-06 08:30] LABS: ANION GAP 13 MMOL/L (8-16); BLOOD UREA NITROGEN 20 mg/dL (7-18); CALCIUM 8.8 mg/dL (8.5-10.1); CHLORIDE 107 mmol/L (98-107); CO2 20 mmol/L (21-32); CREATININE 0.7 mg/dL (0.55-1.3); GLUCOSE,RANDOM 65 mg/dL (74-106); MAGNESIUM 1.7 mg/dL (1.8-2.4); PHOSPHOROUS 3.1 mg/dL (2.5-4.9); SODIUM 140 mmol/L (136-145)
[2018-08-06 08:48] LABS: HEMATOCRIT 45.4 % (35.4-49); HEMOGLOBIN 15.8 GM/dL (11.7-16.9); MCH 29.3 pg (25.7-33.7); MCHC 34.8 g/dl (32.0-35.9); MEAN CELL VOLUME 84.1 fl (80-96); MEAN PLT VOLUME 10.2 fl (7.5-11.1); PLATELET COUNT 205 K/MM3 (134-434); RDW 13.7 % (11.9-15.9); WHITE BLOOD COUNT 9.2 K/mm3 (4.0-10.0)
[2018-08-06] MEDS ORDERED: ASPIRIN 81 MG CHEWABLE TABLETS PO SCH (10:00)
[2018-08-06] MEDS ORDERED: OLANZapine 10 MG TABLET PO SCH (10:00)
[2018-08-06] MEDS ORDERED: ENOXAPARIN NA (PORCINE) 40 MG/0.4 ML DISP.SYRIN SQ SCH (10:00)
[2018-08-06] MEDS ORDERED: PT OWN MED DRAWER 7, Y5N ONE (11:27)
--- NOTE | 2018-08-06 12:29 | EKG ---
Test Reason : Blood Pressure : / mmHG Vent. Rate : 076 BPM Atrial Rate : 076 BPM P-R Int : 122 ms QRS Dur : 124 ms QT Int : 450 ms P-R-T Axes : -14 014 052 degrees QTc Int : 506 ms SINUS RHYTHM WITH OCCASIONAL PREMATURE VENTRICULAR COMPLEXES SEPTAL INFARCT (CITED ON OR BEFORE 09-APR-2012) ABNORMAL ECG WHEN COMPARED WITH ECG OF 14-JUL-2018 19:14, PREMATURE VENTRICULAR COMPLEXES ARE NOW PRESENT PREMATURE ATRIAL COMPLEXES ARE NO LONGER PRESENT Confirmed by REECE CLAUDIO, SELINA ([id number]) on 08/06/2018 12:29:08 PM Referred By: Confirmed By:SELINA NEWELL MD
--- NOTE | 2018-08-06 13:40 | DS ---
Physical Examination Vital Signs: Vital Signs Temperature 98.2 F 08/06/18 07:09 Pulse Rate 78 08/06/18 07:09 Respiratory Rate 20 08/06/18 07:09 Blood Pressure 138/74 08/06/18 07:09 O2 Sat by Pulse Oximetry (%) 95 08/06/18 03:56 Constitutional: Yes: Well Nourished, No Distress, Calm Cardiovascular: Yes: Regular Rate and Rhythm. No: Murmur, Rub Respiratory: Yes: WNL, Regular, CTA Bilaterally Gastrointestinal: Yes: WNL, Normal Bowel Sounds, Soft. No: Distention, Tenderness Renal/: Yes: WNL Extremities: Yes: WNL Edema: No Neurological: Yes: Alert, Confusion (unchanged since prev discharge), Pre- Existing Deficit. No: Facial Droop, Lethargy, Weakness Psychiatric: Yes: Alert Labs: CBC, BMP 08/06/18 06:15 08/06/18 06:15 Discharge Summary Reason For Visit: ALTERED MENTAL STATUS,FALL Current Active Problems Altered mental status (Acute) Fall (Acute) Hospital Course: 72 year old male recently discharged yesterday to [facility] was brought back into the hospital for evaluation of fall. Head/cervical spine CT negative. All work up negative. No acute changes in pt from discharge yesterday. Pt is medically stable for discharge to SNF. Advise outpt neuro work up. 32 minutes spent in discharge planning Condition: Stable - Instructions Diet, Activity, Other Instructions: FALL PRECAUTIONS Referrals: Cosme Phan MD [Primary Care Provider] - Milo Allen DO [Staff Physician] - Disposition: [facility]IOR [facility]ARE FACILITY - Home Medications Comprehensive Discharge Medication List: Ambulatory Orders Aspirin [ASA -] 81 mg PO DAILY 07/15/18 Atorvastatin Ca [Lipitor] 10 mg PO HS #30 tablet 07/29/18 Nystatin Cream [Mycostatin Cream -] 1 applic TP Q12H PRN applic 07/29/18 Olanzapine [ZyPREXA -] 10 mg PO BID #60 tablet 07/29/18
[2018-08-06 17:11] VITALS: BP 142/75; PULSE 81; TEMP 97.5
[2018-08-06] MEDS ORDERED: ATORVASTATIN CA 10 MG TABLET (FP) PO SCH (22:00)
== END 2018-08-06 17:20 ==
LOC: JER 18:49 → JERBED 08-06 00:48 → J8W 08-06 03:26
PROVIDERS: ADMIT Internal Medicine; ATTEND Internal Medicine
PROC: 3E013GC Introduction of Other Therapeutic Substance into Subcutaneous Tissue, Percutaneous Approach (ICD-10-PCS; principal; 2018-08-06)
DX: R41.82 Altered mental status, unspecified (principal); W18.39XA Other fall on same level, initial encounter; Y93.89 Activity, other specified; Y92.128 Other place in nursing home as the place of occurrence of the external cause; I25.10 Atherosclerotic heart disease of native coronary artery without angina pectoris; I10 Essential (primary) hypertension; Z95.1 Presence of aortocoronary bypass graft; I73.9 Peripheral vascular disease, unspecified; E11.9 Type 2 diabetes mellitus without complications; Z79.84 Long term (current) use of oral hypoglycemic drugs; Z85.51 Personal history of malignant neoplasm of bladder; Z95.828 Presence of other vascular implants and grafts; Z86.73 Personal history of transient ischemic attack (TIA), and cerebral infarction without residual deficits; Z86.79 Personal history of other diseases of the circulatory system
CPT/HCPCS: 36415; 70450-TC; 71045-TC-FY; 72125-TC; 80048; 80053; 81003; 81015; 82550; 82962; 83735; 84100; 84484; 85025; 85027; 85610; 85730; 86850; 86900; 86901; 87086; 93005; 93010; 96372; 99285-25; G0378

== ENCOUNTER 2018-08-24 14:36 | Inpatient (IN) | payer OTHER, BC ==
[2018-08-24 14:58] VITALS: BMI 30.2
--- NOTE | 2018-08-24 14:58 | PDOC ---
History of Present Illness - General Chief Complaint: Lethargy Stated Complaint: ALTERED MENTAL STATUS Time Seen by Provider: 08/24/18 14:53 - History of Present Illness Initial Comments: 08/24/18 16:34 The patient is a 72 year old male with a history of a HLD, DM, Depression, UTI who presents for evaluation of altered mental status. Per the patient's residential, they note that the patient has been having decreased appetite and increased lethargy over the past 3 days prompting his presentation to the ED for further evaluation. They state that the patient has been on a d5 in ns drip over the past 3 days without improvement in his symptoms. ROS is unobtainable due to the patient's altered mental status. Past History - Past Medical History Allergies/Adverse Reactions: Allergies Allergy/AdvReac Type Severity Reaction Status Date / Time No Known Allergies Allergy Verified 08/24/18 14:50 Home Medications: Ambulatory Orders Acetaminophen [Tylenol] 650 mg PO QID PRN 08/24/18 Aspirin 81 mg PO DAILY 08/24/18 Atorvastatin Ca [Lipitor] 10 mg PO HS 08/24/18 Enoxaparin [Lovenox -] 40 mg SQ DAILY 08/24/18 Ergocalciferol (Vitamin D2) [Vitamin D2] 50,000 unit PO WEEKLY 08/24/18 Insulin Lispro [Humalog] unit SQ 08/24/18 COPD: No Diabetes: Yes Disorders: Yes (uti) Hypercholesterolemia: Yes Psychiatric Problems: Yes (depression) Other medical history: chronic pain - Suicide/Smoking/Psychosocial Hx Smoking History: Unknown if ever smoked Have you smoked in the past 12 months: No Information on smoking cessation initiated: No Hx Alcohol Use: No Drug/Substance Use Hx: No Review of Systems - Review of Systems Able to Perform ROS?: No (Altered Mental Status) *Physical Exam - Vital Signs Last Vital Signs Temp Pulse Resp BP Pulse Ox 100.3 F H 79 25 H 100/68 95 08/24/18 14:52 08/24/18 14:52 08/24/18 14:52 08/24/18 14:52 08/24/18 14:52 - Physical Exam Comments: 08/24/18 16:37 General Appearance: Nourished. No Apparent Distress HEENT: EOMI, DENNIS. No Pharyngeal Erythema, Tonsillar Exudate, Tonsillar Erythema Neck: No Cervical Lymphadenopathy Respiratory/Chest: Lungs Clear, Normal Breath Sounds. No Crackles, Rales, Rhonchi, Wheezing Cardiovascular: Regular Rhythm, Regular Rate. No Murmur, Gallops, Rubs Gastrointestinal/Abdominal: Normal Bowel Sounds, Soft. No Guarding, Rebound, Tenderness Musculoskeletal: No CVA Tenderness Extremity: Normal Capillary Refill Integumentary: Normal Color, Dry, Warm Neurologic: Lethargic, Response to painful stimulus. Moving all extremities. Moderate Sedation - Procedure Monitoring Vital Signs: Procedure Monitoring Vital Signs Temperature 100.3 F H 08/24/18 14:52 Pulse Rate 79 08/24/18 14:52 Respiratory Rate 25 H 08/24/18 14:52 Blood Pressure 100/68 08/24/18 14:52 O2 Sat by Pulse Oximetry (%) 95 08/24/18 14:52 ED Treatment Course - LABORATORY CBC & Chemistry Diagram: 08/24/18 15:15 08/24/18 15:30 Medical Decision Making - Medical Decision Making 08/24/18 16:38 The patient is a 72 year old male with a history of a HLD, DM, Depression, UTI who presents for evaluation of altered mental status. Differential includes but is not limited to: Sepsis, UTI, Pneumonia, Intracranial process, Infectious , Metabolic Derangement. Given the patient's history and physical exam, we will obtain a cbc, cmp, lactate, ua, urine culture, troponin, blood cultures, chest plain film, head ct to evaluate further. We will treat with iv fluids, tylenol and continue to monitor and reassess while here in the ED. 08/24/18 20:28 CBC is unremarkable. CMP demonstrates elevated sodium to 172. UA demonstrates positive nitrites, positive leuk esterase, elevated wbc consistent with a UTI. Chest plain film is unremarkable. Head CT is unremarkable as preliminarily read by our early education teacher radiologist. The patient will require admission for further management. We will treat with ceftriaxone and IV fluids. We discussed the case with the hospitalist team who accepted the patient for admission. *DC/Admit/Observation/Transfer Diagnosis at time of Disposition: Hypernatremia UTI (urinary tract infection) Qualifiers: Urinary tract infection type: site unspecified Hematuria presence: without hematuria Qualified Code(s): N39.0 - Urinary tract infection, site not specified Altered mental status Qualifiers: Altered mental status type: unspecified Qualified Code(s): R41.82 - Altered mental status, unspecified - Discharge Dispostion Condition at time of disposition: Stable Decision to Admit order: Yes - Referrals - Patient Instructions - Post Discharge Activity
[2018-08-24] MEDS ORDERED: SODIUM CHLORIDE 1,000 ML IV STA ×2 (15:54→17:38)
[2018-08-24] MEDS ORDERED: ACETAMINOPHEN 1000 MG/100 ML VIAL (NON FORMULARY) IVPB ONE (15:56)
[2018-08-24 15:57] LABS: VENOUS PC02 38.5 mmHg (38-52); VENOUS PH 7.38 (7.32-7.42); VENOUS PO2 55.2 mmHg (28-48)
[2018-08-24] MEDS ORDERED: ACETAMINOPHEN INJECTION 100 ML IVPB ONE (16:01)
[2018-08-24 16:08] LABS: BASO % 0.2 % (0-2.0); EOS % 0.7 % (0-4.5); HEMATOCRIT 50.7 % (35.4-49); HEMOGLOBIN 16.7 GM/dL (11.7-16.9); LYMPH % 11.5 % (8-40); MCH 28.8 pg (25.7-33.7); MCHC 32.9 g/dl (32.0-35.9); MEAN CELL VOLUME 87.3 fl (80-96); MEAN PLT VOLUME 10.8 fl (7.5-11.1); MONO % 5.2 % (3.8-10.2); NEUT % 82.4 % (42.8-82.8); PLATELET COUNT 115 K/MM3 (134-434); RBC 5.82 M/mm3 (4.00-5.60); RDW 15.5 % (11.9-15.9); WHITE BLOOD COUNT 8.4 K/mm3 (4.0-10.0)
[2018-08-24 16:23] LABS: INR 1.84 (0.83-1.09); PROTHROMBIN TIME (PATIENT) 21.8 SEC (9.7-13.0)
[2018-08-24 16:26] LABS: ACTIVATED PTT 38.8 SECONDS (25.2-36.5)
[2018-08-24 16:41] LABS: ALBUMIN 2.8 g/dl (3.4-5.0); ALK PHOS 113 U/L (45-117); ANION GAP 5 MMOL/L (8-16); BILIRUBIN,TOTAL 0.6 mg/dL (0.2-1); BLOOD UREA NITROGEN 71 mg/dL (7-18); CALCIUM 8.1 mg/dL (8.5-10.1); CHLORIDE 146 mmol/L (98-107); CO2 22 mmol/L (21-32); CREATININE 1.8 mg/dL (0.55-1.3); GLUCOSE,RANDOM 143 mg/dL (74-106); POTASSIUM 3.7 mmol/L (3.5-5.1); SGOT/AST 121 U/L (15-37); SGPT/ALT 166 U/L (13-61); TOT PROT 7.2 g/dl (6.4-8.2)
--- NOTE | 2018-08-24 16:46 | PDOC ---
Attending Attestation - Resident Resident Name: [employer]uk[employer] - ED Attending Attestation I have performed the following: I have examined & evaluated the patient, The case was reviewed & discussed with the resident, I agree w/resident's findings & plan, Exceptions are as noted - HPI HPI: 08/24/18 16:44 The patient is a 72 year old male, with a significant past medical history of DM , HLD, Depression, UTI, who presents to the emergency department with, 3 days of altered mental status. As per [facility], the patient has been increasingly lethargic and had a decreased appetite. [place] notes giving him D5 and NS, without relief prompting his visit to the ER. Pt unable to contribute additional history. Allergies: NKDA Past surgical history: None reported. Primary Care Physician: Dr. Phan - Physicial Exam PE: 08/24/18 16:45 "GENERAL: Awake, alert, in no acute distress. HEAD: No signs of trauma EYES: PERRLA, EOMI, sclera anicteric, conjunctiva clear ENT: Auricles normal inspection, hearing grossly normal, nares patent, oropharynx clear without exudates. Moist mucosa NECK: Nontender, no stepoffs, Normal ROM, supple, no lymphadenopathy, JVD, or masses LUNGS: Breath sounds equal, clear to auscultation bilaterally. No wheezes, and no crackles HEART: Regular rate and rhythm, normal S1 and S2, no murmurs, rubs or gallops ABDOMEN: Soft, nontender, normoactive bowel sounds. No guarding, no rebound. No masses EXTREMITIES: Normal range of motion, no edema. No clubbing or cyanosis. No cords, erythema, or tenderness NEUROLOGICAL: Cranial nerves II through XII intact. 5/5 strength and sensation in all extremities, Normal speech, normal gait, normal cerebellar function SKIN: Warm, Dry, normal turgor, no rashes or lesions noted. - Medical Decision Making 08/24/18 16:47 72 M with lethargy and AMS from [place], found to be febrile in ED. Will evaluate for sepsis. Also obtain head CT to r/o intracranial process. - labs, cultures - CXR, UA - IVF, tylenol - Abx 08/24/18 17:29 Labs notable for RIAZ Cr 1.8 UA consistent with UTI Will start pt on ceftriaxone, admit to hospital 08/24/18 17:38 Na 172 Will continue IVF. Start D5W infusion.
[2018-08-24 17:03] LABS: URINE APPEARANCE CLOUDY; URINE BILIRUBIN NEGATIVE (<2.0 mg/dL); URINE COLOR DKYELLOW; URINE GLUCOSE (UA) NEGATIVE (NEGATIVE); URINE KETONE NEGATIVE (NEGATIVE); URINE LEUK ESTERASE 2+ (NEGATIVE); URINE NITRITE POSITIVE (NEGATIVE); URINE PROTEIN 1+ (NEGATIVE); URINE UROBILINOGEN NEGATIVE mg/dL (0.2-1.0)
[2018-08-24 17:21] LABS: URINE BACTERIA MANY /hpf (NONE SEEN)
[2018-08-24] MEDS ORDERED: CEFTRIAXONE 1 GM in DEXTROSE 5%-WATER - 100 ML IVPB ONE (17:28)
[2018-08-24 17:34] LABS: SODIUM 172 mmol/L (136-145)
[2018-08-24] MEDS ORDERED: DEXTROSE 5%-WATER - 1,000 ML IV SCH ×2 (17:45→21:08)
[2018-08-24] MEDS ORDERED: CEFTRIAXONE 1 GM/50 ML BAG ONE (18:15)
--- NOTE | 2018-08-24 19:34 | PN ---
Teaching Attending Note Name of Resident: Tiffany Tejada ATTENDING PHYSICIAN STATEMENT I saw and evaluated the patient. I reviewed the resident's note and discussed the case with the resident. I agree with the resident's findings and plan as documented. SUBJECTIVE: Patient is a 72 year old man, with a significant past medical history of NIDDM, HTN, CABG, PAD with stenting, Bladder cancer, Afib, HLD, Depression, UTI, who presents to the ER with, 3 days of altered mental status. As per [facility], the patient has been increasingly lethargic and had a decreased appetite. [facility] and [facility], without relief prompting his visit to the ER. Patient unable to contribute additional history. Got 2 liters of NS IV bolus in the ER. OBJECTIVE: Somnolent but arousable Vital Signs Period Temp Pulse Resp BP Sys/Street Pulse Ox Last 24 Hr 100.3 F 72-79 18-25 100-127/68-74 94-95 HEENT: No Jaundice, eye redness or discharge, PERRLA, EOMI. Normocephalic, atraumatic. External ears are normal and hearing is grossly intact. No nasal discharge. Neck: Supple, nontender. No palpable adenopathy or thyromegaly. No JVD Chest: Good effort. Clear to auscultation and percussion. Heart: Regular. No S3, rub or murmur Abdomen: Not distended, soft, nontender and no HSM. No rebound or guarding. Normoactive bowel sounds. Ext: Peripheral pulses intact. No leg edema. Skin: Warm and dry. No petechiae, rash or ecchymosis. Neuro: Somnolent but arousable. Oriented person. CN 2-12 grossly intact. Sensation grossly intact in all four extremities and DTR are symmetric. Current Medications Generic Name Dose Route Start Last Admin Trade Name Freq PRN Reason Stop Dose Admin Dextrose 1,000 mls @ 100 mls/hr 08/24/18 17:45 D5w - IV .[facility]10H [facility] Home Medications Medication Instructions Recorded Acetaminophen [Tylenol] 650 mg PO QID PRN 08/24/18 Aspirin 81 mg PO DAILY 08/24/18 Atorvastatin Ca [Lipitor] 10 mg PO HS 08/24/18 Enoxaparin [Lovenox -] 40 mg SQ DAILY 08/24/18 Ergocalciferol (Vitamin D2) 50,000 unit PO WEEKLY 08/24/18 [Vitamin D2] Insulin Lispro [Humalog] unit SQ 08/24/18 Abnormal Lab Results 08/24/18 08/24/18 08/24/18 15:15 15:15 15:30 RBC 5.82 H Hct 50.7 H Plt Count 115 L PT with INR 21.80 H INR 1.84 H PTT (Actin FS) 38.8 H POC VBG pO2 55.2 H Sodium Chloride Anion Gap BUN Creatinine Random Glucose Calcium AST ALT Albumin Urine Protein Urine Blood Ur Leukocyte Esterase 08/24/18 08/24/18 15:30 16:35 RBC Hct Plt Count PT with INR INR PTT (Actin FS) POC VBG pO2 Sodium 172 H* Chloride 146 H Anion Gap 5 L BUN 71 H Creatinine 1.8 H Random Glucose 143 H Calcium 8.1 L AST 121 H ALT 166 H Albumin 2.8 L Urine Protein 1+ H Urine Blood 2+ H Ur Leukocyte Esterase 2+ H ASSESSMENT AND PLAN: 1. Toxic metabolic encephalopathy due to UTI/Hypernaremia - AMS likely due to UTI and/or hypernatremia. No acute pathology on head CT and CXR. Was recently hospitalized on 07/14/18 and urine grew ESBL E.Coli. Will treat wit IV meropenem 1 gm q 8 hours and implement contact isolation. Will give IV D5W and monitor serum sodium q 4 hours to avoid a rapid drop in serum sodium. Dehydration due to poor oral intake explains hypernatremia and erythrocytosis. Elevated troponin likely due to RIAZ and/or demand ischemia. No acute changes of ischemia on EKG. Will trend troponin and get upper abdominal sonogram and hepatitis profile to investigate elevated LFTs and thrombocytopenia. 2. Hypoalbuminemia - Possibly due to combined effects of malnutrition, proteinuria and inflammation associated with comorbid chronic conditions. Will ensure adequate dietary protein intake and also consult assistant professor of education. 3. DM - For now, we will hold the home diabetes drugs and implement sliding scale insulin regimen. Provide comprehensive diabetes care with patient teaching and counseling about the importance of euglycemia, eye care and foot care. 4. RIAZ - Likely due to dehydration. Will hydrate him, get kidney sonogram and avoid nephrotoxic agents such as NSAIDS, aminoglycosides, contrast dyes and certain Alternative medicine products. 5. DVT prophylaxis - Heparin 5000u sq tid. 6. Advance directives - Full code
--- NOTE | 2018-08-24 21:31 | HP ---
CHIEF COMPLAINT: Lethargy, Confusion PCP: Dr. Phan HISTORY OF PRESENT ILLNESS: 72 y/o male with PMHx of HTN, HLD, NIDDM, CAD s/p 4 vessel CABG 1999, A-fib/ flutter s/p 2 ablations, Hx of bladder cancer, PAD s/p stent admitted from [facility] for Lethargy. Patient is responsive to painful stimuli and able to open his eyes however he is nonverbal. The staff at [facility] says the patient has had dereased appetite, lethargy, and weakness for the past 3 days. The medical staff there placed th patient on D5 and NS drips, however the patient has not imporved and the patient was sent to [facility] ED. As per the [facility] records, patient has not had any other recent complaints. He is confused at baseline as per [facility] Staff. Patient was recently discharged from [facility] on 08/06 for Falls and UTI. ER course was notable for: (1) 2L NS, Started on D5 (2) Head CT (3) Recent Travel: None as per [facility] Staff PAST MEDICAL HISTORY: HTN, HLD, NIDDM, CAD s/p 4 vessel CABG 1999, A-fib/flutter s/p 2 ablations, Hx of bladder cancer, PAD s/p stent PAST SURGICAL HISTORY: CABG, peripheral stenting, cardiac ablations Social History: Smoking: Unknown Alcohol: Unknown Drugs: Unknown Ambulation: Bed Bound as per [facility] Staff Residence: [facility] Family History: Unknown Allergies No Known Allergies Allergy (Verified 08/24/18 14:50) HOME MEDICATIONS: Home Medications Medication Instructions Recorded Acetaminophen [Tylenol] 650 mg PO QID PRN 08/24/18 Aspirin 81 mg PO DAILY 08/24/18 Atorvastatin Ca [Lipitor] 10 mg PO HS 08/24/18 Enoxaparin [Lovenox -] 40 mg SQ DAILY 08/24/18 Ergocalciferol (Vitamin D2) 50,000 unit PO WEEKLY 08/24/18 [Vitamin D2] Insulin Lispro [Humalog] unit SQ 08/24/18 REVIEW OF SYSTEMS Unable to obtain PHYSICAL EXAMINATION Vital Signs - 24 hr 08/24/18 08/24/18 08/24/18 14:52 15:30 18:18 Temperature 100.3 F H Pulse Rate 79 Pulse Rate [ 72 Right Radial] Respiratory 25 H 18 Rate Blood Pressure 100/68 Blood Pressure 127/74 [Left Arm] O2 Sat by Pulse 95 95 94 L Oximetry (%) 08/24/18 19:30 Temperature Pulse Rate Pulse Rate [ 72 Right Radial] Respiratory 20 Rate Blood Pressure Blood Pressure 123/65 [Left Arm] O2 Sat by Pulse 98 Oximetry (%) GENERAL: Awake, alert to painful stimuli, Lethargic HEAD: NCAT EYES: PERRL EARS, NOSE, THROAT: Dry mucous membranes NECK: Supple without lymphadenopathy, JVD LUNGS: CTA b/l, No wheezes, no crackles. HEART: Regular rate and rhythm, normal S1 and S2 without murmur ABDOMEN: Soft, + bowel sounds, no guarding EXTREMITIES: 2+ pulses, No peripheral edema. NEUROLOGICAL: Unable to perform a complete neurological exam as patient is lethargic and does not follow command Laboratory Results - last 24 hr 08/24/18 08/24/18 08/24/18 15:15 15:15 15:15 WBC 8.4 RBC 5.82 H Hgb 16.7 Hct 50.7 H MCV 87.3 MCH 28.8 MCHC 32.9 RDW 15.5 Plt Count 115 L MPV 10.8 Absolute Neuts (auto) 6.9 Neutrophils % 82.4 Lymphocytes % 11.5 Monocytes % 5.2 Eosinophils % 0.7 Basophils % 0.2 Nucleated RBC % 0 PT with INR INR PTT (Actin FS) VBG pH 7.38 POC VBG pCO2 38.5 POC VBG pO2 55.2 H Mixed VBG HCO3 22.3 Sodium Potassium Chloride Carbon Dioxide Anion Gap BUN Creatinine Creat Clearance w eGFR Random Glucose Lactic Acid 1.6 Calcium Total Bilirubin AST ALT Alkaline Phosphatase Troponin I Total Protein Albumin Urine Color Urine Appearance Urine pH Ur Specific [place] Urine Protein Urine Glucose (UA) Urine Ketones Urine Blood Urine Nitrite Urine Bilirubin Urine Urobilinogen Ur Leukocyte Esterase Urine WBC (Auto) Urine RBC (Auto) Urine Bacteria Influenza A (Rapid) Influenza B (Rapid) 08/24/18 08/24/18 08/24/18 15:15 15:30 15:30 WBC RBC Hgb Hct MCV MCH MCHC RDW Plt Count MPV Absolute Neuts (auto) Neutrophils % Lymphocytes % Monocytes % Eosinophils % Basophils % Nucleated RBC % PT with INR 21.80 H INR 1.84 H PTT (Actin FS) 38.8 H VBG pH POC VBG pCO2 POC VBG pO2 Mixed VBG HCO3 Sodium 172 H* Potassium 3.7 Chloride 146 H Carbon Dioxide 22 Anion Gap 5 L BUN 71 H Creatinine 1.8 H Creat Clearance w eGFR 37.17 Random Glucose 143 H Lactic Acid Calcium 8.1 L Total Bilirubin 0.6 AST 121 H ALT 166 H Alkaline Phosphatase 113 Troponin I 0.05 Total Protein 7.2 Albumin 2.8 L Urine Color Urine Appearance Urine pH Ur Specific [place] Urine Protein Urine Glucose (UA) Urine Ketones Urine Blood Urine Nitrite Urine Bilirubin Urine Urobilinogen Ur Leukocyte Esterase Urine WBC (Auto) Urine RBC (Auto) Urine Bacteria Influenza A (Rapid) Influenza B (Rapid) 08/24/18 08/24/18 08/24/18 16:35 19:34 20:30 WBC RBC Hgb Hct MCV MCH MCHC RDW Plt Count MPV Absolute Neuts (auto) Neutrophils % Lymphocytes % Monocytes % Eosinophils % Basophils % Nucleated RBC % PT with INR INR PTT (Actin FS) VBG pH POC VBG pCO2 POC VBG pO2 Mixed VBG HCO3 Sodium 173 H* Potassium Chloride Carbon Dioxide Anion Gap BUN Creatinine Creat Clearance w eGFR Random Glucose Lactic Acid Calcium Total Bilirubin AST ALT Alkaline Phosphatase Troponin I Total Protein Albumin Urine Color Dkyellow Urine Appearance Cloudy Urine pH 5.0 Ur Specific [place] 1.020 Urine Protein 1+ H Urine Glucose (UA) Negative Urine Ketones Negative Urine Blood 2+ H Urine Nitrite Positive Urine Bilirubin Negative Urine Urobilinogen Negative Ur Leukocyte Esterase 2+ H Urine WBC (Auto) 54 Urine RBC (Auto) 30 Urine Bacteria Many Influenza A (Rapid) Negative Influenza B (Rapid) Negative ASSESSMENT/PLAN: 72 y/o male with PMHx of HTN, HLD, NIDDM, CAD s/p 4 vessel CABG 1999, A-fib/ flutter s/p 2 ablations, Hx of bladder cancer, PAD s/p stent admitted from [facility] for Lethargy. #AMS -Likely due to Hypernatremia; Still consider UTI -Head CT found no evidence for Acute intracranial pathology -CXR no infiltrate or effusions on my read, pending official read -Blood Cx pending -Free water deficit calculated 11.0L -Given 2L NS in ED; Started on D5w @ 75 mls/hr -BMP Q4H #UTI -UA revealed Protien 1+, Blood 2+, Nitrite +, LE 2+, WBC 54 -Urine and Blood Cx pending -Given one dose Rocephin in ED; Ordered Carbapenem 1gm Q8H given previous sensitivities on last visit -ID (Dr. Kaiser) consulted #RIAZ -Likely due to Dehydration -Renal/Bladder US ordered -Nephrology (Dr. Sampson) Consulted #Tranaminitis, Thrombocytopenia, Elevated INR -Hepatitis Panel -RUQ US pending #NIDDM -BGM, ISS ACHS #HLD -Continue home dose Lipitor #CAD -Continue home dose ASA #FEN -IV D5w @ 75 mls/hr -BMP Q4H to monitor for HyperNa -NPO #PPx -DVT: Heparin TID Code status: Full Code Dispo: Admit to med-surg, Meds Reconciled Visit type - Emergency Visit Emergency Visit: Yes ED Registration Date: 08/24/18 Care time: The patient presented to the Emergency Department on the above date and was hospitalized for further evaluation of their emergent condition. - New Patient This patient is new to me today: Yes Date on this admission: 08/25/18 - Critical Care Critical Care patient: No
[2018-08-24] MEDS ORDERED: ATORVASTATIN CA 10 MG TABLET (FP) PO SCH (22:00)
[2018-08-24] MEDS: HEPARIN NA (PORCINE) 5,000 UNITS/ML 1ML VIAL SQ SCH (23:19)
[2018-08-24] MEDS: INSULIN SLIDING SCALE (NOVOLOG) 1 VIAL SQ SCH (23:23)
[2018-08-24] MEDS ORDERED: ATORVASTATIN CA 10 MG TABLET (FP) ONE (23:26)
[2018-08-24] MEDS ORDERED: HEPARIN NA (PORCINE) 5,000 UNITS/ML 1ML VIAL ONE (23:26)
[2018-08-24] MEDS: NYSTATIN POWDER 100,000 UNITS/GM - 15 GM TOPICAL POWDER TP SCH (23:28)
[2018-08-25] MEDS ORDERED: DEXTROSE 5%-WATER - 1,000 ML IV SCH ×3 (00:39→15:15)
[2018-08-25] MEDS: MEROPENEM 1 GM in DEXTROSE 5%-WATER 100 ML IVPB SCH ×3 (01:30→17:02)
[2018-08-25 03:59] LABS: SODIUM 170 mmol/L (136-145)
[2018-08-25 04:05] LABS: ANION GAP 4 MMOL/L (8-16); BLOOD UREA NITROGEN 63 mg/dL (7-18); CALCIUM 8.2 mg/dL (8.5-10.1); CHLORIDE 143 mmol/L (98-107); CO2 23 mmol/L (21-32); CREATININE 1.7 mg/dL (0.55-1.3); GLUCOSE,RANDOM 156 mg/dL (74-106); POTASSIUM 3.6 mmol/L (3.5-5.1)
[2018-08-25] MEDS ORDERED: ALBUTEROL SO4 0.083% IH SOL 2.5 MG/3 ML VIAL.NEB. NEB ONE (05:02)
--- NOTE | 2018-08-25 05:16 | PN ---
Progress Note (short form) - Note Progress Note: Paged due to desaturation to 88% via bedside pulse ox on 2LNC. Attended to patient and confirmed equipment was working. Based on physical exam pt R lung sounds with more coarse breath sounds. Pt continues to be altered, however has increased activity compared to admission. --Likely multifactorial in that pt has increased secretions, pt's fingers are cold, and suspect poor waveform (2/2 to pt not staying still). --HOB elevated 35-45* --Stat CXR --Will likely need to restart fluids at lower rate if effusions present --Ordered albuterol once --Encouraged suction of pt's oropharynx
[2018-08-25] MEDS: HEPARIN NA (PORCINE) 5,000 UNITS/ML 1ML VIAL SQ SCH ×3 (06:01→21:59)
[2018-08-25] MEDS: INSULIN SLIDING SCALE (NOVOLOG) 1 VIAL SQ SCH ×4 (06:15→21:59)
--- NOTE | 2018-08-25 07:11 | EKG ---
Test Reason : Blood Pressure : / mmHG Vent. Rate : 080 BPM Atrial Rate : 080 BPM P-R Int : 112 ms QRS Dur : 138 ms QT Int : 452 ms P-R-T Axes : 105 042 146 degrees QTc Int : 521 ms NORMAL SINUS RHYTHM NON-SPECIFIC INTRA-VENTRICULAR CONDUCTION BLOCK T WAVE ABNORMALITY, CONSIDER LATERAL ISCHEMIA ABNORMAL ECG NO PREVIOUS ECGS AVAILABLE Confirmed by LUCRECIA MEDELLIN MD ([id number]) on 08/25/2018 7:11:13 AM Referred By: Confirmed By:LUCRECIA MEDELLIN MD
[2018-08-25 08:35] LABS: BASO % 0.2 % (0-2.0); EOS % 1.9 % (0-4.5); HEMATOCRIT 52.3 % (35.4-49); HEMOGLOBIN 16.2 GM/dL (11.7-16.9); LYMPH % 10.3 % (8-40); MCH 27.5 pg (25.7-33.7); MEAN CELL VOLUME 88.7 fl (80-96); MEAN PLT VOLUME 10.5 fl (7.5-11.1); MONO % 4.5 % (3.8-10.2); NEUT % 83.1 % (42.8-82.8); PLATELET COUNT 96 K/MM3 (134-434); RBC 5.89 M/mm3 (4.00-5.60); RDW 16.6 % (11.9-15.9)
[2018-08-25 09:38] LABS: ANION GAP 8 MMOL/L (8-16); BLOOD UREA NITROGEN 62 mg/dL (7-18); CHLORIDE 143 mmol/L (98-107); CO2 21 mmol/L (21-32); CREATININE 1.7 mg/dL (0.55-1.3); GLUCOSE,RANDOM 128 mg/dL (74-106); MAGNESIUM 2.5 mg/dL (1.8-2.4); PHOSPHOROUS 1.8 mg/dL (2.5-4.9); POTASSIUM 3.4 mmol/L (3.5-5.1)
[2018-08-25 09:42] LABS: SODIUM 172 mmol/L (136-145)
[2018-08-25] MEDS ORDERED: ASPIRIN 81 MG CHEWABLE TABLETS PO SCH (10:00)
[2018-08-25 10:04] LABS: ANION GAP 7 MMOL/L (8-16); BLOOD UREA NITROGEN 63 mg/dL (7-18); CALCIUM 8.1 mg/dL (8.5-10.1); CHLORIDE 144 mmol/L (98-107); CO2 20 mmol/L (21-32); CREATININE 1.8 mg/dL (0.55-1.3); GLUCOSE,RANDOM 122 mg/dL (74-106)
[2018-08-25] MEDS ORDERED: PT OWN MED DRAWER 7, Y5N ONE (10:09)
[2018-08-25] MEDS: NYSTATIN POWDER 100,000 UNITS/GM - 15 GM TOPICAL POWDER TP SCH ×2 (10:13→22:00)
[2018-08-25 10:55] LABS: SODIUM 171 mmol/L (136-145)
--- NOTE | 2018-08-25 11:05 | PN ---
Progress Note, Physician Chief Complaint: Pt laying in bed. lethargic, arousable to painful stimuli. non verbal. unable to obtain family at bedside. - Current Medication List Current Medications: Active Medications Aspirin (Asa -) 81 mg PO DAILY [facility] Last Admin: 08/25/18 10:13 Dose: 81 mg Atorvastatin Calcium (Lipitor -) 10 mg PO HS [facility] Last Admin: 08/24/18 23:48 Dose: Not Given Ergocalciferol (Drisdol -) 50,000 unit PO We@0800 NAN Heparin Sodium (Porcine) (Heparin -) 5,000 unit SQ TID [facility] Last Admin: 08/25/18 06:01 Dose: 5,000 unit Meropenem 1 gm/ Dextrose 100 mls @ 200 mls/hr IVPB Q8H-IV NAN Dextrose (D5w -) 1,000 mls @ 150 mls/hr IV ASDIR [facility] Last Admin: 08/25/18 04:43 Dose: 150 mls/hr Insulin Aspart (Novolog Vial Sliding Scale -) 1 vial SQ ACHS [facility]; Protocol Last Admin: 08/25/18 06:15 Dose: Not Given Nystatin (Nystop Powder -) 1 applic TP BID [facility] Last Admin: 08/25/18 10:13 Dose: 1 applic - Objective Vital Signs: Vital Signs Temperature 98.1 F 08/25/18 03:29 Pulse Rate 70 08/25/18 03:29 Respiratory Rate 18 08/25/18 03:29 Blood Pressure 123/63 08/25/18 03:29 O2 Sat by Pulse Oximetry (%) 95 08/25/18 03:29 Constitutional: Yes: Well Nourished, No Distress Cardiovascular: Yes: Regular Rate and Rhythm Respiratory: Yes: WNL, Regular, CTA Bilaterally. No: Accessory Muscle Use, Rhonchi, SOB Gastrointestinal: Yes: WNL, Normal Bowel Sounds, Soft. No: Distention, Tenderness Genitourinary: Yes: Incontinence Edema: No Neurological: Yes: Lethargy Labs: CBC, BMP 08/25/18 07:00 08/25/18 09:00 INR, PTT INR 1.84 (0.83-1.09) H 08/24/18 15:30 Problem List - Problems (1) Sepsis Assessment/Plan: presents w/ riaz, transaminitis, fever severe hyponatremia, +ams possibly 2/2 uti wbc count/lactic acid wnl Meropenem day 1 await blood/urine cultures ID following Code(s): A41.9 - SEPSIS, UNSPECIFIED ORGANISM Qualifiers: Sepsis type: sepsis due to unspecified organism Qualified Code(s): A41.9 - Sepsis, unspecified organism (2) UTI (urinary tract infection) Assessment/Plan: UA+, UC pending as above Code(s): N39.0 - URINARY TRACT INFECTION, SITE NOT SPECIFIED Qualifiers: Urinary tract infection type: acute cystitis Hematuria presence: with hematuria Qualified Code(s): N30.01 - Acute cystitis with hematuria (3) Metabolic encephalopathy Assessment/Plan: pt lethargic, unable to take in po aspiration risk, maintain npo suspect 2/2 uti, hypernatremia head ct without acute findings treat underlying and monitor for improvement Code(s): G93.41 - METABOLIC ENCEPHALOPATHY (4) Hypernatremia Assessment/Plan: suspect 2/2 severe dehydration/sepsis urine na 47 Avoid rapid correction slowly improving D5 125ml/hr bmp q4hrs nephrology managed Code(s): E87.0 - HYPEROSMOLALITY AND HYPERNATREMIA (5) RIAZ (acute kidney injury) Assessment/Plan: improving IVF monitor Code(s): N17.9 - ACUTE KIDNEY FAILURE, UNSPECIFIED (6) Hypokalemia Assessment/Plan: kcl 10meq x 3 monitor bmp Code(s): E87.6 - HYPOKALEMIA (7) Hypophosphatemia Assessment/Plan: potassium phosphate ordered monitor bmp Code(s): E83.39 - OTHER DISORDERS OF PHOSPHORUS METABOLISM (8) Transaminitis Assessment/Plan: 2/2 hypoperfusion hydrate and monitor Code(s): R74.0 - NONSPEC ELEV OF LEVELS OF TRANSAMNS & LACTIC ACID DEHYDRGNSE (9) Goals of care, counseling/discussion Assessment/Plan: Pt's sis Rolanda is HCP, discussed in detail pt's status Rolanda reports she would like pt to be DNR/DNI- forms signed to continue discussion, palliative consulted Code(s): Z71.89 - OTHER SPECIFIED COUNSELING Assessment/Plan Dispo: [facility]
--- NOTE | 2018-08-25 12:12 | CONSULT ---
Admitting History and Physical - Admission History of Present Illness: Patient is a 72 year old man, with a significant past medical history of NIDDM, HTN, CABG, PAD with stenting, Bladder cancer, Afib, HLD, Depression, UTI, who presents to the ER with, 3 days of altered mental status. As per [facility], the patient has been increasingly lethargic and had a decreased appetite This is my first consult with this pt. Puree/thin liquid ordered with Aspiration precautions on 08/[address] [facility]. Call placed to [facility] to determine pt's baseline. Chart reports deterioration - lethargy and reduced po intake. They could not clarify pt's baseline other than he is confused. Presently,Pt is Non verbal/Non vocal, bilateral Ptosis, Adria;ateral weakness, moves both arms but very weak. History Source: Medical Record Limitations to Obtaining History: Clinical Condition - Smoking History Smoking history: Unknown if ever smoked Have you smoked in the past 12 months: No - Alcohol/Substance Use Hx Alcohol Use: No History - Admission Reason For Visit: UTI/HYPERNATREMIA/AMS - Diagnostics X-ray: Report Reviewed CT Scan: Report Reviewed - General Mental Status: Flat Affect (Bilateral ptosis?) Head/Neck Control: Poor, Needs Assist - Hearing Hearing: Normal Speech Evaluation - Communication Primary Language: FAROESE Communication: Yes: Non-Communicable Oral Expression Ability: Yes: Non-Verbal, Non-Vocal - Language/Verbal Expression Functional Communication Status: Yes: Severely Impaired - Swallow Evaluation/Bedside Assessment Current Nutritional Intake: Regular, Thin Liquids Dentition: Yes: Adequate Facial Symmetry at Rest: Symmetrical (Bilateral facial weakness?) Labial Seal: Impaired Bilaterally Timing of Swallow: Absent Recommendations - Speech Evaluation, Impression/Plan Impression: I could not determine pt's baseline from chart or attempt to discuss with NH. Bilateral facial weakness, weak UES but moves them. Absent swallow. Ptosis. Non verbal. Slight audible vocaliztion but rare. - Dysphagia Impressions/Plan Swallowing Skills: Impaired Dysphagia Impressions: Profound Impairment, Ongoing Evaluation *Silent aspiration: cannot be R/O at bedside Dysphagia Treatment Plan: Other Recommendations: Neuro Consult, Palliative Care (Consider NGT for meds/nutrition ?) - Recommendations Diet Consistency: NPO Liquids: NPO
[2018-08-25 13:26] LABS: ANION GAP 5 MMOL/L (8-16); BLOOD UREA NITROGEN 61 mg/dL (7-18); CALCIUM 8.1 mg/dL (8.5-10.1); CHLORIDE 141 mmol/L (98-107); CO2 24 mmol/L (21-32); CREATININE 1.8 mg/dL (0.55-1.3); GLUCOSE,RANDOM 164 mg/dL (74-106); POTASSIUM 3.2 mmol/L (3.5-5.1); SODIUM 170 mmol/L (136-145)
--- NOTE | 2018-08-25 14:52 | CONSULT ---
Consult Consult Specialty:: Nephrology Reason for Consultation:: RIAZ and hypernatremia - History of Present Illness Chief Complaint: sent in for altered mental status History of Present Illness: Pt is a 72 year old male with pmhx of HTN, HLD, DM, CAD, dementia, CABG, a-fib, a-flutter, PAD and bladder cancer who was sent in for lethargy. He was found to be hypernatremic and in renal failure. I was called to evaluate him. He is not verbal and unable to give any history. He has very poor oral hygiene. Pt is awake but not responding to verbal stimuli. 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 Cardio/Vascular: Yes: CAD, Hyperlipdemia Heme/Onc: Yes: Other (bladder cancer) - Past Surgical History Past Surgical History: Yes: CABG - Alcohol/Substance Use Hx Alcohol Use: No - Smoking History Smoking history: Unknown if ever smoked Have you smoked in the past 12 months: No Home Medications - Allergies Allergies/Adverse Reactions: Allergies Allergy/AdvReac Type Severity Reaction Status Date / Time adhesive tape Allergy Verified 08/25/18 04:18 - Home Medications Home Medications: Ambulatory Orders Acetaminophen [Tylenol] 650 mg PO QID PRN 08/24/18 Aspirin 81 mg PO DAILY 08/24/18 Atorvastatin Ca [Lipitor] 10 mg PO HS 08/24/18 Enoxaparin [Lovenox -] 40 mg SQ DAILY 08/24/18 Ergocalciferol (Vitamin D2) [Vitamin D2] 50,000 unit PO WEEKLY 08/24/18 Insulin Lispro [Humalog] See Protocol SQ 08/24/18 Nystatin Powder [Nystop Topical Powder -] 15 gm TP BID 08/24/18 Family Disease History - Family Disease History Family History: Unable to Obtain Review of Systems Unable to obtain ROS, reason: not verbal Physical Exam Vital Signs: Vital Signs Temperature 97.2 F L 08/25/18 09:00 Pulse Rate 87 08/25/18 09:00 Respiratory Rate 24 H 08/25/18 09:00 Blood Pressure 104/54 L 08/25/18 09:00 O2 Sat by Pulse Oximetry (%) 91 L 08/25/18 09:00 Constitutional: Yes: Calm Eyes: Yes: Conjunctiva Clear Cardiovascular: Yes: S1, S2 Respiratory: Yes: On Nasal O2, Wheezes Gastrointestinal: Yes: Soft Renal/: Yes: Incontinence Musculoskeletal: Yes: Muscle Weakness Edema: No Neurological: Yes: Lethargy Labs: CBC, BMP 08/25/18 07:00 08/25/18 12:10 Laboratory Tests 08/24/18 08/24/18 08/24/18 15:30 16:35 20:30 WBC Hgb Sodium 172 H* 173 H* Potassium Chloride BUN Creatinine Urine Protein 1+ H Urine Blood 2+ H 08/25/18 08/25/18 08/25/18 03:33 07:00 07:00 WBC 8.0 Hgb 16.2 Sodium 170 H* 172 H* Potassium Chloride BUN Creatinine Urine Protein Urine Blood 08/25/18 12:10 WBC Hgb Sodium 170 H* Potassium 3.2 L Chloride 141 H BUN 61 H Creatinine 1.8 H Urine Protein Urine Blood Imaging - Results Chest X-ray: Report Reviewed Cat Scan: Report Reviewed Ultrasound: Report Reviewed Problem List - Problems (1) Altered mental status Code(s): R41.82 - ALTERED MENTAL STATUS, UNSPECIFIED Qualifiers: Altered mental status type: unspecified Qualified Code(s): R41.82 - Altered mental status, unspecified (2) Hypernatremia Code(s): E87.0 - HYPEROSMOLALITY AND HYPERNATREMIA Assessment/Plan Current Medications Generic Name Dose Route Start Last Admin Trade Name Freq PRN Reason Stop Dose Admin Aspirin 81 mg 08/25/18 10:00 08/25/18 10:13 Asa - PO 81 mg DAILY NAN Administration Atorvastatin Calcium 10 mg 08/24/18 22:00 08/24/18 23:48 Lipitor - PO Not Given HS NAN Ergocalciferol 50,000 unit 08/27/18 08:00 Drisdol - PO We@0800 NAN Heparin Sodium (Porcine) 5,000 unit 08/24/18 22:00 08/25/18 13:49 Heparin - SQ 5,000 unit TID NAN Administration Meropenem 1 gm/ Dextrose 100 mls @ 200 mls/hr 08/25/18 18:00 IVPB Q8H-IV NAN Dextrose 1,000 mls @ 150 mls/hr 08/25/18 04:27 08/25/18 04:43 D5w - IV 150 mls/hr ASDIR NAN Administration Insulin Aspart 1 vial 08/24/18 22:00 08/25/18 11:20 Novolog Vial Sliding Scale - SQ 2 units ACHS NAN Administration Protocol Nystatin 1 applic 08/24/18 22:00 08/25/18 10:13 Nystop Powder - TP 1 applic BID NAN Administration Impression 1. hypernatremia 2. RIAZ 3. UTI 4. change in mental status 5. dementia 6. CAD 7. HLD Plan - pt has a total free water deficit of just under 10 liters based on a weight of 205 pounds - he will need about 2.9 liters to get him to a target sodium of 160 in 24 hours - avoid a change of greater than 10 meq - can use free water if ng tube is placed - can give d5w at 125 cc per hour - monitor sodium - replace potassium - check mag - monitor renal function - follow cultures - abx for UTI - discussed with nursing staff - will follow
[2018-08-25] MEDS ORDERED: POTASSIUM PHOSPHATE 20 MM in DEXTROSE 5%-WATER - 250 ML IVPB ONE (15:15)
--- NOTE | 2018-08-25 15:23 | CON.ID ---
Consult Consult Specialty:: infectious diseases Referred by:: Albert Reason for Consultation:: uti,ams - History of Present Illness History of Present Illness: patient known to me from last admission when he was diagnosed with esbl and treated for the same. patient also had confusion and was seen by neurology and worked up patient had completed the course of abx during that admission. now patient comes in non verbal ams,confused and history obtained from the chart 72 year old male with pmhx of HTN, HLD, DM, CAD, dementia, CABG, a-fib, a- flutter, PAD and bladder cancer who was sent in for lethargy. He was found to be hypernatremic and in renal failure. . He is not verbal and unable to give any history. He has very poor oral hygiene. Pt is awake but not responding to verbal stimuli. 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 Cardio/Vascular: Yes: CAD, Hyperlipdemia - Past Surgical History Past Surgical History: Yes: CABG - Alcohol/Substance Use Hx Alcohol Use: No - Smoking History Smoking history: Unknown if ever smoked Have you smoked in the past 12 months: No Home Medications - Allergies Allergies/Adverse Reactions: Allergies Allergy/AdvReac Type Severity Reaction Status Date / Time adhesive tape Allergy Verified 08/25/18 04:18 - Home Medications Home Medications: Ambulatory Orders Acetaminophen [Tylenol] 650 mg PO QID PRN 08/24/18 Aspirin 81 mg PO DAILY 08/24/18 Atorvastatin Ca [Lipitor] 10 mg PO HS 08/24/18 Enoxaparin [Lovenox -] 40 mg SQ DAILY 08/24/18 Ergocalciferol (Vitamin D2) [Vitamin D2] 50,000 unit PO WEEKLY 08/24/18 Insulin Lispro [Humalog] See Protocol SQ 08/24/18 Nystatin Powder [Nystop Topical Powder -] 15 gm TP BID 08/24/18 Review of Systems Unable to obtain ROS, reason: unable to obtain Physical Exam Vital Signs: Vital Signs Temperature 97.4 F L 08/25/18 14:59 Pulse Rate 73 08/25/18 14:59 Respiratory Rate 20 08/25/18 14:59 Blood Pressure 120/66 08/25/18 14:59 O2 Sat by Pulse Oximetry (%) 91 L 08/25/18 09:00 Constitutional: Yes: Well Nourished, Calm, Other Cardiovascular: Yes: Regular Rate and Rhythm Respiratory: Yes: Regular, CTA Bilaterally Gastrointestinal: Yes: Normal Bowel Sounds, Soft Musculoskeletal: Yes: WNL Extremities: Yes: WNL Neurological: Yes: Confusion, Lethargy Psychiatric: Yes: Other Labs: CBC, BMP 08/25/18 07:00 08/25/18 12:10 Imaging - Results Chest X-ray: Report Reviewed, Image Reviewed Cat Scan: Report Reviewed, Image Reviewed Ultrasound: Report Reviewed, Image Reviewed Assessment/Plan 1. hypernatremia 2. RIAZ 3. UTI 4. change in mental status 5. dementia 6. CAD 7. HLD plan will continue meropenam await for all cx reports hydration as per neuro rest as per the team
[2018-08-25] MEDS: KCL 10 MEQ IVPB 10 MEQ/100 ML INFUS.BAG IVPB SCH ×3 (15:49→17:45)
[2018-08-25 17:46] LABS: ANION GAP 3 MMOL/L (8-16); BLOOD UREA NITROGEN 57 mg/dL (7-18); CALCIUM 7.6 mg/dL (8.5-10.1); CHLORIDE 141 mmol/L (98-107); CO2 22 mmol/L (21-32); CREATININE 1.6 mg/dL (0.55-1.3); GLUCOSE,RANDOM 176 mg/dL (74-106); POTASSIUM 3.4 mmol/L (3.5-5.1)
[2018-08-25 17:58] LABS: SODIUM 166 mmol/L (136-145)
[2018-08-25] MEDS ORDERED: MEROPENEM 1 GM in DEXTROSE 5%-WATER 100 ML IVPB SCH (18:00)
[2018-08-25] MEDS ORDERED: DEXTROSE 5%-0.45% SALINE 1,000 ML IV SCH (20:45)
[2018-08-25 21:52] LABS: ANION GAP 5 MMOL/L (8-16); BLOOD UREA NITROGEN 56 mg/dL (7-18); CALCIUM 7.7 mg/dL (8.5-10.1); CHLORIDE 137 mmol/L (98-107); CO2 24 mmol/L (21-32); CREATININE 1.8 mg/dL (0.55-1.3); GLUCOSE,RANDOM 209 mg/dL (74-106); POTASSIUM 3.7 mmol/L (3.5-5.1)
[2018-08-25 22:25] LABS: SODIUM 166 mmol/L (136-145)
[2018-08-26] MEDS: MEROPENEM 1 GM in DEXTROSE 5%-WATER 100 ML IVPB SCH ×3 (01:36→17:25)
[2018-08-26] MEDS ORDERED: ACETAMINOPHEN 1000 MG/100 ML VIAL (NON FORMULARY) IVPB ONE (01:51)
[2018-08-26] MEDS: HEPARIN NA (PORCINE) 5,000 UNITS/ML 1ML VIAL SQ SCH ×3 (05:59→21:20)
[2018-08-26] MEDS: INSULIN SLIDING SCALE (NOVOLOG) 1 VIAL SQ SCH ×4 (06:07→21:20)
[2018-08-26 07:31] LABS: BASO % 0.4 % (0-2.0); EOS % 1.9 % (0-4.5); HEMATOCRIT 47.6 % (35.4-49); HEMOGLOBIN 14.8 GM/dL (11.7-16.9); LYMPH % 12.4 % (8-40); MCH 27.5 pg (25.7-33.7); MEAN CELL VOLUME 88.7 fl (80-96); MEAN PLT VOLUME 10.6 fl (7.5-11.1); MONO % 4.3 % (3.8-10.2); PLATELET COUNT 80 K/MM3 (134-434); RBC 5.37 M/mm3 (4.00-5.60); RDW 16.2 % (11.9-15.9)
[2018-08-26 08:06] LABS: ALBUMIN 2.2 g/dl (3.4-5.0); ALK PHOS 94 U/L (45-117); ANION GAP 5 MMOL/L (8-16); BILIRUBIN,TOTAL 0.7 mg/dL (0.2-1); BLOOD UREA NITROGEN 48 mg/dL (7-18); CALCIUM 7.4 mg/dL (8.5-10.1); CHLORIDE 138 mmol/L (98-107); CO2 21 mmol/L (21-32); CREATININE 1.6 mg/dL (0.55-1.3); GLUCOSE,RANDOM 146 mg/dL (74-106); MAGNESIUM 2.1 mg/dL (1.8-2.4); PHOSPHOROUS 2.4 mg/dL (2.5-4.9); POTASSIUM 3.4 mmol/L (3.5-5.1); SGOT/AST 46 U/L (15-37); SGPT/ALT 98 U/L (13-61); TOT PROT 5.9 g/dl (6.4-8.2)
[2018-08-26 10:30] LABS: SODIUM 164 mmol/L (136-145)
[2018-08-26] MEDS ORDERED: PT OWN MED DRAWER 7, Y5N ONE ×2 (10:38→17:21)
[2018-08-26] MEDS: NYSTATIN POWDER 100,000 UNITS/GM - 15 GM TOPICAL POWDER TP SCH ×2 (10:43→21:21)
[2018-08-26] MEDS ORDERED: DEXTROSE 5%-WATER - 1,000 ML IV SCH (10:45)
[2018-08-26] MEDS: DEXTROSE 5%-WATER - 1,000 ML IV SCH (11:29)
--- NOTE | 2018-08-26 12:07 | PN ---
Physical Exam: SUBJECTIVE: Patient seen and examined. He is awake and confused. OBJECTIVE: Vital Signs Period Temp Pulse Resp BP Sys/Street Pulse Ox Last 24 Hr 97.4 F-100.1 F 67-80 20-20 120-144/66-79 94 GENERAL: The patient is awake, confused, in no acute distress. LUNGS: Breath sounds equal, clear to auscultation bilaterally, no wheezes, no crackles, no accessory muscle use. HEART: Regular rate and rhythm, S1, S2 without murmur, rub or gallop. ABDOMEN: Soft, nondistended, normoactive bowel sounds, no guarding, no rebound, no hepatosplenomegaly, no masses. EXTREMITIES: 2+ pulses, warm, well-perfused, no edema. Laboratory Results - last 24 hr 08/25/18 08/25/18 08/25/18 07:00 11:19 11:20 WBC RBC Hgb Hct MCV MCH MCHC RDW Plt Count MPV Absolute Neuts (auto) Neutrophils % Lymphocytes % Monocytes % Eosinophils % Basophils % Nucleated RBC % Sodium Potassium Chloride Carbon Dioxide Anion Gap BUN Creatinine Creat Clearance w eGFR POC Glucometer 162 Random Glucose Calcium Phosphorus Magnesium Total Bilirubin AST ALT Alkaline Phosphatase Total Protein Albumin Urine Osmolality 670 Ur Random Sodium Urine Creatinine Hep B Core IgM Ab Negative 08/25/18 08/25/18 08/25/18 11:20 11:20 12:10 WBC RBC Hgb Hct MCV MCH MCHC RDW Plt Count MPV Absolute Neuts (auto) Neutrophils % Lymphocytes % Monocytes % Eosinophils % Basophils % Nucleated RBC % Sodium 170 H* Potassium 3.2 L Chloride 141 H Carbon Dioxide 24 Anion Gap 5 L BUN 61 H Creatinine 1.8 H Creat Clearance w eGFR 37.17 POC Glucometer Random Glucose 164 H Calcium 8.1 L Phosphorus Magnesium Total Bilirubin AST ALT Alkaline Phosphatase Total Protein Albumin Urine Osmolality Ur Random Sodium 47 Urine Creatinine 97.0 H Hep B Core IgM Ab 08/25/18 08/25/18 08/25/18 15:45 15:45 20:30 WBC RBC Hgb Hct MCV MCH MCHC RDW Plt Count MPV Absolute Neuts (auto) Neutrophils % Lymphocytes % Monocytes % Eosinophils % Basophils % Nucleated RBC % Sodium 166 H* 166 H* Potassium 3.4 L 3.7 Chloride 141 H 137 H Carbon Dioxide 22 24 Anion Gap 3 L 5 L BUN 57 H 56 H Creatinine 1.6 H 1.8 H Creat Clearance w eGFR 42.58 37.17 POC Glucometer Random Glucose 176 H 209 H Calcium 7.6 L 7.7 L Phosphorus Magnesium 2.1 Total Bilirubin AST ALT Alkaline Phosphatase Total Protein Albumin Urine Osmolality Ur Random Sodium Urine Creatinine Hep B Core IgM Ab 08/25/18 08/26/18 08/26/18 21:57 05:46 06:00 WBC RBC Hgb Hct MCV MCH MCHC RDW Plt Count MPV Absolute Neuts (auto) Neutrophils % Lymphocytes % Monocytes % Eosinophils % Basophils % Nucleated RBC % Sodium 164 H* Potassium 3.4 L Chloride 138 H Carbon Dioxide 21 Anion Gap 5 L BUN 48 H Creatinine 1.6 H Creat Clearance w eGFR 42.58 POC Glucometer 123 125 Random Glucose 146 H Calcium 7.4 L Phosphorus 2.4 L Magnesium 2.1 Total Bilirubin 0.7 AST 46 H ALT 98 H Alkaline Phosphatase 94 Total Protein 5.9 L Albumin 2.2 L Urine Osmolality Ur Random Sodium Urine Creatinine Hep B Core IgM Ab 08/26/18 06:00 WBC 10.0 RBC 5.37 Hgb 14.8 Hct 47.6 MCV 88.7 MCH 27.5 MCHC 31.0 L RDW 16.2 H Plt Count 80 L MPV 10.6 Absolute Neuts (auto) 8.1 H Neutrophils % 81.0 Lymphocytes % 12.4 D Monocytes % 4.3 Eosinophils % 1.9 Basophils % 0.4 Nucleated RBC % 0 Sodium Potassium Chloride Carbon Dioxide Anion Gap BUN Creatinine Creat Clearance w eGFR POC Glucometer Random Glucose Calcium Phosphorus Magnesium Total Bilirubin AST ALT Alkaline Phosphatase Total Protein Albumin Urine Osmolality Ur Random Sodium Urine Creatinine Hep B Core IgM Ab Active Medications Generic Name Dose Route Start Last Admin Trade Name Freq PRN Reason Stop Dose Admin Heparin Sodium (Porcine) 5,000 unit 08/24/18 22:00 08/26/18 05:59 Heparin - SQ 5,000 unit TID NAN Administration Meropenem 1 gm/ Dextrose 100 mls @ 200 mls/hr 08/25/18 18:00 08/26/18 10:41 IVPB 200 mls/hr Q8H-IV NAN Administration Dextrose 1,000 mls @ 100 mls/hr 08/26/18 11:08 D5w - IV ASDIR NAN Insulin Aspart 1 vial 08/24/18 22:00 08/26/18 06:07 Novolog Vial Sliding Scale - SQ Not Given ACHS [facility] Protocol Nystatin 1 applic 08/24/18 22:00 08/26/18 10:43 Nystop Powder - TP 1 applic BID [facility] Administration ASSESSMENT/PLAN: 1. Sepsis (Temp 100.3, tachypnea) secondary to UTI - Urine culture growing gram neg rods, pending organism - Continue Merrem (day 2) - Follow up identification and sensitivities 2. Acute metabolic encephalopathy secondary to sepsis, hypernatremia 3. Hypernatremia secondary to dehydration - Improving with IV fluid - Continue D5W and monitor electrolytes 4. Acute kidney injury - Continue IV fluid - BUN improving, creatinine stable - Continue to monitor BUN, creatinine 5. Hypokalemia - Replete potassium 6. Hypophosphatemia - Improved 7. Hepatic transaminitis secondary to sepsis, hypoperfusion - Improving 8. HTN - On no meds 9. Hyperlipidemia - Lipitor held secondary to transaminitis 10. CAD - Resume aspirin when able to tolerate PO - Lipitor held secondary to transaminitis 11. Type 2 DM - Continue Novolog sliding scale 12. History of atrial fib/flutter 13. PAD Visit type - Emergency Visit Emergency Visit: Yes ED Registration Date: 08/24/18 Care time: The patient presented to the Emergency Department on the above date and was hospitalized for further evaluation of their emergent condition. - New Patient This patient is new to me today: Yes Date on this admission: 08/26/18 - Critical Care Critical Care patient: No - Discharge Referral Referred to [facility] Med P.C.: No
[2018-08-26] MEDS: KCL 10 MEQ IVPB 10 MEQ/100 ML INFUS.BAG IVPB SCH ×3 (13:28→18:34)
[2018-08-26 16:27] LABS: BLOOD UREA NITROGEN 42 mg/dL (7-18); CALCIUM 7.3 mg/dL (8.5-10.1); CHLORIDE 136 mmol/L (98-107); CO2 21 mmol/L (21-32); CREATININE 1.5 mg/dL (0.55-1.3); GLUCOSE,RANDOM 116 mg/dL (74-106)
[2018-08-26 16:28] LABS: ANION GAP 5 MMOL/L (8-16); POTASSIUM 3.7 mmol/L (3.5-5.1)
[2018-08-26 16:31] LABS: SODIUM 162 mmol/L (136-145)
--- NOTE | 2018-08-26 16:38 | PN ---
Progress Note, Physician History of Present Illness: Pt seen and examined at bedside. He is tolerating the fluid. He is awake but not verbal. - Current Medication List Current Medications: Active Medications Heparin Sodium (Porcine) (Heparin -) 5,000 unit SQ TID NAN Last Admin: 08/26/18 13:37 Dose: 5,000 unit Meropenem 1 gm/ Dextrose 100 mls @ 200 mls/hr IVPB Q8H-IV NAN Last Admin: 08/26/18 10:41 Dose: 200 mls/hr Dextrose (D5w -) 1,000 mls @ 100 mls/hr IV ASDIR NAN Last Admin: 08/26/18 11:29 Dose: 100 mls/hr Insulin Aspart (Novolog Vial Sliding Scale -) 1 vial SQ ACHS NAN; Protocol Last Admin: 08/26/18 13:19 Dose: Not Given Nystatin (Nystop Powder -) 1 applic TP BID NAN Last Admin: 08/26/18 10:43 Dose: 1 applic - Objective Vital Signs: Vital Signs Temperature 100.7 F H 08/26/18 14:00 Pulse Rate 70 08/26/18 14:00 Respiratory Rate 26 H 08/26/18 14:00 Blood Pressure 116/62 08/26/18 14:00 O2 Sat by Pulse Oximetry (%) 94 L 08/26/18 14:00 Constitutional: Yes: Calm Eyes: Yes: Conjunctiva Clear Cardiovascular: Yes: S1, S2 Respiratory: Yes: On Nasal O2 Gastrointestinal: Yes: Soft Genitourinary: Yes: Incontinence Musculoskeletal: Yes: Muscle Weakness Edema: No Neurological: Yes: Confusion, Pre-Existing Deficit Labs: CBC, BMP 08/26/18 06:00 08/26/18 15:10 INR, PTT INR 1.84 (0.83-1.09) H 08/24/18 15:30 Problem List - Problems (1) Hypernatremia Code(s): E87.0 - HYPEROSMOLALITY AND HYPERNATREMIA (2) Altered mental status Code(s): R41.82 - ALTERED MENTAL STATUS, UNSPECIFIED Qualifiers: Altered mental status type: unspecified Qualified Code(s): R41.82 - Altered mental status, unspecified Assessment/Plan Current Medications Generic Name Dose Route Start Last Admin Trade Name Freq PRN Reason Stop Dose Admin Heparin Sodium (Porcine) 5,000 unit 08/24/18 22:00 08/26/18 13:37 Heparin - SQ 5,000 unit TID NAN Administration Meropenem 1 gm/ Dextrose 100 mls @ 200 mls/hr 08/25/18 18:00 08/26/18 10:41 IVPB 200 mls/hr Q8H-IV NAN Administration Dextrose 1,000 mls @ 100 mls/hr 08/26/18 11:08 08/26/18 11:29 D5w - IV 100 mls/hr ASDIR NAN Administration Insulin Aspart 1 vial 08/24/18 22:00 08/26/18 13:19 Novolog Vial Sliding Scale - SQ Not Given ACHS NAN Protocol Nystatin 1 applic 08/24/18 22:00 08/26/18 10:43 Nystop Powder - TP 1 applic BID NAN Administration Laboratory Tests 08/26/18 08/26/18 06:00 15:10 Sodium 164 H* 162 H* Microbiology 08/24/18 16:35 Urine - Urine - Catheterized Urine Culture - Preliminary Non Lactose Fermenting Gnb Pending Organism 08/24/18 15:30 Blood - Peripheral Venous Blood Culture - Preliminary NO GROWTH OBTAINED AFTER 48 HOURS, INCUBATION TO CONTINUE FOR 3 DAYS. 08/24/18 15:30 Blood - Peripheral Venous Blood Culture - Preliminary NO GROWTH OBTAINED AFTER 48 HOURS, INCUBATION TO CONTINUE FOR 3 DAYS. Impression 1. hypernatremia 2. RIAZ 3. UTI 4. change in mental status 5. dementia 6. CAD 7. HLD Plan - sodium is improving - cont with d5w and monitor sodium levels - renal function is improving - avoid a change of greater than 10 meq in 24 hours - cont abx - follow cultures - replace phos - will follow
[2018-08-27] MEDS ORDERED: PT OWN MED DRAWER 7, Y5N ONE (01:05)
[2018-08-27] MEDS: MEROPENEM 1 GM in DEXTROSE 5%-WATER 100 ML IVPB SCH ×3 (01:08→18:25)
[2018-08-27] MEDS: DEXTROSE 5%-WATER - 1,000 ML IV SCH ×3 (01:15→18:03)
[2018-08-27] MEDS: INSULIN SLIDING SCALE (NOVOLOG) 1 VIAL SQ SCH ×4 (06:28→21:39)
[2018-08-27] MEDS: HEPARIN NA (PORCINE) 5,000 UNITS/ML 1ML VIAL SQ SCH ×3 (06:28→21:38)
[2018-08-27 07:28] LABS: HEMATOCRIT 44.3 % (35.4-49); HEMOGLOBIN 14.8 GM/dL (11.7-16.9); MCH 29.2 pg (25.7-33.7); MCHC 33.4 g/dl (32.0-35.9); MEAN CELL VOLUME 87.3 fl (80-96); MEAN PLT VOLUME 10.5 fl (7.5-11.1); PLATELET COUNT 86 K/MM3 (134-434); RBC 5.08 M/mm3 (4.00-5.60); RDW 16.3 % (11.9-15.9); WHITE BLOOD COUNT 9.8 K/mm3 (4.0-10.0)
[2018-08-27] MEDS ORDERED: ERGOCALCIFEROL (VITAMIN D2) 50,000 UNIT CAPSULE (FP) PO SCH (08:00)
[2018-08-27 08:51] LABS: ALK PHOS 96 U/L (45-117); ANION GAP 7 MMOL/L (8-16); BILIRUBIN,DIRECT 0.3 mg/dL (0.0-0.2); BILIRUBIN,TOTAL 0.7 mg/dL (0.2-1); BLOOD UREA NITROGEN 35 mg/dL (7-18); CALCIUM 7.5 mg/dL (8.5-10.1); CHLORIDE 131 mmol/L (98-107); CO2 21 mmol/L (21-32); CREATININE 1.4 mg/dL (0.55-1.3); GLUCOSE,RANDOM 132 mg/dL (74-106); MAGNESIUM 1.9 mg/dL (1.8-2.4); POTASSIUM 3.3 mmol/L (3.5-5.1); SGOT/AST 65 U/L (15-37); SGPT/ALT 79 U/L (13-61); SODIUM 159 mmol/L (136-145); TOT PROT 5.6 g/dl (6.4-8.2)
[2018-08-27] MEDS ORDERED: POTASSIUM PHOSPHATE 20 MM in DEXTROSE 5%-WATER - 250 ML IVPB ONE (09:16)
[2018-08-27] MEDS: NYSTATIN POWDER 100,000 UNITS/GM - 15 GM TOPICAL POWDER TP SCH ×2 (09:55→21:39)
[2018-08-27 11:02] LABS: ANION GAP 7 MMOL/L (8-16); BLOOD UREA NITROGEN 33 mg/dL (7-18); CALCIUM 7.6 mg/dL (8.5-10.1); CHLORIDE 130 mmol/L (98-107); CO2 22 mmol/L (21-32); CREATININE 1.4 mg/dL (0.55-1.3); GLUCOSE,RANDOM 136 mg/dL (74-106); POTASSIUM 3.3 mmol/L (3.5-5.1); SODIUM 159 mmol/L (136-145)
[2018-08-27 11:12] LABS: HEP.C VIRUS AB 0.1 s/co ratio (0.0-0.9)
--- NOTE | 2018-08-27 11:15 | PN ---
Progress Note, Physician History of Present Illness: continues to be confused calm - Current Medication List Current Medications: Active Medications Heparin Sodium (Porcine) (Heparin -) 5,000 unit SQ TID NAN Last Admin: 08/27/18 06:28 Dose: 5,000 unit Meropenem 1 gm/ Dextrose 100 mls @ 200 mls/hr IVPB Q8H-IV NAN Last Admin: 08/27/18 09:55 Dose: 200 mls/hr Dextrose (D5w -) 1,000 mls @ 100 mls/hr IV ASDIR NAN Last Admin: 08/27/18 01:15 Dose: 100 mls/hr Potassium Phosphate 20 mm/ (Dextrose) 256.6667 mls @ 62.5 mls/hr IVPB ONCE ONE Stop: 08/27/18 13:22 Last Admin: 08/27/18 10:59 Dose: 62.5 mls/hr Insulin Aspart (Novolog Vial Sliding Scale -) 1 vial SQ ACHS [facility]; Protocol Last Admin: 08/27/18 10:50 Dose: Not Given Nystatin (Nystop Powder -) 1 applic TP BID [facility] Last Admin: 08/27/18 09:55 Dose: 1 applic - Objective Vital Signs: Vital Signs Temperature 98.5 F 08/27/18 08:13 Pulse Rate 73 08/27/18 08:13 Respiratory Rate 20 08/27/18 08:13 Blood Pressure 113/65 08/27/18 08:13 O2 Sat by Pulse Oximetry (%) 94 L 08/26/18 21:00 Constitutional: Yes: No Distress, Calm Cardiovascular: Yes: Regular Rate and Rhythm Respiratory: Yes: Regular, Poor Air Entry, Other (on face mask) Gastrointestinal: Yes: Normal Bowel Sounds, Soft Musculoskeletal: Yes: WNL Extremities: Yes: WNL Neurological: Yes: Alert, Confusion Labs: CBC, BMP 08/27/18 06:30 08/27/18 09:50 INR, PTT INR 1.84 (0.83-1.09) H 08/24/18 15:30 Assessment/Plan 1. hypernatremia 2. RIAZ 3. UTI 4. change in mental status 5. dementia 6. CAD 7. HLD plan continue ryan await for identification of the organism rest as per the team patient stable
--- NOTE | 2018-08-27 11:50 | PN ---
Progress Note, Physician Chief Complaint: Pt lying in bed. lethargic, arousable to verbal stimuli. Pt mouthing few words. unable to obtain - Current Medication List Current Medications: Active Medications Heparin Sodium (Porcine) (Heparin -) 5,000 unit SQ TID NAN Last Admin: 08/27/18 06:28 Dose: 5,000 unit Meropenem 1 gm/ Dextrose 100 mls @ 200 mls/hr IVPB Q8H-IV NNA Last Admin: 08/27/18 09:55 Dose: 200 mls/hr Dextrose (D5w -) 1,000 mls @ 100 mls/hr IV ASDIR NAN Last Admin: 08/27/18 01:15 Dose: 100 mls/hr Potassium Phosphate 20 mm/ (Dextrose) 256.6667 mls @ 62.5 mls/hr IVPB ONCE ONE Stop: 08/27/18 13:22 Last Admin: 08/27/18 10:59 Dose: 62.5 mls/hr Insulin Aspart (Novolog Vial Sliding Scale -) 1 vial SQ ACHS [facility]; Protocol Last Admin: 08/27/18 10:50 Dose: Not Given Nystatin (Nystop Powder -) 1 applic TP BID [facility] Last Admin: 08/27/18 09:55 Dose: 1 applic - Objective Vital Signs: Vital Signs Temperature 98.5 F 08/27/18 08:13 Pulse Rate 73 08/27/18 08:13 Respiratory Rate 20 08/27/18 08:13 Blood Pressure 113/65 08/27/18 08:13 O2 Sat by Pulse Oximetry (%) 94 L 08/26/18 21:00 Constitutional: Yes: Well Nourished, No Distress, Calm Cardiovascular: Yes: Regular Rate and Rhythm. No: Murmur Respiratory: Yes: Regular, CTA Bilaterally, Cough. No: Accessory Muscle Use, SOB, SOB on Exertion, Tachypnea, Wheezes Gastrointestinal: Yes: WNL, Normal Bowel Sounds, Soft. No: Distention, Tenderness Genitourinary: Yes: WNL Extremities: Yes: WNL Edema: No Neurological: Yes: Lethargy (improving) Labs: CBC, BMP 08/27/18 06:30 08/27/18 09:50 INR, PTT INR 1.84 (0.83-1.09) H 08/24/18 15:30 Assessment/Plan (1) Sepsis Assessment/Plan: improving Meropenem day 3 await blood/urine cultures ID following Code(s): A41.9 - SEPSIS, UNSPECIFIED ORGANISM Qualifiers: Sepsis type: sepsis due to unspecified organism Qualified Code(s): A41.9 - Sepsis, unspecified organism (2) UTI (urinary tract infection) Assessment/Plan: UA+, UC growing ecoli, await final sensitivity as above Code(s): N39.0 - URINARY TRACT INFECTION, SITE NOT SPECIFIED Qualifiers: Urinary tract infection type: acute cystitis Hematuria presence: with hematuria Qualified Code(s): N30.01 - Acute cystitis with hematuria (3) Metabolic encephalopathy Assessment/Plan: improving baseline cognitive impairment head ct without acute findings treat underlying and monitor for improvement Code(s): G93.41 - METABOLIC ENCEPHALOPATHY (4) Hypernatremia Assessment/Plan: improving Avoid rapid correction D5 100 ml/hr nephrology managed Code(s): E87.0 - HYPEROSMOLALITY AND HYPERNATREMIA (5) RIAZ (acute kidney injury) Assessment/Plan: improving IVF Code(s): N17.9 - ACUTE KIDNEY FAILURE, UNSPECIFIED (6) Hypokalemia Assessment/Plan: kcl 10meq x 2 monitor bmp Code(s): E87.6 - HYPOKALEMIA (7) Hypophosphatemia Assessment/Plan: potassium phosphate ordered monitor bmp Code(s): E83.39 - OTHER DISORDERS OF PHOSPHORUS METABOLISM (8) Transaminitis Assessment/Plan: improving Code(s): R74.0 - NONSPEC ELEV OF LEVELS OF TRANSAMNS & LACTIC ACID DEHYDRGNSE (9) Goals of care, counseling/discussion Assessment/Plan: palliative pending monitor for improvement and continue to discuss goals of care Code(s): Z71.89 - OTHER SPECIFIED COUNSELING
--- NOTE | 2018-08-27 12:22 | PN ---
Progress Note, SCAR[facility]UER - Note Progress Note: Significant deterioration since Nov admission, at which time pt demonstrated cognitive deficits, but followed directions, verbal etc. LP was "dry" under fluoro last admission. UTI Pt seen bedside, raised eye brows expressing surprise when told he was in the hospital. Dried blood? in oral cavity. Opens eyes more so today. Not following commands. Has cough, sounds congested. Encephalopathy? Reviewed with PNP. For neurology consult. Prognosis? Pt DNR/DNI. Mouth care. NPO Consider Clinimix if not medically contraindicated.
[2018-08-27 14:25] LABS: ANION GAP 4 MMOL/L (8-16); BLOOD UREA NITROGEN 32 mg/dL (7-18); CALCIUM 7.2 mg/dL (8.5-10.1); CHLORIDE 128 mmol/L (98-107); CO2 23 mmol/L (21-32); CREATININE 1.3 mg/dL (0.55-1.3); GLUCOSE,RANDOM 140 mg/dL (74-106); POTASSIUM 3.5 mmol/L (3.5-5.1); SODIUM 155 mmol/L (136-145)
--- NOTE | 2018-08-27 15:07 | PN ---
Progress Note, Physician History of Present Illness: Pt seen and examined at bedside. He appears comfortable. - Current Medication List Current Medications: Active Medications Heparin Sodium (Porcine) (Heparin -) 5,000 unit SQ TID NAN Last Admin: 08/27/18 13:47 Dose: 5,000 unit Meropenem 1 gm/ Dextrose 100 mls @ 200 mls/hr IVPB Q8H-IV NAN Last Admin: 08/27/18 09:55 Dose: 200 mls/hr Dextrose (D5w -) 1,000 mls @ 100 mls/hr IV ASDIR NAN Last Admin: 08/27/18 13:47 Dose: 100 mls/hr Insulin Aspart (Novolog Vial Sliding Scale -) 1 vial SQ ACHS NAN; Protocol Last Admin: 08/27/18 10:50 Dose: Not Given Nystatin (Nystop Powder -) 1 applic TP BID NAN Last Admin: 08/27/18 09:55 Dose: 1 applic - Objective Vital Signs: Vital Signs Temperature 98.2 F 08/27/18 14:00 Pulse Rate 69 08/27/18 14:00 Respiratory Rate 18 08/27/18 14:00 Blood Pressure 122/75 08/27/18 14:00 O2 Sat by Pulse Oximetry (%) 94 L 08/26/18 21:00 Constitutional: Yes: Calm Eyes: Yes: Conjunctiva Clear HENT: Yes: Atraumatic Cardiovascular: Yes: S1, S2 Respiratory: Yes: On Venti-Mask Gastrointestinal: Yes: Soft Genitourinary: Yes: Incontinence Musculoskeletal: Yes: Muscle Weakness Edema: No Neurological: Yes: Confusion Labs: CBC, BMP 08/27/18 06:30 08/27/18 13:10 INR, PTT INR 1.84 (0.83-1.09) H 08/24/18 15:30 Problem List - Problems (1) Hypernatremia Code(s): E87.0 - HYPEROSMOLALITY AND HYPERNATREMIA (2) Altered mental status Code(s): R41.82 - ALTERED MENTAL STATUS, UNSPECIFIED Qualifiers: Altered mental status type: unspecified Qualified Code(s): R41.82 - Altered mental status, unspecified Assessment/Plan Current Medications Generic Name Dose Route Start Last Admin Trade Name Freq PRN Reason Stop Dose Admin Heparin Sodium (Porcine) 5,000 unit 08/24/18 22:00 08/27/18 13:47 Heparin - SQ 5,000 unit TID NAN Administration Meropenem 1 gm/ Dextrose 100 mls @ 200 mls/hr 08/25/18 18:00 08/27/18 09:55 IVPB 200 mls/hr Q8H-IV NAN Administration Dextrose 1,000 mls @ 100 mls/hr 08/26/18 11:08 08/27/18 13:47 D5w - IV 100 mls/hr ASDIR NAN Administration Insulin Aspart 1 vial 08/24/18 22:00 08/27/18 10:50 Novolog Vial Sliding Scale - SQ Not Given ACHS NAN Protocol Nystatin 1 applic 08/24/18 22:00 08/27/18 09:55 Nystop Powder - TP 1 applic BID NAN Administration Impression 1. hypernatremia 2. RIAZ 3. UTI 4. change in mental status 5. dementia 6. CAD 7. HLD Plan - sodium continues to improve - cont d5w - speech and swallow follow up - renal function is improving - avoid a change of greater than 10 meq in 24 hours - cont abx - follow cultures - replace phos - will follow
[2018-08-27] MEDS: KCL 10 MEQ IVPB 10 MEQ/100 ML INFUS.BAG IVPB SCH ×2 (18:03→19:23)
[2018-08-28] MEDS ORDERED: PT OWN MED DRAWER 7, Y5N ONE ×2 (00:43→09:05)
[2018-08-28] MEDS: MEROPENEM 1 GM in DEXTROSE 5%-WATER 100 ML IVPB SCH ×3 (02:36→18:09)
[2018-08-28] MEDS: DEXTROSE 5%-WATER - 1,000 ML IV SCH ×2 (02:40→18:11)
[2018-08-28] MEDS: HEPARIN NA (PORCINE) 5,000 UNITS/ML 1ML VIAL SQ SCH ×3 (06:00→21:00)
[2018-08-28] MEDS: INSULIN SLIDING SCALE (NOVOLOG) 1 VIAL SQ SCH ×2 (06:02→11:17)
[2018-08-28 08:09] LABS: BASO % 0.6 % (0-2.0); EOS % 2.7 % (0-4.5); HEMATOCRIT 46.3 % (35.4-49); HEMOGLOBIN 14.4 GM/dL (11.7-16.9); LYMPH % 15.1 % (8-40); MCH 27.3 pg (25.7-33.7); MCHC 31.2 g/dl (32.0-35.9); MEAN CELL VOLUME 87.7 fl (80-96); NEUT % 77.6 % (42.8-82.8); PLATELET COUNT 65 K/MM3 (134-434); RBC 5.28 M/mm3 (4.00-5.60); RDW 15.8 % (11.9-15.9); WHITE BLOOD COUNT 7.1 K/mm3 (4.0-10.0)
[2018-08-28 08:51] LABS: ALBUMIN 1.9 g/dl (3.4-5.0); ALK PHOS 98 U/L (45-117); ANION GAP 6 MMOL/L (8-16); BILIRUBIN,TOTAL 0.8 mg/dL (0.2-1); BLOOD UREA NITROGEN 25 mg/dL (7-18); CALCIUM 7.3 mg/dL (8.5-10.1); CHLORIDE 120 mmol/L (98-107); CO2 23 mmol/L (21-32); CREATININE 1.1 mg/dL (0.55-1.3); GLUCOSE,RANDOM 108 mg/dL (74-106); MAGNESIUM 1.8 mg/dL (1.8-2.4); PHOSPHOROUS 2.5 mg/dL (2.5-4.9); POTASSIUM 3.9 mmol/L (3.5-5.1); SGOT/AST 99 U/L (15-37); SGPT/ALT 91 U/L (13-61); SODIUM 150 mmol/L (136-145); TOT PROT 5.7 g/dl (6.4-8.2)
--- NOTE | 2018-08-28 08:55 | CONSULT ---
Consult - text type - Consultation Consultation Note: Neurology HISTORY OF PRESENT ILLNESS: 72 y/o male with PMHx of HTN, HLD, NIDDM, CAD s/p 4 vessel CABG 1999, A-fib/ flutter s/p 2 ablations, Hx of bladder cancer, PAD s/p stent admitted from [facility] for Lethargy. Patient per notes is nonverbal, but reportedly had dereased appetite, lethargy, and weakness for 3 days prior to admission. The medical staff there placed the patient on D5 and NS drips, however the patient did not improve and thus sent to [facility] ED. Patient was recently discharged from [facility] on 08/06 for Falls and UTI. CT head completed and without acute changes. Being treated for multiple conditions including UTI, hypernatremia, remains nonverbal but was awake during my interaction. Recent Travel: None as per [place] Staff PAST MEDICAL HISTORY: HTN, HLD, NIDDM, CAD s/p 4 vessel CABG 1999, A-fib/flutter s/p 2 ablations, Hx of bladder cancer, PAD s/p stent PAST SURGICAL HISTORY: CABG, peripheral stenting, cardiac ablations Social History: Smoking: Unknown Alcohol: Unknown Drugs: Unknown Ambulation: Bed Bound as per [place] Staff Residence: [facility] Family History: Unknown Allergies No Known Allergies Allergy (Verified 08/24/18 14:50) HOME MEDICATIONS: Home Medications Medication Instructions Recorded Acetaminophen [Tylenol] 650 mg PO QID PRN 08/24/18 Aspirin 81 mg PO DAILY 08/24/18 Atorvastatin Ca [Lipitor] 10 mg PO HS 08/24/18 Enoxaparin [Lovenox -] 40 mg SQ DAILY 08/24/18 Ergocalciferol (Vitamin D2) 50,000 unit PO WEEKLY 08/24/18 [Vitamin D2] Insulin Lispro [Humalog] unit SQ 08/24/18 REVIEW OF SYSTEMS Unable to obtain PHYSICAL EXAMINATION Vital Signs Period Temp Pulse Resp BP Sys/Street Pulse Ox Last 24 Hr 98.1 F-98.7 F 61-70 18-21 116-155/61-82 94-94 GENERAL: Awake, alert, nonverbal HEAD: NCAT EYES: PERRL EARS, NOSE, THROAT: Dry mucous membranes NECK: Supple without lymphadenopathy, JVD LUNGS: CTA b/l, No wheezes, no crackles. HEART: Regular rate and rhythm, normal S1 and S2 without murmur ABDOMEN: Soft, + bowel sounds, no guarding EXTREMITIES: 2+ pulses, No peripheral edema. NEUROLOGICAL: CN appear intact, moves ext. grossly, sensory intact, gait deferred CBCD WBC 7.1 K/mm3 (4.0-10.0) 08/28/18 07:00 RBC 5.28 M/mm3 (4.00-5.60) 08/28/18 07:00 Hgb 14.4 GM/dL (11.7-16.9) 08/28/18 07:00 Hct 46.3 % (35.4-49) 08/28/18 07:00 MCV 87.7 fl (80-96) 08/28/18 07:00 MCHC 31.2 g/dl (32.0-35.9) L 08/28/18 07:00 RDW 15.8 % (11.9-15.9) 08/28/18 07:00 Plt Count 65 K/MM3 (134-434) L D 08/28/18 07:00 MPV 10.0 fl (7.5-11.1) 08/28/18 07:00 CMP Sodium 150 mmol/L (136-145) H 08/28/18 07:00 Potassium 3.9 mmol/L (3.5-5.1) 08/28/18 07:00 Chloride 120 mmol/L (98-107) H 08/28/18 07:00 Carbon Dioxide 23 mmol/L (21-32) 08/28/18 07:00 Anion Gap 6 MMOL/L (8-16) L 08/28/18 07:00 BUN 25 mg/dL (7-18) H 08/28/18 07:00 Creatinine 1.1 mg/dL (0.55-1.3) 08/28/18 07:00 Creat Clearance w eGFR > 60 (>60) 08/28/18 07:00 Random Glucose 108 mg/dL (74-106) H 08/28/18 07:00 Calcium 7.3 mg/dL (8.5-10.1) L 08/28/18 07:00 Total Bilirubin 0.8 mg/dL (0.2-1) 08/28/18 07:00 AST 99 U/L (15-37) H 08/28/18 07:00 ALT 91 U/L (13-61) H 08/28/18 07:00 Alkaline Phosphatase 98 U/L (45-117) 08/28/18 07:00 Total Protein 5.7 g/dl (6.4-8.2) L 08/28/18 07:00 Albumin 1.9 g/dl (3.4-5.0) L 08/28/18 07:00 CARDIAC ENZYMES Troponin I 0.05 ng/ml (0.00-0.05) 08/25/18 03:00 ASSESSMENT/PLAN: 72 y/o male with PMHx of HTN, HLD, NIDDM, CAD s/p 4 vessel CABG 1999, A-fib/ flutter s/p 2 ablations, Hx of bladder cancer, PAD s/p stent admitted from [facility] for Lethargy. Patient per notes is nonverbal, but reportedly had dereased appetite, lethargy, and weakness for 3 days prior to admission. The medical staff there placed the patient on D5 and NS drips, however the patient did not improve and thus sent to [facility] ED. Patient was recently discharged from [facility] on 08/06 for Falls and UTI. CT head completed and without acute changes. Being treated for multiple conditions including UTI, hypernatremia, remains nonverbal but was awake during my interaction. Likely multifactorial toxic metabolic encephalopathy 2/2 infection/hypernatremia. Deconditioned appearing. Continue hydration as tolerated, renal note reviewed, sodium optimization. ID note reviewed, on Meropenum for UTI. Monitor glucose, maintain normal range. Remains on ASA 81mg.
[2018-08-28] MEDS: NYSTATIN POWDER 100,000 UNITS/GM - 15 GM TOPICAL POWDER TP SCH ×2 (09:54→20:59)
--- NOTE | 2018-08-28 11:23 | PN ---
Progress Note, Physician History of Present Illness: patient stable no new issues awake but not verbal no complaints on face mask - Current Medication List Current Medications: Active Medications Albuterol/Ipratropium (Duoneb -) 1 amp NEB RTID [facility] Heparin Sodium (Porcine) (Heparin -) 5,000 unit SQ TID [facility] Last Admin: 08/28/18 06:00 Dose: 5,000 unit Meropenem 1 gm/ Dextrose 100 mls @ 200 mls/hr IVPB Q8H-IV NAN Last Admin: 08/28/18 09:51 Dose: 200 mls/hr Dextrose (D5w -) 1,000 mls @ 83 mls/hr IV ASDIR [facility] Last Admin: 08/28/18 02:40 Dose: 83 mls/hr Insulin Aspart (Novolog Vial Sliding Scale -) 1 vial SQ ACHS [facility]; Protocol Last Admin: 08/28/18 11:17 Dose: Not Given Nystatin (Nystop Powder -) 1 applic TP BID [facility] Last Admin: 08/28/18 09:54 Dose: 1 applic - Objective Vital Signs: Vital Signs Temperature 98.7 F 08/28/18 06:00 Pulse Rate 70 08/28/18 06:00 Respiratory Rate 19 08/28/18 06:00 Blood Pressure 155/82 08/28/18 06:00 O2 Sat by Pulse Oximetry (%) 94 L 08/27/18 21:00 Constitutional: Yes: No Distress, Calm, Other (non verbal) Cardiovascular: Yes: S1, S2 Respiratory: Yes: Regular, CTA Bilaterally Gastrointestinal: Yes: Normal Bowel Sounds, Soft Musculoskeletal: Yes: WNL Extremities: Yes: WNL Neurological: Yes: Alert, Confusion Psychiatric: Yes: Alert Labs: CBC, BMP 08/28/18 07:00 08/28/18 07:00 INR, PTT INR 1.84 (0.83-1.09) H 08/24/18 15:30 Assessment/Plan 1. hypernatremia 2. RIAZ 3. UTI 4. change in mental status 5. dementia 6. CAD 7. 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
--- NOTE | 2018-08-28 11:27 | PN ---
Progress Note, Physician Chief Complaint: Pt lying in bed. alert, pt mouthing few words. unable to obtain further - Current Medication List Current Medications: Active Medications Albuterol/Ipratropium (Duoneb -) 1 amp NEB RTID NAN Heparin Sodium (Porcine) (Heparin -) 5,000 unit SQ TID [facility] Last Admin: 08/28/18 06:00 Dose: 5,000 unit Meropenem 1 gm/ Dextrose 100 mls @ 200 mls/hr IVPB Q8H-IV NAN Last Admin: 08/28/18 09:51 Dose: 200 mls/hr Dextrose (D5w -) 1,000 mls @ 83 mls/hr IV ASDIR NAN Last Admin: 08/28/18 02:40 Dose: 83 mls/hr Insulin Aspart (Novolog Vial Sliding Scale -) 1 vial SQ ACHS [facility]; Protocol Last Admin: 08/28/18 11:17 Dose: Not Given Nystatin (Nystop Powder -) 1 applic TP BID [facility] Last Admin: 08/28/18 09:54 Dose: 1 applic - Objective Vital Signs: Vital Signs Temperature 98.7 F 08/28/18 06:00 Pulse Rate 70 08/28/18 06:00 Respiratory Rate 19 08/28/18 06:00 Blood Pressure 155/82 08/28/18 06:00 O2 Sat by Pulse Oximetry (%) 94 L 08/27/18 21:00 Constitutional: Yes: Well Nourished, No Distress Cardiovascular: Yes: WNL, Regular Rate and Rhythm Respiratory: Yes: Diminished, Rhonchi (anterior thorax). No: SOB, Tachypnea, Wheezes Gastrointestinal: Yes: WNL, Normal Bowel Sounds, Soft, Abdomen, Obese. No: Distention, Tenderness Genitourinary: Yes: Incontinence Extremities: Yes: WNL Edema: No Neurological: Yes: Alert, Confusion, Pre-Existing Deficit Psychiatric: Yes: Alert Labs: CBC, BMP 08/28/18 07:00 08/28/18 07:00 INR, PTT INR 1.84 (0.83-1.09) H 08/24/18 15:30 Assessment/Plan (1) Sepsis Assessment/Plan: improving 2/2 uti-ecoli esbl Meropenem day 4 ID following Code(s): A41.9 - SEPSIS, UNSPECIFIED ORGANISM Qualifiers: Sepsis type: sepsis due to unspecified organism Qualified Code(s): A41.9 - Sepsis, unspecified organism (2) UTI (urinary tract infection) Assessment/Plan: Code(s): N39.0 - URINARY TRACT INFECTION, SITE NOT SPECIFIED Qualifiers: Urinary tract infection type: acute cystitis Hematuria presence: with hematuria Qualified Code(s): N30.01 - Acute cystitis with hematuria (3) Metabolic encephalopathy Assessment/Plan: improving baseline cognitive impairment head ct without acute findings MBS to r/o aspiration treat underlying and monitor for improvement Code(s): G93.41 - METABOLIC ENCEPHALOPATHY (4) Hypernatremia Assessment/Plan: improving Avoid rapid correction d5 nephrology managed Code(s): E87.0 - HYPEROSMOLALITY AND HYPERNATREMIA (5) RIAZ (acute kidney injury) Assessment/Plan: improving IVF Code(s): N17.9 - ACUTE KIDNEY FAILURE, UNSPECIFIED (6) Hypokalemia Assessment/Plan: improved monitor bmp Code(s): E87.6 - HYPOKALEMIA (7) Hypophosphatemia Assessment/Plan: improved Code(s): E83.39 - OTHER DISORDERS OF PHOSPHORUS METABOLISM (8) Transaminitis Assessment/Plan: improving Code(s): R74.0 - NONSPEC ELEV OF LEVELS OF TRANSAMNS & LACTIC ACID DEHYDRGNSE (9) Goals of care, counseling/discussion Assessment/Plan: pt's status discussed w/ HCP Rolanda, who reports she would not want a PEG tube if needed. I informed her we will continue to monitor Isaac and monitor for improvement Code(s): Z71.89 - OTHER SPECIFIED COUNSELING
--- NOTE | 2018-08-28 12:43 | PN ---
Progress Note, MANAGER ANALYSIS - Note Progress Note: Selected Entries 08/26/18 08/26/18 08/26/18 02:00 02:11 03:05 Breakfast Temperature 99.7 F H 100.1 F H 99.2 F Respiratory Rate 08/26/18 08/26/18 08/26/18 05:15 06:00 10:00 Breakfast Temperature 97.7 F 99.4 F 98.9 F Respiratory Rate 08/26/18 08/26/18 08/27/18 14:00 18:00 07:25 Breakfast Temperature 100.7 F H 99.6 F 98.3 F Respiratory Rate 08/27/18 08/28/18 08/28/18 08:13 06:00 10:39 Breakfast NPO Temperature 98.5 F 98.7 F Respiratory 19 Rate Laboratory Tests 08/26/18 08/27/18 08/28/18 06:00 06:30 07:00 WBC 10.0 9.8 7.1 Neurology consult appreciated. UTI. CXR noted Pt much more alert, dysarthric, responding to questions. Confused, distractible. Has a cough, upper airway congestion. Dried blood, anteriorally, near frenulum and on tongue. Suggest Mouth care and MBS to r/o aspiration.
[2018-08-28] MEDS: ALBUTEROL SO4 2.5/IPRATROPIUM 0.5 INH SOL 3 ML VIAL.NEB. NEB SCH ×2 (13:17→20:40)
--- NOTE | 2018-08-28 15:24 | PN ---
Progress Note, Physician History of Present Illness: Pt seen and examined at bedside. He is more awake and interactive but still confused. - Current Medication List Current Medications: Active Medications Albuterol/Ipratropium (Duoneb -) 1 amp NEB RTID [facility] Last Admin: 08/28/18 13:17 Dose: 1 amp Heparin Sodium (Porcine) (Heparin -) 5,000 unit SQ TID [facility] Last Admin: 08/28/18 06:00 Dose: 5,000 unit Meropenem 1 gm/ Dextrose 100 mls @ 200 mls/hr IVPB Q8H-IV NAN Last Admin: 08/28/18 09:51 Dose: 200 mls/hr Dextrose (D5w -) 1,000 mls @ 83 mls/hr IV ASDIR [facility] Last Admin: 08/28/18 02:40 Dose: 83 mls/hr Nystatin (Nystop Powder -) 1 applic TP BID [facility] Last Admin: 08/28/18 09:54 Dose: 1 applic - Objective Vital Signs: Vital Signs Temperature 98.7 F 08/28/18 09:00 Pulse Rate 70 08/28/18 09:00 Respiratory Rate 19 08/28/18 09:00 Blood Pressure 155/82 08/28/18 09:00 O2 Sat by Pulse Oximetry (%) 94 L 08/28/18 09:00 Constitutional: Yes: Calm Eyes: Yes: Conjunctiva Clear Cardiovascular: Yes: S1, S2 Respiratory: Yes: On Venti-Mask Gastrointestinal: Yes: Soft Genitourinary: Yes: Incontinence Musculoskeletal: Yes: Muscle Weakness Edema: No Neurological: Yes: Confusion Labs: CBC, BMP 08/28/18 07:00 08/28/18 07:00 INR, PTT INR 1.84 (0.83-1.09) H 08/24/18 15:30 Problem List - Problems (1) Hypernatremia Code(s): E87.0 - HYPEROSMOLALITY AND HYPERNATREMIA (2) Altered mental status Code(s): R41.82 - ALTERED MENTAL STATUS, UNSPECIFIED Qualifiers: Altered mental status type: unspecified Qualified Code(s): R41.82 - Altered mental status, unspecified Assessment/Plan Current Medications Generic Name Dose Route Start Last Admin Trade Name Freq PRN Reason Stop Dose Admin Albuterol/Ipratropium 1 amp 08/28/18 14:00 08/28/18 13:17 Duoneb - NEB 1 amp RTID NAN Administration Heparin Sodium (Porcine) 5,000 unit 08/24/18 22:00 08/28/18 06:00 Heparin - SQ 5,000 unit TID NAN Administration Meropenem 1 gm/ Dextrose 100 mls @ 200 mls/hr 08/25/18 18:00 08/28/18 09:51 IVPB 200 mls/hr Q8H-IV NAN Administration Dextrose 1,000 mls @ 83 mls/hr 08/27/18 15:07 08/28/18 02:40 D5w - IV 83 mls/hr ASDIR NAN Administration Nystatin 1 applic 08/24/18 22:00 08/28/18 09:54 Nystop Powder - TP 1 applic BID NAN Administration Impression 1. hypernatremia 2. RIAZ 3. UTI 4. change in mental status 5. dementia 6. CAD 7. HLD Plan - cont d5w - sodium improving - renal function improving - family discussing GOC - avoid a change of greater than 10 meq in 24 hours - cont abx - will follow
[2018-08-29] MEDS ORDERED: PT OWN MED DRAWER 7, Y5N ONE (00:11)
[2018-08-29] MEDS: MEROPENEM 1 GM in DEXTROSE 5%-WATER 100 ML IVPB SCH ×2 (02:32→10:35)
[2018-08-29] MEDS: DEXTROSE 5%-WATER - 1,000 ML IV SCH (05:59)
[2018-08-29] MEDS: HEPARIN NA (PORCINE) 5,000 UNITS/ML 1ML VIAL SQ SCH (06:00)
[2018-08-29] MEDS: ALBUTEROL SO4 2.5/IPRATROPIUM 0.5 INH SOL 3 ML VIAL.NEB. NEB SCH (07:15)
--- NOTE | 2018-08-29 08:51 | PN ---
Progress Note (short form) - Note Progress Note: Neurology HISTORY OF PRESENT ILLNESS: 72 y/o male with PMHx of HTN, HLD, NIDDM, CAD s/p 4 vessel CABG 1999, A-fib/ flutter s/p 2 ablations, Hx of bladder cancer, PAD s/p stent admitted from [facility] for Lethargy. Patient per notes is nonverbal, but reportedly had dereased appetite, lethargy, and weakness for 3 days prior to admission. The medical staff there placed the patient on D5 and NS drips, however the patient did not improve and thus sent to [facility] ED. Patient was recently discharged from [facility] on 08/06 for Falls and UTI. CT head completed and without acute changes. Being treated for multiple conditions including UTI, hypernatremia, remains nonverbal but was awake during my interaction. Completed modified barium swallow, notes reviewed. Possibly PEG vs palliative care per speech/swallows. Remains on meropenum, ID following. Also on Nystatin powder. Renal note reviewed. Active Medications Albuterol/Ipratropium (Duoneb -) 1 amp NEB RTID [facility] Last Admin: 08/29/18 07:15 Dose: 1 amp Heparin Sodium (Porcine) (Heparin -) 5,000 unit SQ TID [facility] Last Admin: 08/29/18 06:00 Dose: 5,000 unit Meropenem 1 gm/ Dextrose 100 mls @ 200 mls/hr IVPB Q8H-IV [facility] Last Admin: 08/29/18 02:32 Dose: 200 mls/hr Dextrose (D5w -) 1,000 mls @ 83 mls/hr IV ASDIR [facility] Last Admin: 08/29/18 05:59 Dose: 83 mls/hr Nystatin (Nystop Powder -) 1 applic TP BID [facility] Last Admin: 08/28/18 20:59 Dose: 1 applic PHYSICAL EXAMINATION Vital Signs Period Temp Pulse Resp BP Sys/Street Pulse Ox Last 24 Hr 97.8 F-99.0 F 61-70 18-20 103-155/61-82 94-96 GENERAL: Awake, alert, nonverbal HEAD: NCAT EYES: PERRL EARS, NOSE, THROAT: Dry mucous membranes NECK: Supple without lymphadenopathy, JVD LUNGS: CTA b/l, No wheezes, no crackles. HEART: Regular rate and rhythm, normal S1 and S2 without murmur ABDOMEN: Soft, + bowel sounds, no guarding EXTREMITIES: 2+ pulses, No peripheral edema. NEUROLOGICAL: CN appear intact, moves ext. grossly, sensory intact, gait deferred CBCD WBC 7.1 K/mm3 (4.0-10.0) 08/28/18 07:00 RBC 5.28 M/mm3 (4.00-5.60) 08/28/18 07:00 Hgb 14.4 GM/dL (11.7-16.9) 08/28/18 07:00 Hct 46.3 % (35.4-49) 08/28/18 07:00 MCV 87.7 fl (80-96) 08/28/18 07:00 MCHC 31.2 g/dl (32.0-35.9) L 08/28/18 07:00 RDW 15.8 % (11.9-15.9) 08/28/18 07:00 Plt Count 65 K/MM3 (134-434) L D 08/28/18 07:00 MPV 10.0 fl (7.5-11.1) 08/28/18 07:00 CMP Sodium 150 mmol/L (136-145) H 08/28/18 07:00 Potassium 3.9 mmol/L (3.5-5.1) 08/28/18 07:00 Chloride 120 mmol/L (98-107) H 08/28/18 07:00 Carbon Dioxide 23 mmol/L (21-32) 08/28/18 07:00 Anion Gap 6 MMOL/L (8-16) L 08/28/18 07:00 BUN 25 mg/dL (7-18) H 08/28/18 07:00 Creatinine 1.1 mg/dL (0.55-1.3) 08/28/18 07:00 Creat Clearance w eGFR > 60 (>60) 08/28/18 07:00 Random Glucose 108 mg/dL (74-106) H 08/28/18 07:00 Calcium 7.3 mg/dL (8.5-10.1) L 08/28/18 07:00 Total Bilirubin 0.8 mg/dL (0.2-1) 08/28/18 07:00 AST 99 U/L (15-37) H 08/28/18 07:00 ALT 91 U/L (13-61) H 08/28/18 07:00 Alkaline Phosphatase 98 U/L (45-117) 08/28/18 07:00 Total Protein 5.7 g/dl (6.4-8.2) L 08/28/18 07:00 Albumin 1.9 g/dl (3.4-5.0) L 08/28/18 07:00 CARDIAC ENZYMES Troponin I 0.05 ng/ml (0.00-0.05) 08/25/18 03:00 ASSESSMENT/PLAN: 72 y/o male with PMHx of HTN, HLD, NIDDM, CAD s/p 4 vessel CABG 1999, A-fib/ flutter s/p 2 ablations, Hx of bladder cancer, PAD s/p stent admitted from [facility] for Lethargy. Patient per notes is nonverbal, but reportedly had dereased appetite, lethargy, and weakness for 3 days prior to admission. The medical staff there placed the patient on D5 and NS drips, however the patient did not improve and thus sent to [facility] ED. Patient was recently discharged from [facility] on 08/06 for Falls and UTI. CT head completed and without acute changes. Being treated for multiple conditions including UTI, hypernatremia, remains nonverbal but was awake during my interaction. Likely multifactorial toxic metabolic encephalopathy 2/2 infection/hypernatremia. Deconditioned appearing. Continue hydration as tolerated, renal note reviewed, sodium optimization. ID note reviewed, on Meropenum for UTI. Remains on ASA 81mg. Speech/swallow reviewed, PEG vs palliative care. Monitor glucose, maintain normal range. Continued medical mgmt.
[2018-08-29 09:16] LABS: BASO % 0.3 % (0-2.0); HEMATOCRIT 44.7 % (35.4-49); HEMOGLOBIN 14.2 GM/dL (11.7-16.9); LYMPH % 22.6 % (8-40); MCH 27.4 pg (25.7-33.7); MCHC 31.7 g/dl (32.0-35.9); MEAN CELL VOLUME 86.6 fl (80-96); MONO % 4.8 % (3.8-10.2); NEUT % 70.3 % (42.8-82.8); PLATELET COUNT 64 K/MM3 (134-434); RBC 5.16 M/mm3 (4.00-5.60); RDW 15.7 % (11.9-15.9); WHITE BLOOD COUNT 5.7 K/mm3 (4.0-10.0)
[2018-08-29 10:03] LABS: ALK PHOS 113 U/L (45-117); ANION GAP 8 MMOL/L (8-16); BILIRUBIN,TOTAL 1.3 mg/dL (0.2-1); BLOOD UREA NITROGEN 21 mg/dL (7-18); CALCIUM 7.2 mg/dL (8.5-10.1); CHLORIDE 112 mmol/L (98-107); CO2 25 mmol/L (21-32); GLUCOSE,RANDOM 113 mg/dL (74-106); MAGNESIUM 1.6 mg/dL (1.8-2.4); PHOSPHOROUS 2.3 mg/dL (2.5-4.9); POTASSIUM 3.4 mmol/L (3.5-5.1); SGOT/AST 128 U/L (15-37); SGPT/ALT 110 U/L (13-61); SODIUM 145 mmol/L (136-145); TOT PROT 5.8 g/dl (6.4-8.2)
[2018-08-29] MEDS: NYSTATIN POWDER 100,000 UNITS/GM - 15 GM TOPICAL POWDER TP SCH (10:35)
--- NOTE | 2018-08-29 10:35 | DS ---
Physical Examination Vital Signs: Vital Signs Temperature 97.9 F 08/29/18 09:07 Pulse Rate 74 08/29/18 09:07 Respiratory Rate 28 H 08/29/18 09:07 Blood Pressure 119/64 08/29/18 09:07 O2 Sat by Pulse Oximetry (%) 96 08/28/18 21:00 Constitutional: Yes: Well Nourished, No Distress Cardiovascular: Yes: WNL Respiratory: Yes: Regular, On Nasal O2, Rales, Rhonchi. No: Tachypnea, Wheezes Gastrointestinal: Yes: WNL, Normal Bowel Sounds, Soft, Abdomen, Obese. No: Distention, Tenderness Renal/: Yes: Incontinence Edema: No Neurological: Yes: Alert, Confusion Psychiatric: Yes: Alert Labs: CBC, BMP 08/29/18 08:45 08/29/18 08:45 Discharge Summary Reason For Visit: UTI/HYPERNATREMIA/AMS Current Active Problems RIAZ (acute kidney injury) (Acute) Altered mental status (Acute) Goals of care, counseling/discussion (Acute) Hypernatremia (Acute) Hypokalemia (Acute) Hypophosphatemia (Acute) Metabolic encephalopathy (Acute) Sepsis (Acute) Transaminitis (Acute) UTI (urinary tract infection) (Acute) Hospital Course: is a 72 year old male with PMH of HTN, HLD, NIDDM, CAD s/p CABG, A- fib/flutter s/p 2 ablations, Hx of bladder cancer, PAD s/p stent admitted from [facility] for lethargy. Pt was recently discharged on 08/05 after being treated for UTI/sepsis. Pt also had a neuro work up for altered mental status/lethargy. At that time, frontal lobe dementia was suspected by neurologist. Upon speaking with pt's sister Rolanda, she reports pt has had underlying undiagnosed cognitive impairment throughout his life but has been functional in society. However, since last admission, pt has not returned to that baseline per hcp. Pt's mental status has not improved at SNF as well. Head CT w/ chronic infarcts. Upon admission, pt noted to be severely dehydrated, hypernatremic and septic 2/2 uti- ecoli esbl. As pt's Na normalized and with few days of antibx, pt's lethargy improved, however pt still confused, often non verbal and minimally interactive. Pt underwent MBS which revealed profoundly impaired swallowing. Suspect progressive dementia. I discussed with HCP Rolanda pt's condition and the need for PEG placement for adequate nutrition, Rolanda wished to not pursue PEG tube or aggressive measures. We spoke about hospice options, MOLST form signed, Pt made comfort measures only. Pt to return to [facility] on comfort measures. Pt may have pleasure feeds. 40 minutes spent in discharge planning Condition: Fair - Instructions Diet, Activity, Other Instructions: COMFORT MEASURES ONLY MOLST FORM INCLUDED ROLANDA IS HCP PLEASURE FEEDS IF PT WANTS - PLEASE FEED HIM HE WANTS , WATER, ETC Referrals: Cosme Phan MD [Primary Care Provider] - Disposition: [facility]ILITY - Home Medications Comprehensive Discharge Medication List: Ambulatory Orders Nystatin Cream [Mycostatin Cream -] 1 applic TP Q12H PRN applic 07/29/18 Olanzapine [ZyPREXA -] 10 mg PO BID #60 tablet 07/29/18
--- NOTE | 2018-08-29 13:02 | PN ---
Progress Note, Physician - Current Medication List Current Medications: Active Medications Albuterol/Ipratropium (Duoneb -) 1 amp NEB RTID [facility] Last Admin: 08/29/18 07:15 Dose: 1 amp Nystatin (Nystop Powder -) 1 applic TP BID [facility] Last Admin: 08/29/18 10:35 Dose: 1 applic - Objective Vital Signs: Vital Signs Temperature 97.9 F 08/29/18 09:07 Pulse Rate 74 08/29/18 09:07 Respiratory Rate 28 H 08/29/18 09:07 Blood Pressure 119/64 08/29/18 09:07 O2 Sat by Pulse Oximetry (%) 96 08/28/18 21:00 Labs: CBC, BMP 08/29/18 08:45 08/29/18 08:45 INR, PTT INR 1.84 (0.83-1.09) H 08/24/18 15:30
[2018-08-29 19:19] VITALS: BP 117/62; PULSE 68; TEMP 98.6
== END 2018-08-29 13:37 | DRG 871 ==
LOC: JER 14:36 → EDSEX 14:36 → MERGE 18:26 → JERBED 18:26 → J7W 08-25 04:06 → J6S 08-25 21:23
PROVIDERS: ADMIT Internal Medicine; ATTEND Nurse Practitioner Family
DX: A41.9 Sepsis, unspecified organism (principal); G93.41 Metabolic encephalopathy; N39.0 Urinary tract infection, site not specified; E87.0 Hyperosmolality and hypernatremia; N17.9 Acute kidney failure, unspecified; I10 Essential (primary) hypertension; E11.9 Type 2 diabetes mellitus without complications; I25.10 Atherosclerotic heart disease of native coronary artery without angina pectoris; E87.6 Hypokalemia; E83.39 Other disorders of phosphorus metabolism; R74.0 Nonspecific elevation of levels of transaminase and lactic acid dehydrogenase [LDH]; Z95.1 Presence of aortocoronary bypass graft; R41.82 Altered mental status, unspecified; E78.5 Hyperlipidemia, unspecified; F03.90 Unspecified dementia, unspecified severity, without behavioral disturbance, psychotic disturbance, mood disturbance, and anxiety; E86.0 Dehydration; D69.6 Thrombocytopenia, unspecified; E88.09 Other disorders of plasma-protein metabolism, not elsewhere classified
CPT/HCPCS: 36415; 70450-TC; 71045-TC-FY; 74230-TC-FY; 76705-TC; 76775-TC; 80048; 80053; 80074; 80076; 81003; 81015; 82570; 82803; 82962; 83605; 83735; 83935; 84100; 84295; 84300; 84484; 85025; 85027; 85610; 85730; 86705; 87040; 87086; 87186; 87804; 92611-GN; 93005; 93010; 94640; 97116-GP; 97161-GP; 99285-25; J0131; J1644; J7030